=== PATIENT | male | born 1935 | race Caucasian/White ===

== ENCOUNTER → 2021-05-08 09:25 | Outpatient (BNVA) | payer MEDICARE, SELFPAY | PROVIDERS: PCP Pediatrics; Visit Provider Surgery Vascular Surgery | DX: I71.4 Abdominal aortic aneurysm, without rupture (principal) | CPT/HCPCS: 99202 ==

== ENCOUNTER → 2021-05-10 12:39 | Outpatient (BNVA) | payer OTHER, SELFPAY | PROVIDERS: PCP Pediatrics; Visit Provider Internal Medicine Cardiovascular Disease | DX: Z01.810 Encounter for preprocedural cardiovascular examination (principal); I71.4 Abdominal aortic aneurysm, without rupture | CPT/HCPCS: 93005 ==

== ENCOUNTER → 2021-05-22 09:29 | Outpatient (REF) | payer MEDICARE, SELFPAY ==
--- NOTE | 2021-05-22 09:33 | CA_ITS ---
Transthoracic Echocardiogram Patient (Last, First, Middle): Kenneth Clark, Gender: Male Date of : 1935 Age: 85 Procedure Date: 05/22/2021 Procedure Type: Transthoracic Echocardiogram Location: OP Height: 165.1 cm Weight: 62.14 kg BSA: 1.68 m2 Heart Rate: bpm BP: 118 / 70 mmHg Clinical Support Tech: Referring MD: Edwin Burnette MD Doctor Of Dental Surgery: Edwin Burnette MD Symptoms: Z01.810 - Encounter for preprocedural cardiovascular exam... Study Quality: Fair ECG Rhythm: Sinus Conclusions: - Normal left ventricular size and systolic function. - E/E prime ratio is between 8 and 15 consistent with indeterminate filling pressures. - Normal right ventricular cavity size and systolic function. - There is mild calcification of the aortic valve. There is mild thickening of the aortic valve. There is no aortic valve stenosis. - There is mild dilatation of the ascending aorta measuring 4.00 cm. Findings Left Ventricle Normal left ventricular size and systolic function. There is mildly increased left ventricular wall thickness. The visually estimated ejection fraction is between 60-65%. There is no evidence of regional wall motion abnormalities. Abnormal diastolic function is noted. Spectral Doppler is indicative of an impaired relaxation filling pattern. E/E prime ratio is between 8 and 15 consistent with indeterminate filling pressures. Right Ventricle Normal right ventricular cavity size and systolic function. Atria Both atria are normal in size. Aortic Valve There is mild calcification of the aortic valve. There is mild thickening of the aortic valve. There is no aortic valve stenosis. There is trace (trivial) aortic valve regurgitation. Mitral Valve The mitral valve appears normal. There is trace mitral valve regurgitation. There is no mitral valve stenosis. Pulmonic Valve The pulmonic valve is likely normal. There is no pulmonic valve regurgitation. Tricuspid Valve Normal tricuspid valve structure and function. There is trace tricuspid valve regurgitation. Tricuspid regurgitation envelope is inadequate for calculation of right ventricular systolic pressure. Normal right atrial pressure. Great Vessels There is mild dilatation of the ascending aorta measuring 4.00 cm. The visualized portions of the pulmonary artery and branches are normal. Venous The inferior vena cava is normal in size and collapses greater than 50% with inspiration. Pericardium/Pleural Normal pericardial structure. There is no evidence of pericardial effusion. Prior Study Comparison No prior study available for comparison. Measurements 2D Linear Measurements IVSd: 1.23 0.6-0.9/0.6-1.0 cm LVIDd: 3.29 3.9-5.3/4.2-5.9 cm LVIDd Index: 1.96 2.4-3.2/2.2-3.1 cm/m2 LVIDs: 2.13 2.0-3.6 cm LVPWd: 1.23 0.7-1.1 cm Ao Root: 3.40 2.1-3.5 cm LA Diam: 2.60 2.7-3.8/3.0-4.0 cm LAIDs Index: 1.55 1.5-2.3 cm/m2 LV Mass: 160.68 67-162/88-224 g LV Mass Index: 95.64 43-95/49-115 g/m2 LVOT Diam: 2.00 3.0+(-)1.3 cm Mitral Valve MV Pk E: 0.43 MV PK A: 0.93 MV Decel Time: 190.00 E/A: 0.50 E'Lateral: 4.90 E'Medial: 4.35 E/E' Med: 10.00 E/E' Lat: 8.80 PHT: 56.00 MVA PHT: 3.93 Decel Posey: 2.28 Aortic Valve AoV Pk Ángel: 1.67 AoV Mn Ángel: 1.25 AoV VTI: 0.34 AoV Pk Grad: 11.00 Aov Mn Grad: 7.00 SUMAYA Cont.VTI: 1.77 LVOT LVOT Pk Ángel: 0.83 LVOT Mn Ángel: 0.58 LVOT VTI: 0.19 LVOT Pk Grad: 3.00 LVOT Mn Grad: 2.00 LVOT Diam: 2.00 LVOT Area: 3.14 Diastolic Function MV Pk E: 0.43 MV Pk A: 0.93 E/A: 0.50 E'Medial: 4.35 E/E' Med: 10.00 E' Laterial: 4.90 E/E' Lat: 8.80 Tricuspid Valve TR Pk Ángel: 2.33 TR Pk Grad: 22.00 Great Vessels Aorta Ao Root-2D: 3.40 2.0-3.7 cm Ao Asc: 4.00 2.1-3.4 cm Pulmonary Valve PV Pk Ángel: 1.79 Peak PV Grad: 13.00 Updated in Other Vendor System with Status of Final Edwin Burnette MD electronically signed on 05/23/2021 6:54:50 PM with status of Final
== END ==
LOC: HO.CARD 09:29
PROVIDERS: PCP Pediatrics; Visit Provider Internal Medicine Cardiovascular Disease
DX: Z01.810 Encounter for preprocedural cardiovascular examination (principal)
CPT/HCPCS: 93306

== ENCOUNTER 2021-05-28 06:15 | Inpatient (IN) | payer MEDICARE, SELFPAY ==
[2021-05-16 12:16] VITALS: BMI 23.2
[2021-05-16 12:23] VITALS: BP 105/55; PULSE 70; RESP 20; O2SAT 97
--- NOTE | 2021-05-16 12:38 | HO.ANESPROP2 ---
Documented by User: Re Ramirez NP 05/17/21 12:40 HPI - Anesthesia Eval Consult details Narrative: 85yo M for Aortic Endovascular Repair PMFSH Active Problems Active Problems: All Active Problems (Updated 05/16/21 @ 12:16 by Kierra Kern RN) AAA (abdominal aortic aneurysm) without rupture (Acute) Preop cardiovascular exam (Acute) Past Medical History Medical History Asthma COVID-19 vaccine series completed Exercises daily GERD (gastroesophageal reflux disease) Hypercholesteremia Peripheral artery disease Restless leg syndrome Small bowel obstruction Family History Family History Mother Ovarian cancer Breast cancer Father Stroke Sister Lung cancer Brother Lung cancer Sister Arthritis Family history of problems with anesthesia: No Surgical History Surgical History H/O colonoscopy H/O hernia repair History of cholecystectomy History of esophagogastroduodenoscopy (EGD) Hx of exploratory laparotomy History of Problems with Anesthesia: No Social History Social History Are you a primary director of healthcare systems to a significant other at home: No Do you presently have visiting nurse or other home services: No Alcohol intake: never Patient Tobacco Use Status: Never used Tobacco Use of substances other than those prescribed or required for medical reasons: No Have you been hit, kicked, punched, or otherwise hurt by someone within the past year? If so, by whom?: No Are you DNR?: No Advance Directives: Yes Advance Directives Information Provided: Yes Advance Directives on File: Yes Advance Directives Date on File: 05/16/21 Recently lost weight without trying: No Eating poorly because of decreased appetite: No Nutrition Risks: No Nutritional Risk Poor oral hygiene: No (upper full denture) Narrative Narrative: No recent illness No CP/SOB with extensive hiking, kayaking, mountain climbing, biking Meds Allergies Allergy/AdvReac Type Severity Reaction Status Date / Time No Known Allergies Allergy Verified 05/28/21 06:35 Home Medications Medication Instructions Recorded Confirmed Last Taken Type clonazepam 1 mg tablet 1 mg PO BEDTIME PRN 05/08/21 05/15/21 Unknown History fluticasone propionate 0.05 % 1 appl TOPICAL DAILY 05/08/21 05/15/21 Unknown History topical cream omeprazole 20 mg capsule,delayed 20 mg PO DAILY 05/08/21 05/15/21 Unknown History release rosuvastatin 40 mg tablet 40 mg PO DAILY 05/08/21 05/15/21 Unknown History albuterol sulfate 90 mcg/actuation 2 puff INHALATION Q4-6H PRN 05/15/21 05/15/21 Unknown History aerosol inhaler (ProAir HFA) aspirin 81 mg tablet 81 mg PO DAILY 05/16/21 05/16/21 05/27/21 History cholecalciferol (vitamin D3) 50 50 mcg PO DAILY 05/16/21 05/16/21 Unknown History mcg (2,000 unit) capsule (Vitamin D3) multivitamin 1 tab PO DAILY 05/16/21 05/16/21 Unknown History omega-3 fatty acids-fish oil 684 1 cap PO DAILY 05/16/21 05/16/21 Unknown History mg-1,200 mg capsule,delayed release Exam Exam Date and Time: May 16, 2021 1238 Height,Weight and Vital Signs: Height 5 ft 5 in Weight 63.3 kg Last Vital Signs Pulse 70 05/16/21 12:23 Resp 20 05/16/21 12:23 BP 105/55 L 05/16/21 12:23 Pulse Ox 97 05/16/21 12:23 Pertinent Lab Results Pertinent Lab Results: 05/16/21 13:15 Type and Screen Routine 05/16/21 13:20 Basic Metabolic Panel Routine Complete Blood Count no Diff Routine Partial Thromboplastin Time Routine Prothrombin Time INR Routine Laboratory Last Values WBC 5.9 X10*3/uL (4.8-10.8) 05/16/21 13:20 RBC 4.88 X10*6/uL (4.60-5.80) 05/16/21 13:20 Hgb 15.1 g/dl (14.0-18.0) 05/16/21 13:20 Hct 45.7 % (42.0-52.0) 05/16/21 13:20 MCV 93.6 fL (80.0-98.0) 05/16/21 13:20 MCH 30.9 pg (27.0-33.0) 05/16/21 13:20 MCHC 33.0 g/dl (31.0-36.0) 05/16/21 13:20 RDW 12.3 % (11.0-16.0) 05/16/21 13:20 Plt Count 157 X10*3/uL (160-400) L 05/16/21 13:20 MPV 9.1 fL (9.4-12.4) L 05/16/21 13:20 Absolute Nucleated RBC 0.000 X10*3/uL (0.0-0.012) 05/16/21 13:20 Nucleated RBC % (auto) 0.0 /100WBC (0.0-0.2) 05/16/21 13:20 PT 12.3 SEC (9.9-13.0) 05/16/21 13:20 INR 1.1 (0.9-1.1) 05/16/21 13:20 APTT 40.4 SEC (24.1-38.0) H 05/16/21 13:20 Sodium 139 mmol/L (135-145) 05/16/21 13:20 Potassium 4.4 mmol/L (3.3-5.1) 05/16/21 13:20 Chloride 105 mmol/L (96-108) 05/16/21 13:20 Carbon Dioxide 29 mmol/L (22-29) 05/16/21 13:20 Anion Gap 9 (12-20) L 05/16/21 13:20 BUN 22 mg/dL (9-16) H 05/16/21 13:20 Creatinine 0.94 mg/dL (0.5-1.4) 05/16/21 13:20 Estim Creat Clear Calc 49.9 05/16/21 13:20 Estimated GFR > 60 05/16/21 13:20 Random Glucose 90 mg/dL (60-115) 05/16/21 13:20 Calcium 9.5 mg/dL (8.4-10.2) 05/16/21 13:20 Blood Type O Positive 05/16/21 13:15 Antibody Screen NEGATIVE 05/16/21 13:15 Narrative Narrative: EKG 04/2021 Sinus rhythm 79 beats per minute, leftward axis, cannot rule out inferior infarct, QT interval 449 milliseconds ECHO 05/2021 (pending) Airway Mallampati Class: II TM Dist: >3cm Neck ROM: Full Denture: Upper Heart: RRR Lungs: CTAB Assessment and Plan Assessment Anesthesia Assessment: Anesthesia Plan Discussed (Reviewed GA) and PAT Visit Final Anesthetic Review Family History of Problems with Anesthesia: No History of Problems with Anesthesia: No Documented by User: Marizol Sellers MD 05/28/21 08:15 [facility] Past Medical History Medical History Asthma COVID-19 vaccine series completed Exercises daily GERD (gastroesophageal reflux disease) Hypercholesteremia Peripheral artery disease Restless leg syndrome Small bowel obstruction Family History Family History Mother Ovarian cancer Breast cancer Father Stroke Sister Lung cancer Brother Lung cancer Sister Arthritis Surgical History Surgical History H/O colonoscopy H/O hernia repair History of cholecystectomy History of esophagogastroduodenoscopy (EGD) Hx of exploratory laparotomy Social History Social History Are you a primary director of healthcare systems to a significant other at home: No Do you presently have visiting nurse or other home services: No Alcohol intake: never Patient Tobacco Use Status: Never used Tobacco Use of substances other than those prescribed or required for medical reasons: No Have you been hit, kicked, punched, or otherwise hurt by someone within the past year? If so, by whom?: No Are you DNR?: No Advance Directives: Yes Advance Directives Information Provided: Yes Advance Directives on File: Yes Advance Directives Date on File: 05/16/21 Recently lost weight without trying: No Eating poorly because of decreased appetite: No Nutrition Risks: No Nutritional Risk Poor oral hygiene: No (upper full denture) Meds Allergies Allergy/AdvReac Type Severity Reaction Status Date / Time No Known Allergies Allergy Verified 05/28/21 06:35 Home Medications Medication Instructions Recorded Confirmed Last Taken Type clonazepam 1 mg tablet 1 mg PO BEDTIME PRN 05/08/21 05/15/21 Unknown History fluticasone propionate 0.05 % 1 appl TOPICAL DAILY 05/08/21 05/15/21 Unknown History topical cream omeprazole 20 mg capsule,delayed 20 mg PO DAILY 05/08/21 05/15/21 Unknown History release rosuvastatin 40 mg tablet 40 mg PO DAILY 05/08/21 05/15/21 Unknown History albuterol sulfate 90 mcg/actuation 2 puff INHALATION Q4-6H PRN 05/15/21 05/15/21 Unknown History aerosol inhaler (ProAir HFA) aspirin 81 mg tablet 81 mg PO DAILY 05/16/21 05/16/21 05/27/21 History cholecalciferol (vitamin D3) 50 50 mcg PO DAILY 05/16/21 05/16/21 Unknown History mcg (2,000 unit) capsule (Vitamin D3) multivitamin 1 tab PO DAILY 05/16/21 05/16/21 Unknown History omega-3 fatty acids-fish oil 684 1 cap PO DAILY 05/16/21 05/16/21 Unknown History mg-1,200 mg capsule,delayed release Exam Airway Loose/Missing/Broken Teeth: Yes and Lower Assessment and Plan Final Anesthetic Review ASA Class: II and III Final Preanesthetic Review: Meds/Allgs Chart Reviewed, Consent Obtained/Reviewed and Anes Risks/Benef Reviewed Patient Risk: Low Procedure Risk: Intermediate Anesthetic Plan Anesthetic Plan: GA Disposition: Standard PACU
[2021-05-16 13:46] LABS: Hematocrit 45.7 % (42.0-52.0); Hemoglobin 15.1 g/dl (14.0-18.0); Mean Corpuscular Hemoglobin 30.9 pg (27.0-33.0); Mean Corpuscular Volume 93.6 fL (80.0-98.0); Mean Platelet Volume 9.1 fL (9.4-12.4); Platelet Count 157 X10*3/uL (160-400); Red Blood Count 4.88 X10*6/uL (4.60-5.80); Red Cell Distribution Width 12.3 % (11.0-16.0); White Blood Count 5.9 X10*3/uL (4.8-10.8)
[2021-05-16 14:12] LABS: INTERNATIONAL NORM RATIO 1.1 (0.9-1.1); Prothrombin Time 12.3 SEC (9.9-13.0)
[2021-05-16 14:14] LABS: Partial Thromboplastin Time 40.4 SEC (24.1-38.0)
[2021-05-16 14:15] LABS: Anion Gap 9 (12-20); Blood Urea Nitrogen 22 mg/dL (9-16); Calcium 9.5 mg/dL (8.4-10.2); Carbon Dioxide 29 mmol/L (22-29); Chloride 105 mmol/L (96-108); Creatinine Clr Calc Pharmacy 49.9; Estimated Glomerular Filt Rate > 60; Glucose Random 90 mg/dL (60-115); Potassium 4.4 mmol/L (3.3-5.1); Sodium 139 mmol/L (135-145)
[2021-05-28] VITALS (25 sets, daily range): BP systolic 92–126; BP diastolic 43–67; PULSE 62–88; RESP 10–19; TEMP 36.3–36.8; O2SAT 94–100
--- NOTE | ~2021-05-28 | FL_ITS ---
EXAMINATION: XR FLUOROSCOPY WITH IMAGES CLINICAL INFORMATION: Abdominal aortic aneurysm COMPARISON: None. TECHNIQUE: Fluoroscopy performed by the liver. Fluoroscopy time: 12.6 minutes DAP: 32 mGycm2 Images: 8 FINDINGS: Fluoroscopy guidance was provided for abdominal aortic aneurysm stent graft. Images demonstrate a stent graft in the lower abdominal aorta and bilateral proximal common iliac arteries. FL/FL guidance in OR IMPRESSION: Intraoperative fluoroscopic guidance for aortobiiliac stent graft.
[2021-05-28 06:45] LABS: Hematocrit 45.4 % (42.0-52.0); Hemoglobin 15.4 g/dl (14.0-18.0); Mean Corpuscular HGB Conc 33.9 g/dl (31.0-36.0); Mean Corpuscular Hemoglobin 31.1 pg (27.0-33.0); Mean Corpuscular Volume 91.7 fL (80.0-98.0); Mean Platelet Volume 8.9 fL (9.4-12.4); Platelet Count 140 X10*3/uL (160-400); Red Blood Count 4.95 X10*6/uL (4.60-5.80); Red Cell Distribution Width 12.4 % (11.0-16.0); White Blood Count 6.5 X10*3/uL (4.8-10.8)
[2021-05-28 07:00] LABS: Anion Gap 13 (12-20); Blood Urea Nitrogen 18 mg/dL (9-16); Calcium 9.2 mg/dL (8.4-10.2); Carbon Dioxide 23 mmol/L (22-29); Chloride 109 mmol/L (96-108); Creatinine Clr Calc Pharmacy 48.4; Estimated Glomerular Filt Rate > 60; Glucose Random 97 mg/dL (60-115); Potassium 4.4 mmol/L (3.3-5.1); Sodium 141 mmol/L (135-145)
[2021-05-28 07:01] LABS: INTERNATIONAL NORM RATIO 1.1 (0.9-1.1); Prothrombin Time 12.2 SEC (9.9-13.0)
[2021-05-28 07:04] LABS: Partial Thromboplastin Time 38.8 SEC (24.1-38.0)
[2021-05-28] MEDS: Lactated Ringers 1,000 ML 50 ML IVCONT (07:04)
[2021-05-28 07:07] LABS: COVID-19 Test Negative (Negative)
--- NOTE | 2021-05-28 07:33 | MHC.SHP ---
Pre-Procedural Eval Section A Date of Service: 05/28/21 The patient is an INPATIENT: No The History & Physical has been completed within 30 days and I have reviewed it.: Yes Section B Chief Complaint: Post op Allergies: Allergies Allergy/AdvReac Type Severity Reaction Status Date / Time No Known Allergies Allergy Verified 05/28/21 06:35 Plan I have reviewed the history and physical and performed a pertinent physical examination on my patient. No changes have occurred unless specified.
--- NOTE | 2021-05-28 07:36 | PC.NURSE ---
pt to neuro wnl. speech clear, tongue midline, smile symetrical, hg+st, bettencourt. pulses as documented on flow sheet. lungs clear bilat. resp easy and reg. pt little weepy offered reassurance. resting quielty.
--- NOTE | 2021-05-28 10:33 | W.PM.OPN ---
Operative Note Operative Note Date of Service: 05/28/21 Narrative: Operative note by [facility] Preoperative diagnosis:Abdominal aortic aneurysm Postoperative diagnosis: same Procedure:1 endovascular aortic aneurysm repair 2 right femoral endarterectomy Surgeon:Andrew Morel M.D. Rail Car Loader: Dr. Alexandre Anesthesia: general Specimens: 1 Drains: non2 Estimated blood loss: 200 mL with 125 given back as Cell Saver Indications: Very pleasant 85-year-old gentleman who was discovered to have an abdominal aortic aneurysm. This was on workup with CT scan for a bowel obstruction. It was subsequently discovered that he had a 5.5 cm abdominal aortic aneurysm and he now presents for endovascular possible open repair The patient has signed the informed consent after reviewing risks, complications, benefits, and alternatives previously discussed with the patient. The patient was given the opportunity to ask any additional questions or voice any concerns. All questions were answered to the patient's satisfaction. Procedure in detail: Patient was brought to the operating room prior to which a time-out was called for patient identification and site verification cutdown was performed on the right groin using a a transverse incision. We were able to isolate out the common femoral artery. We inserted a 7 Stateless sheath into the ipsilateral vessel the patient's right femoral artery. And a percutaneous 7 Stateless sheath on the contralateral side the patient's left femoral artery using ultrasound guidance. Angiogram was performed to measure vessel length and characterize the anatomy and its topography. We exchanged out the right-sided Bentson wire for a stiff Lunderquist wire. We loaded the JULISA 28-90/16-30 a FX2 bifurcated device onto the stiff wire and advanced the contralateral wire up through the 19 Stateless outer diameter FX introducer sheath using a wire guide. Contralateral wire snared and pulled out through the contralateral side. Bifurcated device was transferred into the FX introducer sheath and advanced under fluoro until the distal limbs were above the aortic bifurcation releasing the limbs of the graft. Pulled the entire system down on to the aortic bifurcation. Deployed the main body of the graft by pulling the control handle. Deployed the contralateral limb by pulling the yellow cover then advancing a pigtail over the contra wire until the tip was in contact with the wire lock. Held the pigtail catheter in place and pulled on the contra wire to release it from the wire lock. We deployed the amps E limb by pinning the inner core and retracting the a FX introducer sheath. We advanced and a chloride the A34-34/C 80 suprarenal endograft and performed an angiogram to visualize the renal arteries. We performed a final angiogram removed catheters and sheaths and closed vascular access. The left side was closed with a StarClose closure device. Adequate hemostasis was achieved. Right side was closed using a 6 0 Prolene. Prior to closure a local endarterectomy had to be performed. Specimen was then sent off. We then closed off the vessel. We flushed prior to closure. Adequate hemostasis was achieved. We were able to reestablish flow nicely. Deep layer was reapproximated using 2 0 Polysorb superficial layer with 3-0 poly Sorb finally skin with a 4-0 Monocryl suture. Dermabond was used as a sterile dressing. At the end the case sponge instrument counts were correct. Interpretation of films: 1. Initial angiogram demonstrated abdominal aortic aneurysm which was identified and in agreement with CT scan. Marker pig was used to measure out the details. We deployed the graft. Post deployment demonstrated appropriate placement of graft with no evidence of type 1 endoleak. There was a delayed type 2 endoleak from the lumbars. REG appear to close off. Conclusion: 1. Successful deployment of Endologix AFX2 endograft This note is constructed using voice recognition software. While every effort has been made to ensure accuracy, cement despatch operator errors may have been included. Thank you for allowing me to participate in the care of your patient. Yours sincerely, Andrew Morel MD, FACS, R.P.V.I.
--- NOTE | 2021-05-28 11:02 | PC.NURSE ---
Dr. Morel at bedside assessing patient and pulses.unable to locate pedal
[2021-05-28] MEDS: 0.9 % Sodium Chloride 1,000 ML 80 ML IVCONT (14:15)
--- NOTE | 2021-05-28 14:31 | PM.CCHP ---
History of Present Illness Date of Service: 05/28/21 85-year-old gentleman with underlying history of mild asthma, hyperlipidemia, anxiety, GERD status post elective endovascular AAA repair on 05/28/2021 by vascular surgery, being monitored in the intensive care unit in the immediate postop period. [facility] Past Medical History Medical History Asthma COVID-19 vaccine series completed Exercises daily GERD (gastroesophageal reflux disease) Hypercholesteremia Peripheral artery disease Restless leg syndrome Small bowel obstruction Family History Family History Mother Ovarian cancer Breast cancer Father Stroke Sister Lung cancer Brother Lung cancer Sister Arthritis Surgical History Surgical History H/O colonoscopy H/O hernia repair History of cholecystectomy History of esophagogastroduodenoscopy (EGD) Hx of exploratory laparotomy Social History Social History Are you a primary ocular care technologist to a significant other at home: No Do you presently have visiting nurse or other home services: No Alcohol intake: never Patient Tobacco Use Status: Never used Tobacco Use of substances other than those prescribed or required for medical reasons: No Have you been hit, kicked, punched, or otherwise hurt by someone within the past year? If so, by whom?: No Are you DNR?: No Advance Directives: Yes Advance Directives Information Provided: Yes Advance Directives on File: Yes Advance Directives Date on File: 05/16/21 Recently lost weight without trying: No Eating poorly because of decreased appetite: No Nutrition Risks: No Nutritional Risk Poor oral hygiene: No (upper full denture) Meds Allergies Allergy/AdvReac Type Severity Reaction Status Date / Time No Known Allergies Allergy Verified 05/28/21 06:35 Active Medications: Current Medications Acetaminophen (Acetaminophen 325 Mg Tablet) 650 mg PO Q6H PRN PRN Reason: Pain, Mild (Pain Scale 1-3) Aspirin (Aspirin Enteric Coated 81 Mg Tablet.) 81 mg PO DAILY [place] Atorvastatin Calcium (Atorvastatin Calcium 80 Mg Tablet) 80 mg PO BEDTIME [place] Sodium Chloride (Ns) 1,000 mls @ 80 mls/hr IVCONT .[id number] [place] Last Admin: 05/28/21 14:15 Dose: 80 mls/hr Documented by: Morphine Sulfate (Morphine Sulfate 2 Mg/Ml Cartridge) 2 mg IVPUSH Q4H PRN; Protocol PRN Reason: Pain, Severe (Pain Scale 7-10) Omeprazole (Omeprazole 20 Mg Capsule.Dr) 20 mg PO DAILY@0630 [facility] Ondansetron HCl (Ondansetron Hcl 4 Mg/2 Ml Vial) 4 mg IVPUSH Q8H PRN PRN Reason: Nausea and Vomiting Oxycodone HCl (Oxycodone Hcl Immed Release 5 Mg Tablet) 5 mg PO Q4H PRN PRN Reason: Pain, Moderate (Pain Scale 4-6 Sodium Chloride (0.9 % Sodium Chloride Flush 3 Ml Syringe) 3 ml IVFLUSH QSHIFT [facility] Home Medications Medication Instructions Recorded Confirmed Last Taken Type clonazepam 1 mg tablet 1 mg PO BEDTIME PRN 05/08/21 05/15/21 Unknown History fluticasone propionate 0.05 % 1 appl TOPICAL DAILY 05/08/21 05/15/21 Unknown History topical cream omeprazole 20 mg capsule,delayed 20 mg PO DAILY 05/08/21 05/15/21 Unknown History release rosuvastatin 40 mg tablet 40 mg PO DAILY 05/08/21 05/15/21 Unknown History albuterol sulfate 90 mcg/actuation 2 puff INHALATION Q4-6H PRN 05/15/21 05/15/21 Unknown History aerosol inhaler (ProAir HFA) aspirin 81 mg tablet 81 mg PO DAILY 05/16/21 05/16/21 05/27/21 History cholecalciferol (vitamin D3) 50 50 mcg PO DAILY 05/16/21 05/16/21 Unknown History mcg (2,000 unit) capsule (Vitamin D3) multivitamin 1 tab PO DAILY 05/16/21 05/16/21 Unknown History omega-3 fatty acids-fish oil 684 1 cap PO DAILY 05/16/21 05/16/21 Unknown History mg-1,200 mg capsule,delayed release Physical Exam Vital Signs: Vital Signs: Last Vital Signs Temp 97.3 F 05/28/21 14:00 Pulse 67 05/28/21 14:00 Resp 10 L 05/28/21 14:00 BP 109/49 L 05/28/21 14:00 Pulse Ox 97 05/28/21 14:00 Body Mass Index 23.2 Const: General: no acute distress, alert and awake Eyes: Sclerae: sclerae normal EOM: EOMs intact bilaterally Neck: Neck: Yes no lymphadenopathy, Yes trachea midline and Yes supple Resp: Effort & Inspection: normal respiratory effort and no respiratory distress Auscultation: clear to auscultation bilaterally Cardio: Rate: regular rate Rhythm: regular rhythm Heart sounds: no gallops, no murmurs and no rubs GI: Palpation (GI): Soft to palpation and Other GI palpation findings present ( Nontender) Auscultation: normal bowel sounds Extrem: General: Yes no pedal edema, No clubbing, No cyanosis and Yes other (Bilateral femoral access sites without hematoma) Results Labs CBC and Chem 7: 05/28/21 06:38 05/28/21 06:38 Labs: Laboratory Results - last 24 hr 05/28/21 05/28/21 05/28/21 06:13 06:38 06:38 MCV 91.7 MCH 31.1 MCHC 33.9 RDW 12.4 Plt Count 140 L MPV 8.9 L Absolute Nucleated RBC 0.000 Nucleated RBC % (auto) 0.0 PT 12.2 INR 1.1 APTT 38.8 H Anion Gap Estim Creat Clear Calc Estimated GFR Random Glucose Calcium COVID-19 (JEMAL) Negative COVID-19 Clin Com See Note 05/28/21 06:38 MCV MCH MCHC RDW Plt Count MPV Absolute Nucleated RBC Nucleated RBC % (auto) PT INR APTT Anion Gap 13 Estim Creat Clear Calc 48.4 Estimated GFR > 60 Random Glucose 97 Calcium 9.2 COVID-19 (JEMAL) COVID-19 Clin Com Assessment and Plan (1) AAA (abdominal aortic aneurysm) without rupture: Status: Acute Impression: 85-year-old gentleman status post elective endovascular AAA repair on 05/28/2021 being monitored in the intensive care unit in the postop period. Plan: Continue with 13 postop monitoring. Keep systolic blood pressure under 160mmHg.
[2021-05-29] VITALS (14 sets, daily range): BP systolic 90–174; BP diastolic 48–108; PULSE 67–94; RESP 10–23; TEMP 36.7–37.2; O2SAT 92–98; BMI 27.6
[2021-05-29] MEDS: Acetaminophen 325 MG TABLET 650 MG PO (00:27)
[2021-05-29] MEDS: 0.9 % Sodium Chloride 1,000 ML 80 ML IVCONT (02:36)
--- NOTE | 2021-05-29 05:03 | PC.NURSE ---
Addendum entered by Esteban Velez RN 05/29/21 05:38: Tracee Paz NP aware of issue w/ carmona and aware of removal. Original Note: Shift eval 11p-7a: Patient post op elective endovascular AAA repair on 05/28/2021 by vascular surgery. Bilat groin bruising, right groin - skin glue - incision edges approximated, no drainage. Left groin 2x2 dressing w/ tagaderm clean, dry & intact. Vitals stable, Left radial A-line - appropriate waveform, correlating w/ manual BP. Left pedal pulse continues to be absent, faint right pedal pulse. Bilat post tib pulses + with ultrasound. Patient c/o restless legs - usually takes Tylenol to help - medicated w/ Tylenol at 0027 with good affect. Patient reports relief and able to sleep. Patient c/o small amt leaking & intermit inability to void with carmona - output approx 50ml/hr. Confirmed balloon intact, attempted to irrigate, worked again, but then at 0430, patient state carmona bothering him again. Carmona removed without issue. Patient voided 50ml pink/yellow urine in urinal.
[2021-05-29 05:35] LABS: MANUAL DIFF FLAG NO
[2021-05-29 05:50] LABS: Basophils Percent Auto 0.2 % (0-2); Hematocrit 36.2 % (42.0-52.0); Hemoglobin 12.1 g/dl (14.0-18.0); Imm Gran Abs Auto 0.05 X10*3/uL (0.00-0.03); Imm Gran Pct Auto 0.4 % (0.0-0.4); Lymphocytes Absolute Auto 1.1 X10*3/uL (1.2-4.9); Lymphocytes Percent Auto 9.6 % (20-40); Mean Corpuscular HGB Conc 33.4 g/dl (31.0-36.0); Mean Corpuscular Hemoglobin 30.6 pg (27.0-33.0); Mean Corpuscular Volume 91.4 fL (80.0-98.0); Mean Platelet Volume 9.7 fL (9.4-12.4); Monocytes Absolute Auto 1.1 X10*3/uL (0.1-1.2); Monocytes Percent Auto 8.9 % (2-11); Neutrophils Absolute Auto 9.6 x10*3/uL (2.0-8.3); Neutrophils Percent Auto 80.9 % (45-73); Platelet Count 126 X10*3/uL (160-400); Red Blood Count 3.96 X10*6/uL (4.60-5.80); Red Cell Distribution Width 12.3 % (11.0-16.0); White Blood Count 11.8 X10*3/uL (4.8-10.8)
[2021-05-29 05:53] LABS: Anion Gap 9 (12-20); Blood Urea Nitrogen 17 mg/dL (9-16); Calcium 8.3 mg/dL (8.4-10.2); Carbon Dioxide 22 mmol/L (22-29); Chloride 112 mmol/L (96-108); Creatinine Clr Calc Pharmacy 60.2; Estimated Glomerular Filt Rate > 60; Glucose Random 118 mg/dL (60-115); Potassium 3.9 mmol/L (3.3-5.1); Sodium 139 mmol/L (135-145)
[2021-05-29] MEDS: Omeprazole 20 MG CAPSULE.DR PO (06:36)
--- NOTE | 2021-05-29 06:45 | HO.POSTANES ---
Post Anesthesia Evaluation Post Anesthesia Evaluation Vital Signs: Vital Signs Temp Pulse Resp BP Pulse Ox 05/29/21 06:00 68 10 L 121/55 L 96 05/29/21 05:00 70 12 114/52 L 92 05/29/21 04:00 98.1 F 75 14 113/52 L 96 05/29/21 02:51 80 16 124/55 L 96 05/29/21 02:00 82 18 125/60 95 05/29/21 01:00 85 17 109/51 L 94 05/28/21 23:56 98.2 F 88 13 105/47 L 94 05/28/21 23:00 85 16 92/43 L 94 05/28/21 22:00 87 17 100/50 L 95 05/28/21 21:00 83 18 100/44 L 95 05/28/21 20:00 98.2 F 84 18 101/45 L 96 05/28/21 19:00 86 18 110/50 L 95 Anesthesia: General Endotracheal-GETA Mental Status: Awake Pain Control: Satisfactory Nausea/Vomiting: None Hydration: Adequate Anesthesia-Related Issues: No Anes. Related Issues
[2021-05-29] MEDS: 0.9 % Sodium Chloride Flush 3 ML SYRINGE IVFLUSH (07:26)
[2021-05-29] MEDS: Aspirin Enteric Coated 81 MG TABLET.DR PO (07:26)
--- NOTE | 2021-05-29 10:00 | MHC.CM.PN ---
Met with pt to discuss d/c planning; pt states he is independent with all care needs, drives, kayaks, hikes - he has no services and does not have any adaptive equipment: HCP copy requested: pt states he will call his dtr for transportation. No services anticipated. IMM completed and in chart
--- NOTE | 2021-05-29 13:03 | P.DS_ITS ---
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 He was observed in the ICU overnight with no issues. No postoperative issues. Postop day 1 A-line and [place] were removed. He was tolerating a diet. He was up and ambulating. He was subsequently discharged. Condition upon discharge was stable. Time Spent with Patient Time attestation: Total time spent providing and/or coordinating discharge services: Discharge coordination time: Greater than 30 minutes Quality: Stroke Does the patient have a stroke diagnosis?: No Physical Exam Vital Signs: Vital Signs: Last Vital Signs Temp 98.9 F 05/29/21 12:00 Pulse 67 05/29/21 12:00 Resp 13 05/29/21 12:00 BP 174/65 H 05/29/21 12:00 Pulse Ox 98 05/29/21 12:00 Body Mass Index 27.6 DS: Data Data Completed and Pending Pending studies at discharge: Pending at discharge 05/28/21 09:25 Surgical [PTH] Routine Labs on day of discharge: Laboratory Results - last 24 hr 05/29/21 05/29/21 05:15 05:15 WBC 11.8 H RBC 3.96 L Hgb 12.1 L D Hct 36.2 L D MCV 91.4 MCH 30.6 MCHC 33.4 RDW 12.3 Plt Count 126 L MPV 9.7 Immature Gran % (Auto) 0.4 Neut % (Auto) 80.9 H Lymph % (Auto) 9.6 L [place] % (Auto) 8.9 Eos % (Auto) 0.0 Baso % (Auto) 0.2 Lymph # (Auto) 1.1 L [place] # (Auto) 1.1 Eos # (Auto) 0.0 Baso # (Auto) 0.0 Abs Immat Gran (auto) 0.05 H Absolute Neuts (auto) 9.6 H Absolute Nucleated RBC 0.000 Nucleated RBC % (auto) 0.0 Sodium 139 Potassium 3.9 Chloride 112 H Carbon Dioxide 22 Anion Gap 9 L BUN 17 H Creatinine 0.78 Estim Creat Clear Calc 60.2 Estimated GFR > 60 Random Glucose 118 H Calcium 8.3 L D Discharge Plan Discharge Patient Disposition: Home, Self-Care Discharge Diagnosis: Status post endovascular aneurysm repair Referrals: Luis Alberto Davey MD [Primary Care Provider] - 1 Week Discharge Medications: New oxycodone-acetaminophen [Percocet] 5-325 mg tablet 1 tab PO Q8H PRN (Reason: pain) Qty: 10 RF: 0 Continued albuterol sulfate [ProAir HFA] 90 mcg/actuation Hfa Aerosol Inhaler 2 puff INHALATION Q4-6H PRN (Reason: Shortness Of Breath) RF: 0 multivitamin Tablet 1 tab PO DAILY RF: 0 aspirin 81 mg Tablet 81 mg PO DAILY RF: 0 omega-3 fatty acids-fish oil 684-1,200 mg Capsule,Delayed Release(Dr/Ec) 1 cap PO DAILY RF: 0 cholecalciferol (vitamin D3) [Vitamin D3] 50 mcg (2,000 unit) Capsule 50 mcg PO DAILY RF: 0 rosuvastatin 40 mg tablet 40 mg PO DAILY RF: 0 clonazepam 1 mg tablet 1 mg PO BEDTIME PRN (Reason: Insomnia) RF: 0 omeprazole 20 mg capsule,delayed release(DR/EC) 20 mg PO DAILY RF: 0 fluticasone propionate 0.05 % cream 1 appl topical DAILY RF: 0 Discharge Orders: Discharge Order (Routine); Ordered 05/29/21 Ordered By: Andrew Morel Diet: advance to usual diet Activity on Discharge: As tolerated Stand Alone Forms: Patient Portal Discharge page Care Plan Goals: Monitor aortic aneurysm Health Concerns: Aortic aneurysm Plan of Treatment: Status post endovascular repair, surveillance follow-up Assessment: Abdominal aortic aneurysm without rupture
== END 2021-05-29 13:28 | disposition home or self-care (01) | DRG 269 ==
LOC: HO.SSSA 06:19 → HO.ICU 11:59
PROVIDERS: Nurse Practitioner; Admitting Provider Surgery Vascular Surgery; PCP Pediatrics; Visit Provider Internal Medicine Pulmonary Disease
PROC: 04V03ZZ Restriction of Abdominal Aorta, Percutaneous Approach (ICD-10-PCS; principal; 2021-05-28 07:30)
DX: I71.4 Abdominal aortic aneurysm, without rupture (principal); G25.81 Restless legs syndrome; J45.909 Unspecified asthma, uncomplicated; K21.9 Gastro-esophageal reflux disease without esophagitis; Z20.822 Contact with and (suspected) exposure to COVID-19; Z79.51 Long term (current) use of inhaled steroids; Z79.82 Long term (current) use of aspirin; Z79.899 Other long term (current) drug therapy
CPT/HCPCS: 36415; 80048; 85025; 85027; 85610; 85730; 86850; 86900; 86901; 87635; 88304; C1768; J0690; J1100; J1170; J2250; J2370; J3010; Q9967

== ENCOUNTER → 2021-06-14 10:11 | Outpatient (BNVA) | payer MEDICARE, SELFPAY | PROVIDERS: PCP Pediatrics; Visit Provider Surgery Vascular Surgery | DX: Z48.812 Encounter for surgical aftercare following surgery on the circulatory system (principal); I71.4 Abdominal aortic aneurysm, without rupture | CPT/HCPCS: 99212 ==

== ENCOUNTER 2021-09-05 09:29 | Outpatient (REF) | payer MEDICARE, SELFPAY ==
--- NOTE | ~2021-09-05 | CT_ITS ---
EXAMINATION: CT ANGIOGRAM ABDOMEN AND PELVIS CLINICAL INFORMATION: Abdominal aortic aneurysm without rupture. COMPARISON: None TECHNIQUE: Initial CT of the abdomen was performed without contrast followed by volumetric imaging through the abdomen and pelvis after the administration of 80 mL of Omnipaque 350 intravenous contrast. Additional 2-D coronal and sagittal reformatted images and axial 3-D maximum intensity projection MIP images were generated on the CT workstation. This CT examination was performed using dose optimization techniques as appropriate, variously including the following: *Automated exposure control *Adjustment of mA and/or kV according to patient size (this includes techniques or standardized protocols for targeted exams where dose is matched to indication/reason for exam; i.e. extremities or head) *Use of iterative reconstruction technique DLP: 324 mGy-cm VASCULAR FINDINGS: The distal descending thoracic aorta appears normal. There is an abdominal biiliac aortic stent graft present with maximal dimension of the aortic sac in the transverse plane is 5.1 x 5.0 cm (7:326). At about 12:00 and 1:00, just at the junction of the iliac and aortic components, there is a tiny area of contrast that can be seen extending beyond the struts measuring at most 3 mm. This may not be a true endoleak but just some billowing of the graft material. No iliac aneurysms are seen. The iliac bifurcations are patent. The external iliac arteries are free of disease. Internal iliac arteries demonstrate mild disease without stenosis. Common femoral arteries demonstrate mild posterior plaque without stenosis. Femoral bifurcations are patent. The celiac and SMA are patent. REG branches fill retrograde. Single renal arteries are present bilaterally without stenosis. NONVASCULAR FINDINGS: Lung Bases: The visualized lung bases are unremarkable. Liver, Gallbladder, and Biliary Tree: The liver is normal in size, shape, and attenuation. No focal hepatic lesion or biliary ductal dilatation is present. The gallbladder is unremarkable with no evidence of radiopaque gallstones, gallbladder wall thickening, or obvious pericholecystic inflammatory changes. Pancreas: Unremarkable. Spleen: Unremarkable. Adrenal Glands: Unremarkable. Kidneys and Ureters: The kidneys are normal in size, shape, and attenuation. Bilateral extensive parapelvic renal cysts are present along with some cortical cysts. These are benign Bosniak class I and need no further follow up or imaging. No definitive hydronephrosis, hydroureter, or calculi are seen. No perinephric stranding. Bladder: Unremarkable. Gastrointestinal Tract: Diverticular changes are present throughout the colon without diverticulitis. The small and large bowel is unremarkable. The appendix is unremarkable. Abdominal Wall: No significant hernia is appreciated. Lymph Nodes: No retroperitoneal lymphadenopathy. Pelvic Viscera: There is moderate BPH. Osseous Structures: Degenerative changes present in the spine, most marked from L3 through L5. There is compression of the superior endplate of L2. CT/CT angio abdomen pelvis IMPRESSION: Aortobiiliac stent graft as described above. No definitive endoleak is seen. There is some mild billowing of the graft material as described above. Fleischner guidelines were followed.
[2021-09-05 10:10] LABS: Blood Urea Nitrogen 21 mg/dL (9-16); Estimated Glomerular Filt Rate > 60
[2021-09-05] MEDS: iohexoL 350 MG/ML 100 ML INFUS..BTL IV (12:03)
== END 2021-09-05 09:30 | disposition home or self-care (01) ==
LOC: HO.CT 09:29
PROVIDERS: PCP Pediatrics; Visit Provider Surgery Vascular Surgery
DX: I71.4 Abdominal aortic aneurysm, without rupture (principal)
CPT/HCPCS: 36415; 74174; 82565; 84520; Q9967

== ENCOUNTER → 2021-09-10 13:27 | Outpatient (BNVA) | payer MEDICARE, SELFPAY | PROVIDERS: PCP Pediatrics; Visit Provider Internal Medicine Cardiovascular Disease | DX: I77.810 Thoracic aortic ectasia (principal); Z79.899 Other long term (current) drug therapy | CPT/HCPCS: 99212 ==

== ENCOUNTER → 2021-09-13 09:46 | Outpatient (BNVA) | payer MEDICARE, SELFPAY | PROVIDERS: PCP Pediatrics; Visit Provider Surgery Vascular Surgery | DX: I71.4 Abdominal aortic aneurysm, without rupture (principal) | CPT/HCPCS: 99212 ==

== ENCOUNTER → 2021-12-20 11:44 | Outpatient (BNVA) | payer MEDICARE, SELFPAY | PROVIDERS: PCP Pediatrics; Visit Provider Internal Medicine Cardiovascular Disease | DX: Z01.810 Encounter for preprocedural cardiovascular examination (principal); R42 Dizziness and giddiness; I77.810 Thoracic aortic ectasia | CPT/HCPCS: 93005; 99212 ==

== ENCOUNTER → 2022-01-01 15:05 | Outpatient (REF) | payer MEDICARE, SELFPAY ==
--- NOTE | 2022-01-01 15:09 | HM_ITS ---
Conclusion: 1. Patient was monitored for total period of 13 days and 20 hours 2. Baseline rhythm was normal sinus rhythm with average heart of 77 beats per minute 3. No significant pauses or bradycardia noted 4. Total of 41 supraventricular tachycardia episodes with longest lasting 47 beats and the fastest at 192 beats per minute 5. Total of 32,939 PACs accounting for 2.11% of total beats accounting for frequent PACs 6. No patient reported events MTDD
== END ==
LOC: HO.CARD 15:05
PROVIDERS: Visit Provider Internal Medicine Cardiovascular Disease
DX: R42 Dizziness and giddiness (principal)
CPT/HCPCS: 93246

== ENCOUNTER 2022-02-28 13:38 | Outpatient (REF) | payer MEDICARE, SELFPAY ==
[2022-02-28 14:23] LABS: Blood Urea Nitrogen 16 mg/dL (9-16); Estimated Glomerular Filt Rate > 60
== END 2022-02-28 13:39 | disposition home or self-care (01) ==
LOC: HO.LAB 13:38
PROVIDERS: Visit Provider Surgery Vascular Surgery
DX: I71.4 Abdominal aortic aneurysm, without rupture (principal)
CPT/HCPCS: 36415; 82565; 84520

== ENCOUNTER 2022-03-07 10:02 | Outpatient (REF) | payer MEDICARE, SELFPAY ==
--- NOTE | ~2022-03-07 | CT_ITS ---
STUDY PERFORMED: CTA ABDOMEN AND PELVIS WITHOUT AND WITH CONTRAST HISTORY: Abdominal aortic aneurysm, status post endograft repair DESCRIPTION: Routine abdomen and pelvis CTA protocol with contrast was performed. 80 mL of Omnipaque 350 was administered. 3D POSTPROCESSING: Multiple 3-D angiographic images were processed from the initial data set by the [facility] under concurrent physician supervision. DOSE LOWERING TECHNIQUES: This CT examination was performed using dose optimization techniques as appropriate, variously including the following: - Automated exposure control - Adjustment of mA and/or kV according to patient size (this includes techniques or standardized protocols for targeted exams where dose is matched to indication/reason for exam; i.e. extremities or head) - Use of iterative reconstruction technique DLP: 301 mGycm. COMPARISON: CTA from 09/05/2021 FINDINGS: VASCULAR: ABDOMINAL AORTA: There is a fusiform infrarenal abdominal aortic aneurysm with abdominal aortic to bilateral common iliac artery a bifurcated stent graft. Stent graft is widely patent and stable in position. Aneurysm measures 4.7 x 4.2 cm, previously measuring 4.9 x 4.6 cm. No evidence of endoleak RIGHT LOWER EXTREMITY: The common iliac, external iliac and internal iliac arteries are patent without stenosis. Just distal to the iliac limb stent, there is a focal saccular aneurysm versus focal dissection which is stable compared to the prior exam. This has a diameter of approximately 4 mm and length of 1.1 cm LEFT LOWER EXTREMITY: The common iliac, external iliac and internal iliac arteries are patent without stenosis or aneurysm. CELIOMESENTERIC ARTERIES: Celiac artery and superior mesenteric artery are patent. RENAL ARTERIES: Patent. NONVASCULAR: Lung Bases: The visualized lung bases are unremarkable. Liver, Gallbladder and Biliary Tree: The liver is normal in size, shape, and attenuation. No focal hepatic lesion or biliary ductal dilatation is present. Status post cholecystectomy Pancreas: Unremarkable. Spleen: Unremarkable. Adrenal Glands: Unremarkable. Kidneys and Ureters: The kidneys are normal in size, shape, and attenuation. No hydronephrosis, hydroureter, or calculi seen. No perinephric stranding. There is a simple cyst in the upper pole the left kidney measuring 3.1 x 3.1 cm which is stable. Stable bilateral parapelvic cysts are seen. No hydronephrosis Bladder: Unremarkable. Gastrointestinal Tract: The small bowel are unremarkable. Diverticula seen within the sigmoid colon without evidence of acute diverticulitis The appendix is unremarkable. Abdominal Wall: No significant hernia is appreciated. Lymph Nodes: Normal. Pelvic Viscera: Weinstein is enlarged. Osseous Structures: Degenerative spine. Stable chronic compression fracture of L2 CT/CT angio abdomen pelvis IMPRESSION: Infrarenal abdominal aortic aneurysm, status post endograft repair. Aneurysm sac has slightly decreased in size currently measuring 4.7 cm. No evidence of endoleak Small saccular aneurysm versus focal dissection at the inferior margin of the right common iliac artery stent graft limb which is stable in size
[2022-03-07] MEDS: iohexoL 350 MG/ML 100 ML INFUS..BTL IV (10:46)
== END 2022-03-07 10:03 | disposition home or self-care (01) ==
LOC: HO.CT 10:02
PROVIDERS: Visit Provider Surgery Vascular Surgery
DX: I71.4 Abdominal aortic aneurysm, without rupture (principal); Z98.890 Other specified postprocedural states
CPT/HCPCS: 74174; Q9967

== ENCOUNTER → 2022-03-21 14:19 | Outpatient (BNVA) | payer MEDICARE, SELFPAY | PROVIDERS: PCP Pediatrics; Visit Provider Surgery Vascular Surgery | DX: I71.4 Abdominal aortic aneurysm, without rupture (principal) | CPT/HCPCS: 99212 ==

== ENCOUNTER 2022-03-25 11:08 | Outpatient (REF) | payer MEDICARE, SELFPAY ==
[2022-03-25 12:45] LABS: Magnesium 2.2 mg/dL (1.6-2.6); Potassium 4.5 mmol/L (3.3-5.1)
== END 2022-03-25 11:09 | disposition home or self-care (01) ==
LOC: HO.LAB 11:08
PROVIDERS: PCP Pediatrics; Visit Provider Internal Medicine Cardiovascular Disease
DX: I49.1 Atrial premature depolarization (principal); R42 Dizziness and giddiness
CPT/HCPCS: 36415; 83735; 84132; 99212

== ENCOUNTER → 2022-08-27 10:07 | Outpatient (REF) | payer MEDICARE, SELFPAY ==
--- NOTE | 2022-08-27 10:06 | CA_ITS ---
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 The visually estimated ejection fraction is between 55-60%. - There is mild aortic valve stenosis. - Mobile mass noted on the tricuspid valve. Vegetation cannot be ruled out. - There is mild dilatation of the ascending aorta measuring 3.80 cm and mild dilatation of the aortic arch measuring 4.20 cm. Findings Left Ventricle Normal left ventricular size and systolic function. The visually estimated ejection fraction is between 55-60%. There is no evidence of regional wall motion abnormalities. Abnormal diastolic function is noted. Spectral Doppler is indicative of an impaired relaxation filling pattern. E/E prime ratio is between 8 and 15 consistent with indeterminate filling pressures. There is moderate septal asymmetric hypertrophy. Right Ventricle Mildly increased right ventricular cavity size. There is normal right ventricular systolic function. Atria The left atrium is normal in size. The right atrium was not well visualized. Aortic Valve There is a normal trileaflet aortic valve. There is moderate calcification of the aortic valve. There is mild aortic valve stenosis. The peak aortic velocity is 2.11 m/s. The aortic valve area is 1.53 cm2. There is trace (trivial) aortic valve regurgitation. Mitral Valve The mitral valve appears normal. There is trace mitral valve regurgitation. There is no mitral valve stenosis. Pulmonic Valve The pulmonic valve is likely normal. Tricuspid Valve There is trace tricuspid valve regurgitation. Tricuspid regurgitation envelope is inadequate for calculation of right ventricular systolic pressure. Normal right atrial pressure. Mobile mass noted on the tricuspid valve. Vegetation cannot be ruled out. Great Vessels There is mild dilatation of the ascending aorta measuring 3.80 cm and mild dilatation of the aortic arch measuring 4.20 cm. The visualized portions of the pulmonary artery and branches are normal. Venous The inferior vena cava is normal in size and collapses greater than 50% with inspiration. Pericardium/Pleural There is no evidence of pericardial effusion. Prior Study Comparison Changes noted compared to prior study dated: 05/22/2021. Mobile mass seen on tricuspid valve in some views. Cannot rule vegetation. Measurements 2D Linear Measurements IVSd: 1.35 0.6-0.9/0.6-1.0 cm LVIDd: 3.80 3.9-5.3/4.2-5.9 cm LVIDd Index: 2.28 2.4-3.2/2.2-3.1 cm/m2 LVIDs: 2.67 2.0-3.6 cm LVPWd: 0.96 0.7-1.1 cm LA Diam: 2.80 2.7-3.8/3.0-4.0 cm LAIDs Index: 1.68 1.5-2.3 cm/m2 LV Mass: 179.92 67-162/88-224 g LV Mass Index: 107.74 43-95/49-115 g/m2 LVOT Diam: 2.20 3.0+(-)1.3 cm 2D Systolic Function EF 4C: 57.00 >55% EF 2C: 50.50 >55% EF BiP: 54.20 >55% Mitral Valve MV Pk E: 0.37 MV PK A: 0.72 MV Decel Time: 241.00 E/A: 0.50 E'Lateral: 4.90 E'Medial: 3.59 E/E' Med: 10.40 E/E' Lat: 7.60 PHT: 71.00 MVA PHT: 3.10 Decel [place]: 1.55 Aortic Valve AoV Pk Ángel: 2.11 AoV Mn Á[place]: 1.54 AoV VTI: 0.48 AoV Pk Grad: 18.00 Aov Mn Grad: 10.00 SUMAYA Cont.VTI: 1.53 AI Pk [place]: 4.21 AI [place]: 2.63 LVOT LVOT Pk Ángel: 0.78 LVOT Mn Á[place]: 0.52 LVOT VTI: 0.19 LVOT Pk Grad: 2.00 LVOT Mn Grad: 1.00 LVOT Diam: 2.20 LVOT Area: 3.80 Diastolic Function MV Pk E: 0.37 MV Pk A: 0.72 E/A: 0.50 E'Medial: 3.59 E/E' Med: 10.40 E' Laterial: 4.90 E/E' Lat: 7.60 Right Ventricle TAPSE (mm): 22.30 TVS' Ángel: 10.40 Tricuspid Valve TR Pk Ángel: 1.81 TR Pk Grad: 13.00 Great Vessels Aorta Sinus of Valsalva: 3.50 2.0-3.[address] [place]: 2.73 1.7-3.4 cm Ao Asc: 3.80 2.1-3.4 cm Ao Arch: 4.20 Updated in Other Vendor System with Status of Final Edwin Burnette MD electronically signed on 08/29/2022 10:43:38 PM with status of Final
== END ==
LOC: HO.CARD 10:07
PROVIDERS: Visit Provider Internal Medicine Cardiovascular Disease
DX: I77.810 Thoracic aortic ectasia (principal)
CPT/HCPCS: 93306

== ENCOUNTER 2022-08-30 12:40 | Outpatient (REF) | payer MEDICARE, SELFPAY | END 2022-08-30 12:41 | disposition home or self-care (01) | LOC: HO.LAB 12:40 | PROVIDERS: PCP Pediatrics; Visit Provider Internal Medicine Cardiovascular Disease | DX: I33.0 Acute and subacute infective endocarditis (principal) | CPT/HCPCS: 87040 ==

== ENCOUNTER 2022-10-10 11:50 | Outpatient (REF) | payer MEDICARE, SELFPAY ==
[2022-10-10 14:04] LABS: Iron 83 mcg/dL (45-160); Percent Iron Saturation 33 % (15-50); Total Iron Binding Capacity 255 mcg/dL (228-428); Unsaturated Iron Binding 172 ug/dL
[2022-10-10 14:17] LABS: Ferritin 196 ng/mL (20-250)
== END 2022-10-10 11:51 | disposition home or self-care (01) ==
LOC: HO.LAB 11:50
PROVIDERS: PCP Pediatrics; Visit Provider Internal Medicine Cardiovascular Disease
DX: G25.81 Restless legs syndrome (principal); I49.1 Atrial premature depolarization; R42 Dizziness and giddiness; Z79.899 Other long term (current) drug therapy
CPT/HCPCS: 36415; 82728; 83540; 99212

== ENCOUNTER 2022-11-10 15:36 | Emergency (ER) | payer MEDICARE, SELFPAY ==
--- NOTE | 2022-11-10 | ECG_ITS ---
Test Reason : DIZNESS Blood Pressure : / mmHG Vent. Rate : 069 BPM Atrial Rate : 069 BPM P-R Int : 168 ms QRS Dur : 086 ms QT Int : 444 ms P-R-T Axes : 019 -33 024 degrees QTc Int : 475 ms Normal sinus rhythm Left axis deviation Abnormal ECG No previous ECGs available Referred By: Generic ED Physician Electronically Signed By:PAUL CHARLTON MD
--- NOTE | ~2022-11-10 | CT_ITS ---
EXAMINATION: CT ANGIOGRAM OF THE HEAD CT ANGIOGRAM OF THE NECK CLINICAL INFORMATION: Dizziness. COMPARISON: CT scan of the head also obtained 11/10/2022. TECHNIQUE: Test bolus series followed by intravenous administration 70 mL of Omnipaque 350. Helical imaging was performed in the axial plane from the mediastinum to the skull vertex. The degree of stenosis is based off NASCET criteria. The data was processed at the extractions technologist workstation for generation of MIP images. Three-dimensional volume rendered reformatted images were also generated at an offline 3-D workstation. This CT examination was performed using dose optimization techniques as appropriate, variously including the following: *Automated exposure control *Adjustment of mA and/or kV according to patient size (this includes techniques or standardized protocols for targeted exams where dose is matched to indication/reason for exam; i.e. extremities or head) *Use of iterative reconstruction technique DLP: 1475 mGy-cm. FINDINGS: CT Head: There is no evidence of acute intracranial hemorrhage or territorial infarction. No abnormal mass-effect or midline shift is seen. Colon to white matter differentiation is well preserved. No extra-axial fluid collections are identified. There is no abnormal enhancement. There is commensurate prominence of the ventricles and sulci consistent with diffuse volume loss. There is also mild prominence of the extra-axial CSF around the cerebral convexities, which may be consistent with cortical volume loss. There are areas of low-attenuation in the periventricular and subcortical white matter, consistent with chronic microvascular ischemic changes. There is a chronic lacunar infarct in the left basal ganglia. There are no acute osseous or soft tissue abnormalities. There are extensive atheromatous calcifications of the bilateral cavernous internal carotid arteries. The mastoid air cells and visualized portions of the paranasal sinuses are well-aerated. CTA Neck: The study does not fully include the aortic arch, but there appear to be 3 vessels arising from the arch. There are atheromatous calcifications at the origins of the subclavian arteries bilaterally, but the vessels are patent. The common carotid arteries are widely patent. There are moderate atheromatous calcifications at the carotid bifurcations bilaterally, but there is no flow-limiting stenosis. The cervical internal carotid arteries are widely patent. There are mild atheromatous calcifications at the origins of the vertebral arteries bilaterally. The V2 segments of the vertebral arteries are widely patent. The left vertebral artery is minimally dominant. The V3 and the intradural vertebral arteries are patent bilaterally. Nonvascular: There are emphysematous changes in the upper lung martinez bilaterally. The thyroid gland appears normal. There is no cervical lymphadenopathy. There are moderate to severe multilevel spondylitic changes in the upper thoracic and in the cervical spine. Bone mineralization is diffusely decreased. There is multilevel facet arthropathy. CTA Head: There are atheromatous calcifications in the cavernous internal carotid arteries bilaterally, but the vessels are patent. There are also atheromatous calcifications of the supraclinoid internal carotid arteries bilaterally, but the carotid termini appear normal bilaterally. The middle and anterior cerebral arteries bilaterally demonstrate normal caliber with no evidence of focal stenosis, aneurysm or vascular malformation. There is normal arborization of the middle cerebral artery branches. The anterior communicating artery is normal. Intracranially, the left vertebral artery is slightly dominant. The basilar artery is patent. The basilar tip is high riding, but has normal caliber. The posterior cerebral arteries are patent bilaterally. The venous sinuses opacify normally. CT/CT angio head neck IMPRESSION: CT head and neck: 1. There are no acute bleeds or territorial infarcts. There are no masses or areas of abnormal enhancement. 2. There is diffuse and cortical volume loss. 3. There are chronic microvascular ischemic changes., And there is a left basal ganglia chronic lacunar infarct. CTA head and neck: 1. There are atheromatous calcifications at the carotid bifurcations bilaterally, but there is no flow-limiting stenosis. 2. Intracranially there are no focal stenoses, aneurysms or vascular malformations. 3. The basilar artery is high riding, but has normal caliber and the posterior cerebral arteries are patent bilaterally.
--- NOTE | ~2022-11-10 | CT_ITS ---
EXAMINATION: CT HEAD WITHOUT CONTRAST CLINICAL INFORMATION: Dizziness. COMPARISON: None available. TECHNIQUE: Contiguous axial imaging was performed from the skull base to vertex without intravenous administration of contrast. This CT examination was performed using dose optimization techniques as appropriate, variously including the following: *Automated exposure control *Adjustment of mA and/or kV according to patient size (this includes techniques or standardized protocols for targeted exams where dose is matched to indication/reason for exam; i.e. extremities or head) *Use of iterative reconstruction technique DLP: 833.5 mGy-cm for the head CT and 23.1 mGy-cm for topograms. FINDINGS: No intracranial hemorrhage, extra-axial fluid collection, focal mass effect or midline shift. The braxton-white matter differentiation is maintained. No evidence of an acute major vascular territory infarction. There is atherosclerotic calcification of cavernous carotid arteries. Old lacunar infarcts of the left gangliocapsular region/corpus striatum. Mild patchy hypoattenuation within supratentorial white matter is compatible with sequela of chronic microangiopathy. Moderate parenchymal volume loss with commensurate prominence of ventricles and sulci. No acute findings within the posterior fossa. The cerebellar tonsils are in normal position. The visualized paranasal sinuses and mastoid air cells are well aerated. Temporomandibular joints are unremarkable. CT/CT head/brain wo IV con IMPRESSION: * No intracranial mass, hemorrhage or other acute intracranial pathology. * Chronic small vessel ischemic changes of the supratentorial white matter and old lacunar infarcts of the left gangliocapsular region.
[2022-11-10 15:48] VITALS: BP 119/77; PULSE 69; RESP 16; TEMP 36.6; O2SAT 96; BMI 23.3
[2022-11-10 16:27] LABS: MANUAL DIFF FLAG NO
[2022-11-10 16:33] LABS: Basophils Percent Auto 0.6 % (0-2); Eosinophils Absolute Auto 0.1 X10*3/uL (0.0-0.4); Eosinophils Percent Auto 0.8 % (0-4); Hematocrit 45.8 % (42.0-52.0); Hemoglobin 15.6 g/dl (14.0-18.0); Imm Gran Abs Auto 0.01 X10*3/uL (0.00-0.03); Imm Gran Pct Auto 0.2 % (0.0-0.4); Lymphocytes Absolute Auto 0.8 X10*3/uL (1.2-4.9); Lymphocytes Percent Auto 11.7 % (20-40); Mean Corpuscular HGB Conc 34.1 g/dl (31.0-36.0); Mean Corpuscular Hemoglobin 31.2 pg (27.0-33.0); Mean Corpuscular Volume 91.6 fL (80.0-98.0); Mean Platelet Volume 9.3 fL (9.4-12.4); Monocytes Absolute Auto 0.4 X10*3/uL (0.1-1.2); Monocytes Percent Auto 5.9 % (2-11); Neutrophils Absolute Auto 5.3 x10*3/uL (2.0-8.3); Neutrophils Percent Auto 80.8 % (45-73); Platelet Count 143 X10*3/uL (160-400); Red Cell Distribution Width 12.3 % (11.0-16.0); White Blood Count 6.6 X10*3/uL (4.8-10.8)
[2022-11-10 16:43] LABS: Alanine Aminotransferase 17 U/L (0-40); Albumin Level 4.3 g/dL (3.5-5.0); Alkaline Phosphatase 71 U/L (39-117); Anion Gap 13 (12-20); Aspartate Amino Transferase 22 U/L (5-37); Bilirubin Total 0.9 mg/dL (0.0-1.0); Blood Urea Nitrogen 20 mg/dL (9-16); Calcium 9.5 mg/dL (8.4-10.2); Carbon Dioxide 25 mmol/L (22-29); Chloride 108 mmol/L (96-108); Creatinine Clr Calc Pharmacy 49.2; Estimated Glomerular Filt Rate > 60; Glucose Random 133 mg/dL (60-115); Sodium 142 mmol/L (135-145); Total Protein 6.8 g/dL (6.5-8.0)
[2022-11-10 17:15] VITALS: BP 122/68; PULSE 64; RESP 14; TEMP 36.9; O2SAT 97
[2022-11-10] MEDS: 0.9 % Sodium Chloride 500 ML 999 ML IV (17:43)
[2022-11-10] MEDS: iohexoL 350 MG/ML 100 ML INFUS..BTL IV (18:51)
--- NOTE | 2022-11-10 19:18 | ED_ITS ---
HPI - Dizziness General Chief Complaint: Dizziness Stated Complaint: nausea/vomiting/dizziness Time Seen by Provider: 11/10/22 17:13 Source: patient and family (Daughter) Mode of arrival: ambulatory History of Present Illness HPI Narrative: 87-year-old male with a previous history of vertigo presents with being awakened twice during the night feeling as though he had been thrown from a [place] . Patient states that he felt like this 8 years ago when he had his previous episode of vertigo. He otherwise denies any shortness of breath, chest pain/palpitations but stated on the 1st episode he was feeling a little sweaty. Patient denies any nausea, vomiting, abdominal pain or urinary symptoms. Patient also denies any further neurologic deficits such as speech/hearing and denies any tingling or weakness in any of his extremities. Patient states that he was in his usual state of health prior to this occurrence and denies any adjustments in his medications. Related Data Home Medications Medication Instructions Recorded Confirmed clonazepam 1 mg tablet 1 mg PO BEDTIME PRN Insomnia 05/08/21 10/10/22 omeprazole 20 mg capsule,delayed 20 mg PO DAILY 05/08/21 10/10/22 release rosuvastatin 40 mg tablet 40 mg PO DAILY 05/08/21 10/10/22 albuterol sulfate 90 mcg/actuation 2 puff inhalation Q4-6H PRN 05/15/21 10/10/22 aerosol inhaler (ProAir HFA) Shortness Of Breath aspirin 81 mg tablet 81 mg PO DAILY 05/16/21 10/10/22 cholecalciferol (vitamin D3) 50 50 mcg PO DAILY 05/16/21 10/10/22 mcg (2,000 unit) capsule (Vitamin D3) multivitamin 1 tab PO DAILY 05/16/21 10/10/22 omega-3 fatty acids-fish oil 684 1 cap PO DAILY 05/16/21 10/10/22 mg-1,200 mg capsule,delayed release fluticasone propionate 0.05 % 1 appl topical DAILY PRN 10/10/22 10/10/22 topical cream Previous Rx's Medication Instructions Recorded meclizine 12.5 mg tablet 12.5 mg PO TID PRN dizziness #7 11/10/22 tabs Allergies Allergy/AdvReac Type Severity Reaction Status Date / Time No Known Allergies Allergy Verified 11/10/22 15:48 Review of Systems Review of Systems: Pertinent positives and negatives as stated in HPI [facility] Past Medical History Source: nursing notes reviewed Medical History Asthma COVID-19 vaccine series completed Exercises daily GERD (gastroesophageal reflux disease) Hypercholesteremia Peripheral artery disease Restless leg syndrome Small bowel obstruction Surgical History H/O colonoscopy H/O hernia repair History of cholecystectomy History of endovascular stent graft for abdominal aortic aneurysm (AAA) (05/28/21) History of esophagogastroduodenoscopy (EGD) Hx of exploratory laparotomy Family History Family History Mother Ovarian cancer Breast cancer Father Stroke Sister Lung cancer Brother Lung cancer Sister Arthritis Social History Social History Are you a primary reproductive healthcare assistant to a significant other at home: No Do you presently have visiting nurse or other home services: No Alcohol intake: never Patient Tobacco Use Status: Never used Tobacco Smoked in Last 30 Days: No Use of substances other than those prescribed or required for medical reasons: No Advance Directives: Yes Advance Directives on File: Yes Advance Directives Date on File: 05/30/21 service: No Current occupational status: retired Physical Exam Vital Signs: Vital Signs: Last Vital Signs Temp 98.0 F 11/10/22 21:14 Pulse 74 11/10/22 21:14 Resp 16 11/10/22 21:14 BP 129/60 11/10/22 21:14 Pulse Ox 96 11/10/22 21:14 O2 Del Method Room Air 11/10/22 21:14 BMI result Body Mass Index 23.3 VITAL SIGNS: Reviewed. GENERAL: Well developed, well nourished, in no acute distress. HEAD: Normocephalic/atraumatic EYES: PERRLA, EOMI EARS: Ext canals without abnormality, TMs non-bulging and non-erythematous NOSE: Nares patent bilateral OROPHARYNX: no oral lesions noted, posterior pharynx clear and non-erythematous without noted tonsillar enlargement/erythema/exudates NECK: Supple, no adenopathy LUNGS: Normal breath sounds. No adventitious sounds or accessory muscle use. SpO2<97> CARDIOVASCULAR: Regular rate and rhythm without noted murmurs, no JVD or lower extremity edema. ABDOMEN: Soft, non-tender, non-distended with bowel sounds. MUSCULOSKELETAL: No tenderness, deformities, or effusions noted on gross inspection. EXTREMITIES: No cyanosis, clubbing or edema. SKIN: Inspection of the skin reveals no rashes NEUROLOGIC: Alert and oriented x 4. Strength and sensation to light touch were grossly intact x 4, no facial asymmetry, no dizziness on lifting of head, past pointing intact, heel to bocanegra intact, cranial nerves 2-12 are grossly intact Medications Administered Discontinued Medications Generic Name Dose Route Start Last Admin Trade Name Freq PRN Reason Stop Dose Admin Sodium Chloride 500 mls @ 999 mls/hr 11/10/22 17:15 11/10/22 17:43 Ns IV 11/10/22 17:45 999 mls/hr .Q31M [place] Administration Iohexol 100 ml 11/10/22 18:51 11/10/22 18:51 Iohexol 350 Mg/Ml 100 Ml Infus..Btl IV 11/10/22 18:52 70 ml ONCE ONE Administration Meclizine HCl 12.5 mg 11/10/22 20:53 11/10/22 21:12 Meclizine Hcl 12.5 Mg Tablet PO 11/10/22 20:54 12.5 mg ONCE ONE Administration Medical Decision Making Medical Decision Making MDM Narrative: 87-year-old male with presentation of dizziness/vertigo with low clinical suspicion for infectious etiology, will rehydrate and obtain basic labs, lower clinical suspicion for posterior circulation abnormalities but will proceed with CT and CT angio of the head neck. I reviewed all investigations to include imaging studies and re-evaluated the patient after administrating meclizine. There are no acute findings to better explain patient's symptoms and the meclizine completely resolved all of the patient's symptoms. He is otherwise hemodynamically stable for discharge to home he was strongly encouraged to follow-up with primary care provider by calling the office in the morning. Differential Diagnosis Please see the discussion above Lab Data Please see the discussion above 11/10/22 16:26 11/10/22 16:26 Labs: Lab Results 11/10/22 11/10/22 11/10/22 Range/Units 16:26 16:26 16:26 WBC 6.6 (4.8-10.8) X10*3/uL RBC 5.00 D (4.60-5.80) X10*6/uL Hgb 15.6 D (14.0-18.0) g/dl Hct 45.8 D (42.0-52.0) % MCV 91.6 (80.0-98.0) fL MCH 31.2 (27.0-33.0) pg MCHC 34.1 (31.0-36.0) g/dl RDW 12.3 (11.0-16.0) % Plt Count 143 L (160-400) X10*3/uL MPV 9.3 L (9.4-12.4) fL Immature Gran % (Auto) 0.2 (0.0-0.4) % Neut % (Auto) 80.8 H (45-73) % Lymph % (Auto) 11.7 L (20-40) % Crisp % (Auto) 5.9 (2-11) % Eos % (Auto) 0.8 (0-4) % Baso % (Auto) 0.6 (0-2) % Lymph # (Auto) 0.8 L (1.2-4.9) X10*3/uL Crisp # (Auto) 0.4 (0.1-1.2) X10*3/uL Eos # (Auto) 0.1 (0.0-0.4) X10*3/uL Baso # (Auto) 0.0 (0.0-0.2) X10*3/uL Abs Immat Gran (auto) 0.01 (0.00-0.03) X10*3/uL Absolute Neuts (auto) 5.3 (2.0-8.3) x10*3/uL Absolute Nucleated RBC 0.000 (0.0-0.012) X10*3/uL Nucleated RBC % (auto) 0.0 (0.0-0.2) /100WBC Sodium 142 (135-145) mmol/L Potassium 4.0 (3.3-5.1) mmol/L Chloride 108 (96-108) mmol/L Carbon Dioxide 25 (22-29) mmol/L Anion Gap 13 (12-20) BUN 20 H (9-16) mg/dL Creatinine 0.92 (0.5-1.4) mg/dL Estim Creat Clear Calc 49.2 Estimated GFR > 60 Random Glucose 133 H (60-115) mg/dL Calcium 9.5 D (8.4-10.2) mg/dL Total Bilirubin 0.9 (0.0-1.0) mg/dL AST 22 (5-37) U/L ALT 17 (0-40) U/L Alkaline Phosphatase 71 (39-117) U/L Total Protein 6.8 (6.5-8.0) g/dL Albumin 4.3 (3.5-5.0) g/dL Hold Green Top See Note Urine Color Urine Appearance Urine pH (5.0-9.0) Ur Specific Easley (1.005-1.025) Urine Protein (Neg-Trace) mg/dL Urine Glucose (UA) (Negative) mg/dL Urine Ketones (Negative) mg/dL Urine Blood (Negative) Urine Nitrite (Negative) Ur Leukocyte Esterase (Negative) 11/10/22 Range/Units 19:33 WBC (4.8-10.8) X10*3/uL RBC (4.60-5.80) X10*6/uL Hgb (14.0-18.0) g/dl Hct (42.0-52.0) % MCV (80.0-98.0) fL MCH (27.0-33.0) pg MCHC (31.0-36.0) g/dl RDW (11.0-16.0) % Plt Count (160-400) X10*3/uL MPV (9.4-12.4) fL Immature Gran % (Auto) (0.0-0.4) % Neut % (Auto) (45-73) % Lymph % (Auto) (20-40) % Crisp % (Auto) (2-11) % Eos % (Auto) (0-4) % Baso % (Auto) (0-2) % Lymph # (Auto) (1.2-4.9) X10*3/uL Crisp # (Auto) (0.1-1.2) X10*3/uL Eos # (Auto) (0.0-0.4) X10*3/uL Baso # (Auto) (0.0-0.2) X10*3/uL Abs Immat Gran (auto) (0.00-0.03) X10*3/uL Absolute Neuts (auto) (2.0-8.3) x10*3/uL Absolute Nucleated RBC (0.0-0.012) X10*3/uL Nucleated RBC % (auto) (0.0-0.2) /100WBC Sodium (135-145) mmol/L Potassium (3.3-5.1) mmol/L Chloride (96-108) mmol/L Carbon Dioxide (22-29) mmol/L Anion Gap (12-20) BUN (9-16) mg/dL Creatinine (0.5-1.4) mg/dL Estim Creat Clear Calc Estimated GFR Random Glucose (60-115) mg/dL Calcium (8.4-10.2) mg/dL Total Bilirubin (0.0-1.0) mg/dL AST (5-37) U/L ALT (0-40) U/L Alkaline Phosphatase (39-117) U/L Total Protein (6.5-8.0) g/dL Albumin (3.5-5.0) g/dL Hold Green Top Urine Color Yellow Urine Appearance Clear Urine pH 7.5 (5.0-9.0) Ur Specific Easley 1.025 (1.005-1.025) Urine Protein Negative (Neg-Trace) mg/dL Urine Glucose (UA) Negative (Negative) mg/dL Urine Ketones Negative (Negative) mg/dL Urine Blood Negative (Negative) Urine Nitrite Negative (Negative) Ur Leukocyte Esterase Negative (Negative) Independent Interpretation I performed an independent interpretation of an: EKG Interpretation: Normal sinus rhythm, HR-69, GA/QRS/QTC is within normal limits. Radiology Impression Radiologist Impression: My interpretation is in agreement with radiology's impression of the imaging studies. External Record Review External record reviewed: Outpatient record and Prior outpatient labs Discharge Plan Discharge Clinical Impression: Vertigo Patient Disposition: Home, Self-Care Instructions: Vertigo (ED) Additional Instructions: 1. Resume all home medications as prescribed. 2. Take the medication for your vertigo as needed. Do not hesitate to return to the emergency room should this be accompanied by any speech changes, facial asymmetry, difficulty with strength in any extremities. 3. Recommend that you follow-up with your primary care provider by calling the office in the morning. Prescriptions: New meclizine 12.5 mg tablet 12.5 mg PO TID PRN (Reason: dizziness) Qty: 7 0RF No Action albuterol sulfate [ProAir HFA] 90 mcg/actuation Hfa Aerosol Inhaler 2 puff INHALATION Q4-6H PRN (Reason: Shortness Of Breath) multivitamin Tablet 1 tab PO DAILY aspirin 81 mg Tablet 81 mg PO DAILY omega-3 fatty acids-fish oil 684-1,200 mg Capsule,Delayed Release(Dr/Ec) 1 cap PO DAILY cholecalciferol (vitamin D3) [Vitamin D3] 50 mcg (2,000 unit) Capsule 50 mcg PO DAILY rosuvastatin 40 mg tablet 40 mg PO DAILY clonazepam 1 mg tablet 1 mg PO BEDTIME PRN (Reason: Insomnia) omeprazole 20 mg capsule,delayed release(DR/EC) 20 mg PO DAILY fluticasone propionate 0.05 % cream 1 appl topical DAILY PRN Referrals: Luis Alberto Davey MD [Primary Care Provider] -
[2022-11-10 19:40] LABS: Appearance Urine Clear; Color Urine Yellow; Glucose Urine UA Negative (Negative); Leukocyte Esterase Urine Negative (Negative); Nitrite Urine Negative (Negative); PH 7.5 (5.0-9.0); Specific Gravity - Urine 1.025 (1.005-1.025); Urine Blood Negative (Negative); Urine Ketones Negative (Negative); Urine Protein Negative (Neg-Trace)
[2022-11-10] MEDS: Meclizine HCl 12.5 MG TABLET PO (21:12)
[2022-11-10 21:14] VITALS: BP 129/60; PULSE 74; RESP 16; TEMP 36.7; O2SAT 96
== END 2022-11-10 22:40 | disposition home or self-care (01) ==
PROVIDERS: Emergency Provider Student in an Organized Health Care Education/Training Program; PCP Pediatrics
DX: R42 Dizziness and giddiness (principal); R51.9 Headache, unspecified; R94.31 Abnormal electrocardiogram [ECG] [EKG]; Z79.899 Other long term (current) drug therapy
CPT/HCPCS: 36415; 70450; 70496; 70498; 80053; 81003; 85025; 93005; 96360; 99284; 99285; Q9967

== ENCOUNTER 2023-03-21 10:07 | Outpatient (REF) | payer MEDICARE, SELFPAY ==
--- NOTE | ~2023-03-21 | CT_ITS ---
EXAMINATION: CT ANGIOGRAPHY ABDOMEN AND PELVIS WITHOUT AND WITH CONTRAST CLINICAL INFORMATION: Abdominal aortic aneurysm COMPARISON: CTA abdomen/pelvis 03/07/2022 TECHNIQUE: Initial noncontrast localizing railroad baggage porter images were obtained. A timing bolus at the level of the celiac artery was calculated. Subsequently, arterial phase multidetector volumetric imaging was performed through the abdomen and pelvis following the administration of 80 mL Omnipaque 350 intravenous contrast. No contrast reaction reported. Sagittal and coronal reformatted images were obtained on the technologist workstation. After extensive post-processing on a dedicated 3-D workstation, 3-D reformatted images were uploaded to PACS and reviewed as well. This CT examination was performed using dose optimization techniques as appropriate, variously including the following: *Automated exposure control *Adjustment of mA and/or kV according to patient size (this includes techniques or standardized protocols for targeted exams where dose is matched to indication/reason for exam; i.e. extremities or head) *Use of iterative reconstruction technique DLP: 316 mGy-cm FINDINGS: VASCULAR: Aortoiliac stent graft with minimal amount of intraluminal thrombus anteriorly along the superior segment. No evidence of endoleak on this single phase study. 1. Distal Thoracic Aorta: 22 mm 2. Supraceliac Abdominal Aorta: 23 mm 3. Infrarenal Abdominal Aorta: 47 x 41 mm 4. Iliac Arteries: The common, external and internal iliac arteries are patent. Proximal femoral vessels are patent. 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 5. Mesenteric Arteries: Celiac artery is patent. Superior mesenteric artery patent. Inferior mesenteric artery patent. 6. Renal arteries: Single renal arteries bilaterally. Renal arteries are patent and without stenosis or other vascular anomaly. NONVASCULAR: Lung Bases: The visualized lung bases are clear. Liver: Homogeneous in attenuation. Normal in size. Gallbladder: Noninflamed. Biliary System: No intrahepatic or extrahepatic biliary dilation. Pancreas: Homogeneous in attenuation. Spleen: Normal in size. Genitourinary: Bilateral kidneys demonstrate symmetric enhancement. Left upper pole simple renal cysts 3.3 cm; no follow up needed. No perinephric fluid collection. No renal calculi. No hydroureteronephrosis. Adrenal Glands: Unremarkable. Reproductive: Prostamegaly Gastrointestinal: The visualized alimentary tract is normal in course. No evidence of obstruction. 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 Appendix: The appendix is not visualized; however, no pericecal inflammatory changes are seen in the right lower quadrant. Peritoneum: No pneumoperitoneum. No intra-abdominal fluid collection. Lymph Nodes: No pathologically enlarged abdominal or pelvic lymph nodes. Soft Tissues/Musculoskeletal: Degenerative changes at L4-L5 with mild grade 1 retrolisthesis, resulting in moderate bilateral neural foraminal stenosis. CT/CT angio abdomen pelvis IMPRESSION: Infrarenal abdominal aortic aneurysm stable in size measuring 4.7 cm in its greatest diameter without evidence of endoleak on this single phase study. Endograft widely patent with minimal eccentric thrombus anteriorly at its superior segment. Stable right iliac saccular aneurysm. Fleischner guidelines were followed.
[2023-03-21] MEDS: iohexoL 350 MG/ML 100 ML INFUS..BTL IV (10:22)
[2023-03-21 13:09] LABS: Creatinine POC 0.6 mg/dL (0.5-1.4); GFR POC > 60
== END 2023-03-21 10:08 | disposition home or self-care (01) ==
LOC: HO.CT 10:07
PROVIDERS: PCP Pediatrics; Visit Provider Surgery Vascular Surgery
DX: I71.40 Abdominal aortic aneurysm, without rupture, unspecified (principal)
CPT/HCPCS: 74174; 82565; Q9967

== ENCOUNTER 2023-04-15 14:27 | Outpatient (AMB) | payer MEDICARE, SELFPAY ==
--- NOTE | 2023-04-15 14:36 | A.OFFVIS_ITS ---
Intake Vital Signs 04/15/23 14:37 Height 5 ft 5 in Weight 140 lb BMI 23.3 Intake Visit Reasons: 1 yr follow up CTA Abd/pelvis 03/21/23 Intake Note: 1 year follow up CTA Abd/pelvis 03/21/2023 for Hx of AAA repair & Right femoral endarterectomy 05/28/2021 pt says he is doing well no abd pain or cramping.pt states he gets some minor aches on both calfs after walking. Accompanied by: Daughter Allergies No Known Allergies Allergy (Verified 04/15/23 14:55) HPI 1 yr follow up CTA Abd/pelvis 03/21/23 HPI Details Very pleasant 87-year-old gentleman presents for routine follow-up status post endovascular repair and right femoral endarterectomy performed in May of 2021. He continues to be very active. He is able to easily bike 20 miles. He walks 2-3 miles with no difficulty. He does note some occasional calf pain but other than that doing fairly well. He now presents for routine surveillance follow-up. [facility] Medical History Exercises daily COVID-19 vaccine series completed Restless leg syndrome Asthma Peripheral artery disease Small bowel obstruction GERD (gastroesophageal reflux disease) Hypercholesteremia Surgical History History of endovascular stent graft for abdominal aortic aneurysm (AAA) (05/28/21) Hx of exploratory laparotomy History of esophagogastroduodenoscopy (EGD) H/O colonoscopy H/O hernia repair History of cholecystectomy Family History Mother Ovarian cancer Breast cancer Father Stroke Sister Lung cancer Brother Lung cancer Sister Arthritis Social History Are you a primary managed care nurse to a significant other at home: No Do you presently have visiting nurse or other home services: No Alcohol intake: never Patient Tobacco Use Status: Never used Tobacco Advance Directives Date on File: 05/30/21 service: No Current occupational status: retired Review of Systems Const All systems reviewed & are unremarkable except as noted in HPI and below Reports no additional complaints ENT Reports Normal hearing present Card Denies chest pain, Denies chest pain at rest, Denies chest pain with activity and Denies pedal edema Resp Denies cough GI Denies abdominal pain Musc Denies abnormal gait, Denies muscle cramps and Denies radiating pain into limb Skin/Breast Denies skin ulcer and Denies wounds Neuro Reports Normal hearing present and Denies abnormal gait Psych Reports no additional complaints Physical Exam Vital Signs: BMI result Body Mass Index 23.3 Const General: cooperative, healthy appearing and comfortable Orientation/consciousness: oriented to person, oriented to place and oriented to time HEENT Head: Yes normal to inspection Neck Neck: Yes normal visual inspection Carotids: no bruits Chest Chest palpation & inspection: normal inspection of the chest Resp Effort & Inspection: normal respiratory effort and able to speak in complete sentences Auscultation: clear to auscultation bilaterally, no crackles, no rales, no rhonchi and no wheezes Cardio Other: Palpable DP bilateral Rate: regular rate Rhythm: regular rhythm Heart sounds: S1 normal heart sound present and S2 normal heart sound present Bruits: no carotid bruits Peripheral pulses: Peripheral pulses 2+ throughout GI Inspection: Yes normal to inspection Skin Wounds: no wounds Hair: normal Neuro General: oriented to person, oriented to place and oriented to time Cranial nerves: Yes CN's II-XII intact bilaterally and Yes Normal hearing pre sent Cognition (Neuro): normal cognition Motor exam (neuro): 5/5 motor strength present throughout Extrem Other: venous exam: No significant superficial varicosities or spider telangiectasias, minimal edema General: No clubbing, No cyanosis and No edema Psych Appearance: grossly normal Mental Status: mental status grossly normal Speech and movement: Normal speech and movement present Results Reviewed Results Reviewed: CT angiogram dated 03/21/2023 demonstrates stable aorta measuring 4.7 with no evidence of endoleak. Endograft in appropriate position. Written report and images were reviewed. Assessment & Plan Assessment & Plan (1) AAA (abdominal aortic aneurysm) without rupture: Comment: 05/28/2021 - endovascular aortic aneurysm repair with Endologix AFX2 device Code(s): I71.4 - Abdominal aortic aneurysm, without rupture Plan: In short patient has stable aortic endograft. We have discussed the pathophysiology of aortic aneurysms and the risk of ruptures. We have discussed rupture risk based on size. In addition we have discussed conservative measures and risk factor modification. the patient is scheduled for surveillance follow-up in approximately 1 year. Thank you for allowing us to participate in the care of this patient Orders: Orders CT angio abdomen pelvis 364 Days I71.4 - Abdominal aortic aneurysm, without rupture Blood Urea Nitrogen 364 Days I71.4 - Abdominal aortic aneurysm, without rupture Creatinine 364 Days I71.4 - Abdominal aortic aneurysm, without rupture Coding Level of Care Code Est Pt Level 4 (36660) Diagnoses AAA (abdominal aortic aneurysm) without rupture I71.4
[2023-04-15 14:37] VITALS: BMI 23.3
== END 2023-04-15 15:16 | disposition home or self-care (01) ==
PROVIDERS: PCP Pediatrics; Visit Provider Surgery Vascular Surgery
DX: I71.40 Abdominal aortic aneurysm, without rupture, unspecified (principal); Z95.828 Presence of other vascular implants and grafts
CPT/HCPCS: 99213

== ENCOUNTER → 2023-04-15 14:27 | Outpatient (BNVA) | payer MEDICARE, SELFPAY | PROVIDERS: PCP Pediatrics; Visit Provider Surgery Vascular Surgery | DX: I71.40 Abdominal aortic aneurysm, without rupture, unspecified (principal) | CPT/HCPCS: 99212 ==

== ENCOUNTER 2023-10-13 10:31 | Outpatient (AMB) | payer MEDICARE, SELFPAY ==
[2023-10-13 10:35] VITALS: BP 118/62; PULSE 76; BMI 23.1
--- NOTE | 2023-10-13 10:35 | MHC.OFFVIS ---
Intake Vital Signs 10/13/23 10:35 Height 5 ft 5 in Weight 138 lb 14.259 oz BMI 23.1 BP 118/62 Blood Pressure Location Lt brachial Position Sitting Pulse 76 Intake Visit Reasons: 1 yr f/u Intake Note: pt its here for 1 yr f/up/ pt states that he its feeling great. Traffic Enumerator Required: No Accompanied by: Daughter Allergies No Known Allergies Allergy (Verified 04/15/23 14:55) Medication List - Last Reconciled 10/13/23 by Edwin Burnette MD albuterol sulfate 90 mcg/actuation (ProAir HFA) 2 puffs inhalation Q4-6H PRN aspirin 81 mg PO DAILY cholecalciferol (vitamin D3) (Vitamin D3) 50 mcg PO DAILY clonazepam 1 mg PO BEDTIME PRN fluticasone propionate 0.05% 1 appl topical DAILY PRN meclizine 12.5 mg PO TID PRN multivitamin 1 tab PO DAILY omega-3 fatty acids-fish oil 684-1,200 mg 1 cap PO DAILY omeprazole 20 mg PO DAILY rosuvastatin 40 mg PO DAILY HPI HPI Comments History of Present Illness Details Pleasant 88 year gentleman here for follow-up. He was seen for preoperative cardiovascular risk assessment for endovascular repair of abdominal aortic aneurysm. He underwent repair of his aneurysm in May 2021 uneventfully. 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 He has been on statin therapy. He is a nonsmoker. He recently was admitted to [facility] with few symptoms. He said he was sitting down and about to drink coffee in the morning when he developed some paresthesias and numbness over his scalp followed by some incoordination and he was unable to hold his phone. He called 911 and was taken to the emergency department. He had MRI of his brain which did not show any stroke. These symptoms lasted for seconds to minutes and were self-limiting to the point that he almost called and canceled the EMS. He was advised to get of 30 day event monitor after that. He said since then he has been hydrating himself well. And has not had any further symptoms. Based on brain MRI did not have a stroke. He was thought to have a TIA. He denied any palpitations at the time this happened. No chest pain or shortness of breath. He was seen in the office and referred for 14 day Holter monitor. Holter monitor showed frequent premature atrial complexes and runs of supraventricular tachycardia. He said while wearing the Holter he did not have any symptoms. On follow-up he has been doing well. He has no exertional symptoms. He is physically active no chest discomfort shortness of breath. His main complaint is restless legs which really bother him and he has to keep moving his legs all the time. He does not eat a lot of green leafy vegetables and does not eat any meat so iron deficiency is a question. He had echocardiography recently which raise some concern for mobile mass on the tricuspid valve. This was unclear and he had blood cultures drawn which were normal. He has no symptoms or signs of endocarditis. 10/13/23: He returns for follow-up. He has been doing well. Occasionally gets vertigo which is a chronic problem. Main complaint again is restless legs. Appears his iron level was okay previously. No other complaints. [facility], [facility] Medical History Exercises daily COVID-19 vaccine series completed Restless leg syndrome Asthma Peripheral artery disease Small bowel obstruction GERD (gastroesophageal reflux disease) Hypercholesteremia Surgical History History of endovascular stent graft for abdominal aortic aneurysm (AAA) (05/28/21) Hx of exploratory laparotomy History of esophagogastroduodenoscopy (EGD) H/O colonoscopy H/O hernia repair History of cholecystectomy Family History Mother Ovarian cancer Breast cancer Father Stroke Sister Lung cancer Brother Lung cancer Sister Arthritis Social History Are you a primary associate director career services to a significant other at home: No Do you presently have visiting nurse or other home services: No Alcohol intake: never Patient Tobacco Use Status: Never used Tobacco Advance Directives Date on File: 05/30/21 service: No Current occupational status: retired Review of Systems Const Denies chills, Denies fatigue, Denies fever(s), Denies frequent falls, Denies weakness, Denies weight gain and Denies weight loss ENT Denies dizziness Card Denies chest pain, Denies leg edema, Denies lightheadedness, Denies palpitations, Denies dyspnea and Denies dyspnea on exertion Resp Denies cough, Denies dyspnea and Denies dyspnea on exertion GI Denies hematochezia Musc Denies abnormal gait, Denies muscle weakness, Denies numbness, Denies radiating pain into limb and Denies tingling Neuro Denies abnormal gait, Denies dizziness, Denies frequent falls, Denies numbness, Denies tingling and Denies weakness Endo Denies fatigue and Denies palpitations Physical Exam Vital Signs: Last Vital Signs Pulse 76 10/13/23 10:35 BP 118/62 10/13/23 10:35 BMI result Body Mass Index 23.1 GENERAL APPEARANCE: in no acute distress, pleasant. NECK: no carotid bruit, no jugular venous distention. SKIN: no suspicious lesions, warm and dry. HEART: no murmurs, regular rate and rhythm. LUNGS: clear to auscultation bilaterally. ABDOMEN: soft, nontender. EXTREMITIES: no edema. PERIPHERAL PULSES: equal. NEUROLOGIC: No gross deficits, AAO X 3 Office Procedures EKG Details: Sinus rhythm 76 beats per minute, left axis deviation, QTC 450 milliseconds. [id number], Complete Assessment & Plan Assessment & Plan (1) Restless leg syndrome: Code(s): G25.81 - Restless legs syndrome (2) PAC (premature atrial contraction): Code(s): I49.1 - Atrial premature depolarization (3) Dizziness: Code(s): R42 - Dizziness and giddiness Plan Pleasant 88-year-old gentleman here for follow-up. He has been doing well and is physically active. No chest pain or shortness of breath. His main complaint is restless legs. His iron level has been stable based on blood workup. He had blood culture drawn because there was concern for a mobile mass on tricuspid valve in some views. This was unclear by transthoracic echocardiogram as the structure was seen in limited views. He had blood cultures done which were negative. He has not had any fevers or chills or any symptoms/signs of endocarditis. Previously has premature atrial complexes and short runs of SVT on the Holter monitor. His blood pressure has not been high enough to add beta-leslie. Also on follow-up he has not had any further symptoms. I have advised him to follow-up with us as needed and he is agreeable. Thank you for allowing me to participate in the care of your patient. Please feel free to contact me if you have any questions. Coding Level of Care Code Est Pt Level 4 (66736) Diagnoses Restless leg syndrome G25.81 PAC (premature atrial contraction) I49.1 Dizziness R42 CPT Codes EKG - CPT: [id number], Complete ([id number])
== END 2023-10-13 11:05 | disposition home or self-care (01) ==
PROVIDERS: Visit Provider Internal Medicine Cardiovascular Disease
DX: G25.81 Restless legs syndrome (principal); I49.1 Atrial premature depolarization; R42 Dizziness and giddiness
CPT/HCPCS: 93010; 99214

== ENCOUNTER → 2023-10-13 10:31 | Outpatient (BNVA) | payer MEDICARE, SELFPAY | PROVIDERS: Visit Provider Internal Medicine Cardiovascular Disease | DX: G25.81 Restless legs syndrome (principal); R42 Dizziness and giddiness; I49.1 Atrial premature depolarization; I47.10 Supraventricular tachycardia, unspecified | CPT/HCPCS: 93005; 99212 ==

== ENCOUNTER 2024-03-17 10:15 | Outpatient (REF) | payer MEDICARE, SELFPAY ==
--- NOTE | ~2024-03-17 | CT_ITS ---
STUDY PERFORMED: CTA ABDOMEN AND PELVIS WITHOUT AND WITH CONTRAST HISTORY: Abdominal aortic aneurysm, status post aortic stent graft DESCRIPTION: Routine abdomen and pelvis CTA protocol with contrast was performed. 80 mL of Omnipaque 350 was administered. 3D POSTPROCESSING: Multiple 3-D angiographic images were processed from the initial data set by the arrt technologist at the modality workstation under concurrent physician supervision. DOSE LOWERING TECHNIQUES: This CT examination was performed using dose optimization techniques as appropriate, variously including the following: - Automated exposure control - Adjustment of mA and/or kV according to patient size (this includes techniques or standardized protocols for targeted exams where dose is matched to indication/reason for exam; i.e. extremities or head) - Use of iterative reconstruction technique DLP: 394 mGycm. COMPARISON: CTA from 03/21/2023 FINDINGS: VASCULAR: ABDOMINAL AORTA: Fusiform infrarenal abdominal aortic aneurysm measuring 4.4 x 3.9 cm, previously measuring 4.4 x 3.8 cm. Aortic stent graft is in stable position and widely patent. No evidence of endoleak. RIGHT LOWER EXTREMITY: The iliac limb of the stent graft is patent. Common iliac artery, external iliac artery, internal iliac arteries and visualized femoral arteries are normal in caliber and patent.. LEFT LOWER EXTREMITY: The iliac limb of the stent graft is patent. Common iliac artery, external iliac artery, internal iliac arteries and visualized femoral arteries are normal in caliber and patent.. CELIOMESENTERIC ARTERIES: Patent. RENAL ARTERIES: Patent. NONVASCULAR: Lung Bases: The visualized lung bases are unremarkable. Liver, Gallbladder and Biliary Tree: The liver is normal in size, shape, and attenuation. No focal hepatic lesion or biliary ductal dilatation is present. Status post cholecystectomy Pancreas: Unremarkable. Spleen: Unremarkable. Adrenal Glands: Unremarkable. Kidneys and Ureters: The kidneys are normal in size, shape, and attenuation. No hydronephrosis, hydroureter, or calculi seen. No perinephric stranding. Stable cortical cyst in the upper pole of the left kidney measuring 3.7 cm. No follow-up indicated. There are multiple bilateral parapelvic cysts which are stable. Bladder: Unremarkable. Gastrointestinal Tract: The small bowel are unremarkable. The appendix is unremarkable. Diverticula seen within the sigmoid colon without evidence of acute diverticulitis Abdominal Wall: No significant hernia is appreciated. Lymph Nodes: Normal. Pelvic Viscera: Prostate gland is enlarged. Osseous Structures: Degenerative disc disease in the lumbar spine CT/CT angio abdomen pelvis IMPRESSION: 1. Stable infrarenal abdominal aortic aneurysm with aortic stent graft in place. No evidence of endoleak. 2. Stable nonvascular findings as described above. Electronically signed by: Juan C Velasquez MD 03/19/2024 09:07 AM EDT
[2024-03-17] MEDS: iohexoL 350 MG/ML 100 ML INFUS..BTL IV (10:51)
[2024-03-22 12:37] LABS: GFR POC > 60
== END 2024-03-17 10:16 | disposition home or self-care (01) ==
LOC: HO.CT 10:15
PROVIDERS: PCP Pediatrics; Visit Provider Surgery Vascular Surgery
DX: I71.40 Abdominal aortic aneurysm, without rupture, unspecified (principal)
CPT/HCPCS: 74174; 82565; Q9967

== ENCOUNTER 2024-04-22 10:58 | Outpatient (AMB) | payer MEDICARE, SELFPAY ==
[2024-04-22 11:01] VITALS: BMI 23.0
--- NOTE | 2024-04-22 11:01 | MHC.OFFVIS ---
Vital Signs 04/22/24 11:01 Height 5 ft 5 in Weight 138 lb BMI 23.0 Intake Visit Reasons: 1y follow up s/p CTA abd/pelvis 03/17/24 Intake Note: 1 yr follow up CTA Abd/pelvis 03/17/24 w/ Hx of AAA repair and Right Femoral Endarterectomy 05/28/2021. Pt has no complaints Allergies No Known Allergies Allergy (Verified 04/22/24 11:04) HPI HPI 1y follow up s/p CTA abd/pelvis 03/17/24: Details: Very pleasant 88-year-old gentleman presents for routine follow-up regarding endovascular aneurysm repair and right femoral endarterectomy. This was done back in May of 2021. Remains quite active. He most recently went to [facility] in [place] and walked 2-3 miles in the sand easily. He bikes more than 20 miles on occasion. He reports he is doing fairly well no interval issues. Now presents for routine surveillance follow-up with CT scan. [facility] Medical History Exercises daily COVID-19 vaccine series completed Restless leg syndrome Asthma Peripheral artery disease Small bowel obstruction GERD (gastroesophageal reflux disease) Hypercholesteremia Surgical History History of endovascular stent graft for abdominal aortic aneurysm (AAA) (05/28/21) Hx of exploratory laparotomy History of esophagogastroduodenoscopy (EGD) H/O colonoscopy H/O hernia repair History of cholecystectomy Family History Mother Ovarian cancer Breast cancer Father Stroke Sister Lung cancer Brother Lung cancer Sister Arthritis Social History Are you a primary career education teacher to a significant other at home: No Do you presently have visiting nurse or other home services: No Alcohol intake: never Patient Tobacco Use Status: Never used Tobacco Advance Directives Date on File: 05/30/21 service: No Current occupational status: retired Review of Systems Const All systems reviewed & are unremarkable except as noted in HPI and below Reports no additional complaints ENT Reports Normal hearing present Card Denies chest pain, Denies chest pain at rest, Denies chest pain with activity and Denies pedal edema Resp Denies cough GI Denies abdominal pain Musc Denies abnormal gait, Denies muscle cramps and Denies radiating pain into limb Skin/Breast Denies skin ulcer and Denies wounds Neuro Reports Normal hearing present and Denies abnormal gait Psych Reports no additional complaints Physical Exam Vital Signs: BMI result Body Mass Index 23.0 Const General: cooperative, healthy appearing and comfortable Orientation/consciousness: oriented to person, oriented to place and oriented to time HEENT Head: Yes normal to inspection Neck Neck: Yes normal visual inspection Carotids: no bruits Chest Chest palpation & inspection: normal inspection of the chest Resp Effort & Inspection: normal respiratory effort and able to speak in complete sentences Auscultation: clear to auscultation bilaterally, no crackles, no rales, no rhonchi and no wheezes Cardio Rate: regular rate Rhythm: regular rhythm Heart sounds: S1 normal heart sound present and S2 normal heart sound present Bruits: no carotid bruits Peripheral pulses: Peripheral pulses 2+ throughout GI Inspection: Yes normal to inspection Skin Wounds: no wounds Hair: normal Neuro General: oriented to person, oriented to place and oriented to time Cranial nerves: Yes CN's II-XII intact bilaterally and Yes Normal hearing present Cognition (Neuro): normal cognition Motor exam (neuro): 5/5 motor strength present throughout Extrem Other: venous exam: No significant superficial varicosities or spider telangiectasias, minimal edema General: No clubbing, No cyanosis and No edema Psych Appearance: grossly normal Mental Status: mental status grossly normal Speech and movement: Normal speech and movement present Results Reviewed Results Reviewed: CT angiogram dated 03/17/2024 demonstrates stable aortic endograft with no evidence of endoleak. Written report and images were reviewed. Assessment & Plan Assessment & Plan (1) AAA (abdominal aortic aneurysm) without rupture: Comment: 05/28/2021 - endovascular aortic aneurysm repair with Endologix AFX2 device Code(s): I71.4 - Abdominal aortic aneurysm, without rupture Category: Medical Qualifiers: Abdominal aorta location: infrarenal aorta Qualified Code(s): I71.43 - Infrarenal abdominal aortic aneurysm, without rupture Plan: In short patient is doing extremely well in terms of his aortic endograft. He is now stable for his 3 year follow-up. We will schedule annual surveillance follow-up with CT angiogram. Should there be any interval issues happy to see him back sooner. Thank you for allowing us to assist in his care. If there are any questions or concerns please do not hesitate to contact us. Please note a longitudinal relationship has been created with the patient and we have been following and surveillance this chronic condition. Orders: Orders Blood Urea Nitrogen 1 Year I71.43 - Infrarenal abdominal aortic aneurysm, without rupture Creatinine 1 Year I71.43 - Infrarenal abdominal aortic aneurysm, without rupture CT angio abdomen pelvis 1 Year I71.43 - Infrarenal abdominal aortic aneurysm, without rupture Coding Level of Care Code Est Pt Level 4 (12043) Complex EM visit Add On G2211 Diagnoses Infrarenal abdominal aortic aneurysm (AAA) without rupture I71.43 Abdominal aorta location: infrarenal aorta
== END 2024-04-22 11:23 | disposition home or self-care (01) ==
PROVIDERS: PCP Pediatrics; Visit Provider Surgery Vascular Surgery
DX: I71.43 Infrarenal abdominal aortic aneurysm, without rupture (principal)
CPT/HCPCS: 99214; G2211

== ENCOUNTER → 2024-04-22 10:58 | Outpatient (BNVA) | payer MEDICARE, SELFPAY | PROVIDERS: PCP Pediatrics; Visit Provider Surgery Vascular Surgery | DX: I71.43 Infrarenal abdominal aortic aneurysm, without rupture (principal) | CPT/HCPCS: 99212 ==

== ENCOUNTER 2025-04-18 13:03 | Outpatient (REF) | payer MEDICARE, SELFPAY ==
[2025-04-18 14:25] LABS: Blood Urea Nitrogen 21 mg/dL (9-16); Estimated Glomerular Filt Rate > 60
--- OUTSIDE RECORDS SUMMARY | 2025-04-18 15:27 | XMS_ITS | Encounter Summary ---
Author Organization [facility] Address [address] [facility] [address] [place] [address] Phone Care Team Providers Care Brick Setter Name Role Phone Luis Alberto Davey MD Unavailable +[phone] Romie Arevalo MD Unavailable +-58 Ann Snyder MD Unavailable [phone] Justo Gurrola INDUSTRIAL COMMERCIAL GROUNDSKEEPER Unavailable [phone] Sandra Gross MD Unavailable +37 Miguel Solomon [employer]IDENT [employer] COMPANY Unavailable +1-41 Day Chandra MD Unavailable +-[phone] Bigg Caro MD Unavailable +[phone] Wilfred Jones [employer]IDENT [employer] Unavailable +[phone] Jamaal Hernandez MD Unavailable +1-4 Chloe Zaragoza [employer]IDENT [employer] Unavailable [phone] Luis Alberto Davey MD Primary Care Provider + Edwin Burnette MD Unavailable [phone] Encounter Details Date Type Department Care Team (Latest Contact Info) Description 05/19/2017 Transcribe Orders [facility] [address] [place] [address] Matthew Billings MD [address] [facility], [address] [place] [address] [email or web address] 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) Social History Tobacco Use Types Packs/Day Years Used Date Smoking Tobacco: Never Assessed Sex and Gender Information Value Date Recorded Sex Assigned at Male 11/22/2021 7:59 PM EDT Legal Sex Male 5:13 PM EST Gender Identity Male 11/22/2021 7:59 PM EDT Sexual Orientation Straight 11/22/2021 7: 59 PM EDT documented as of this encounter Plan of Treatment Upcoming Encounters Date Type Department Care Team (Late st Contact Info) Description 07/06/2025 1:45 PM EST Office Visit [facility] Medicine [address] [place] [address] Luis Alberto Davey MD 22 [facility], [address] [place] [address] [email or web address] documented as of this encounter Procedures Procedure Name Priority Date/Time Associated Diagnosis Comments PSA (SCREENING) Routine 05/19/2017 8:40 AM EST Benign localized hyperplasia of prostate with urinary retention documented in this encounter Results * PSA (screening) (05/19/2017 8:40 AM EST) PSA 2.94 0 - 4.00 ng/mL [facility] Blood 05/19/2017 8:40 AM EST 05/19/2017 2:37 PM EST us Matthew Billings MD LAB BLOOD ORDERABLES Final Resul t [facility] [address] [place] [address] documented in this encounter Visit Diagnoses Diagnosis Benign localized hyperplasia of prostate with urinary retention- Primary Benign localized hyperplasia of prostate with urinary obstruction and other lower urinary tract symptoms (LUTS) documented in this encounter Additional Health Concerns Infection Onset Date Last Indicated Resolved Time CoV-Exposed Comment:Recent close contact documented in the COVID-19 PCR/PRO order 05/30/2021 06/06/2021 06/14/2021 1:[address] documented as of this encounter Care Teams Brick Setter Relationship Specialty Start Date End Date Luis Alberto Davey MD [address] [place] [address], [address] [address] PCP - General 05/19/17 Luis Alberto Davey MD [address] [place] [address], [address] [address] Historical LMR Provider 05/03/17 2 Romie Arevalo MD [address] [place] [address], [address] [address] Historical LMR Provider 05/03/17 07/21/21 Ann Snyder MD [address] [place] [address] [email or web address] Historical LMR Provider 05/03/17 07/21/21 Justo Gurrola NP [address] [place] [address] 2_[place] [address] [email or web address] Historical LMR Provider 05/03/17 07/21/21 Sandra Gross MD [address] [address] Historical LMR Provider 05/03/17 07/21/21 Miguel Solomon, [employer] 22 [facility], [address] [place] [address] Historical LMR Provider 05/03/17 07/21/21 Day Chandra MD [address] [place] [address] Historical LMR Provider 05/03/17 Bigg Caro MD [address] [place] [address], [address] [place] [address] Historical LMR Provider 05/03/17 07/21/21 Wilfred Jones [employer] [address] [place] [address] Historical LMR Provider 05/03/17 07/21/21 Jamaal Hernandez MD 22 [facility] 1 [place] [address] [email or web address] Historical LMR Provider 05/03/17 07/21/21 Chloe Zaragoza CNP [address] [place] [address], [address] [place] [address] Historical LMR Provider 05/03/17 Edwin Burnette MD 3300 [facility] [place] [address] Hospitalist 11/14/21 documented as of this encounter Additional Source Comments The information contained in this document represents components of the legal health record. It is not the complete legal health record.[facility]
--- OUTSIDE RECORDS SUMMARY | 2025-04-18 15:27 | XMS_ITS | Encounter Summary ---
Author Organization [facility] Address [address] [facility] [address] [place] [address] Phone Care Team Providers Care Planning Management It Specialist Name Role Phone Luis Alebrto Davey MD Unavailable +-[phone] Romie Arevalo MD Unavailable +-58 Ann Snyder MD Unavailable [phone] Justo Gurrola KEY ACCOUNT COORDINATOR Unavailable [phone] Sandra Gross MD Unavailable +37 Miguel Solomon PUBLIC TRANSIT TROLLEY DRIVER Unavailable +1-41 Day Chandra MD Unavailable +-[phone] Bigg Caro MD Unavailable +[phone] Wilfred Jones PUBLIC TRANSIT TROLLEY DRIVER Unavailable +[phone] Jamaal Hernandez MD Unavailable +1-4 Chloe Zaragoza PUBLIC TRANSIT TROLLEY DRIVER Unavailable [phone] Luis Alberto Davey MD Primary Care Provider + Edwin Burnette MD Unavailable [phone] Encounter Details Date Type Department Care Team (Late st Contact Info) Description 05/26/2017 Procedure Pass [facility] Endoscopy Admitting Dept Virtual Department 30 [place] [address] Social History Tobacco Use Types Packs/Day Years Used Date Smoking Tobacco: Unknown Smokeless Tobacco: Current Alcohol Use Standard Drinks/Week Comments No 0 (1 standard drink = 0.6 oz pur e alcohol) Sex and Gender Information Value Date Recorded Sex Assigned at Male 11/22/2021 7:59 PM EDT Legal Sex Male 5:13 PM EST Gender Identity Male 11/22/2021 7:59 PM EDT Sexual Orientation Straight 11/22/2021 7: 59 PM EDT documented as of this encounter Plan of Treatment Upcoming Encounters Date Type Department Care Team (Late Contact Info) Description 07/06/2025 1:45 PM EST Office Visit [facility] [address] [place] [address] Luis Alberto Davey MD [address] [place] [address], [address] [place] [address] [email or web address] documented as of this encounter Visit Diagnoses Not on filedocumented in this encounter Additional Health Concerns Infection Onset Date Last Indicated Resolved Time CoV-Exposed Comment:Recent close contact documented in the COVID-19 PCR/PRO order 05/30/2021 06/06/2021 06/14/2021 1:[address] documented as of this encounter Care Teams Planning Management It Specialist Relationship Specialty Start Date End Date Luis Alberto Davey MD [address] [place] [address], [address] [place] [address] [email or web address] PCP - General 05/19/17 Luis Alberto Davey MD [address] [place] [address], [address] [place] [address] Historical LMR Provider 05/03/17 2 Romie Arevalo MD [address] [place] [address], [address] [place] [address] Historical LMR Provider 05/03/17 07/21/21 Ann Snyder MD [address] [place] [address] [email or web address] Historical LMR Provider 05/03/17 07/21/21 Justo Gurrola NP [address] [place] [address] 2_[place] [address] [email or web address] Historical LMR Provider 05/03/17 07/21/21 Sandra Gross MD [address] [place] [address], [address] [place] [address] Historical LMR Provider 05/03/17 07/21/21 Miguel Solomon, PUBLIC TRANSIT TROLLEY DRIVER [address] [place] [address], [address] [place] [address] Historical LMR Provider 05/03/17 07/21/21 Day Chandra MD [address] [place] [address], [address] [place] [address] Historical LMR Provider 05/03/17 Bigg Caro MD [address] [place] [address], [address] [place] [address] Historical LMR Provider 05/03/17 07/21/21 Wilfred Jones PUBLIC TRANSIT TROLLEY DRIVER 15 [facility], 2nd [place] [address] [email or web address] Historical LMR Provider 05/03/17 07/21/21 Jamaal Hernandez MD 22 [facility] Floor 1 [place] [address] [email or web address] Historical LMR Provider 05/03/17 07/21/21 Chloe Zaragoza CNP 22 [facility], [address] [place] [address] [email or web address] Historical LMR Provider 05/03/17 Edwin Burn[place] MD 3300 [facility] [place] [address] Hospitalist 11/14/21 documented as of this encounter Additional Source Comments The information contained in this document represents components of the legal health record. It is not the complete legal health record.[facility]
--- OUTSIDE RECORDS SUMMARY | 2025-04-18 15:28 | XMS_ITS | Encounter Summary ---
Author Organization [facility] Address [address] [facility] [address] [place] [address] Phone Care Team Providers Care Cafe Site Attendant Name Role Phone Luis Alberto Davey MD Unavailable +-[phone] Romie Arevalo MD Unavailable +-58 Ann Snyder MD Unavailable [phone] Justo Gurrola BOTTOM TURNING LATHE TENDER Unavailable +[phone] Sandra Gross MD Unavailable +37 Miguel Solomon REFRIGERATOR GLAZIER Unavailable +1-41 Day Chandra MD Unavailable +[phone] Bigg Caro MD Unavailable +[phone] Wilfred Jones REFRIGERATOR GLAZIER Unavailable +[phone] Jamaal Hernandez MD Unavailable +1-4 Chloe Zaragoza REFRIGERATOR GLAZIER Unavailable +[phone] Luis Alberto Davey MD Primary Care Provider + Edwin Burn[place] MD Unavailable [phone] Encounter Details Date Type Department Care Team (Late st Contact Info) Description 12/01/2020 Ancillary Orders [facility] [address] 3rd [place] [address] Greg Cross DO 22 [facility] [address] [place] [address] PVD (peripheral vascular disease) Social History Tobacco Use Types Packs/Day Years Used Date Smoking Tobacco: Never Smokeless Tobacco: Never Alcohol Use Standard Drinks/Week Comments No 0 [...] Description 07/06/2025 1:45 PM EST Office Visit [address] [place] [address] Luis Alberto Davey MD 22 [facility], [address] [place] [address] documented as of this encounter Results * US Lower Extremity Arteries (STACIE) Physio Complete Unilat (12/01/2020 2:07 PM EDT) Anatomical Region Laterality Modality Ultrasound Narrative 12/05/2020 8:55 AM EDT See scanned documents. Procedure Note Dima Good MD - 12/05/2020 See scanned documents. 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 PVD (peripheral vascular disease) Unspecified peripheral vascular disease PVD (peripheral vascular disease) Unspecified peripheral vascular disease documented in this encounter Additional Health Concerns Infection Onset Date Last Indicated Resolved Time CoV-Exposed Comment:Recent close contact documented in the COVID-19 PCR/PRO order 05/30/2021 06/06/2021 06/14/2021 1:[address] documented as of this encounter Care Teams Cafe Site Attendant Relationship Specialty Start Date End Date Luis Alberto Davey MD [address] [place] [address], [address] [place] [address] PCP - General 05/19/17 Luis Alberto Davey MD [address] [place] [address], [address] [address] Historical LMR Provider 05/03/17 2 Romie Arevalo MD [address] [place] [address], 201 [place] [address] Historical LMR Provider 05/03/17 07/21/21 Ann Snyder MD [address] [place] [address] [email or web address] Historical LMR Provider 05/03/17 07/21/21 Justo Gurrola NP [address] [place] [address] 2_[place] [address] [email or web address] Historical LMR Provider 05/03/17 07/21/21 Sandra Gross MD 15 [facility], 2nd [place] [address] Historical LMR Provider 05/03/17 07/21/21 Miguel Solomon, REFRIGERATOR GLAZIER 22 [facility], [address] [place] [address] Historical LMR Provider 05/03/17 07/21/21 Day Chandra MD 15 [facility], 2nd [place] [address] Historical LMR Provider 05/03/17 Bigg Caro MD [address] [place] [address], [address] [place] [address] Historical LMR Provider 05/03/17 07/21/21 Wilfred Jones REFRIGERATOR GLAZIER [address] [place] [address], 2[address] [place] [address] Historical LMR Provider 05/03/17 07/21/21 Jamaal Hernandez MD 22 [facility] Floor 1 [place] [address] [email or web address] Historical LMR Provider 05/03/17 07/21/21 Chloe Zaragoza CNP [address] [place] [address], [address] [place] [address] Historical LMR Provider 05/03/17 Edwin Burnette MD [address] [place] [address] [place] [address] Hospitalist 11/14/21 documented as of this encounter Additional Source Comments The information contained in this document represents components of the legal health record. It is not the complete legal health record.[facility]
--- OUTSIDE RECORDS SUMMARY | 2025-04-18 15:29 | XMS_ITS | Encounter Summary ---
Author Organization [facility] Address [address] [facility] [address] [place] [address] Phone Care Team Providers Care Management Scientist Name Role Phone EnioDeyanira deckeralana STERN Unavailable [phone] Luis Alberto Davey MD Primary Care Provider [phone] Edwin Burnette MD Unavailable [phone] Encounter Details Date Type Department Care Team (Late st Contact Info) Description 11/19/2021 Procedure Pass [facility], [address] [place] [address] Social History Tobacco Use Types Packs/Day Years [...] Description 07/06/2025 1:45 PM EST Office Visit [facility] [address] [place] [address] [place] [address] Luis Alberto Davey MD 22 [facility], [address] [place] [address] documented as of this encounter Visit Diagnoses Not on filedocumented in this encounter Care Teams Management Scientist Relationship Specialty Start Date End Date Luis Alberto Davey MD [address] [place] [address], [address] [place] [address] PCP - General 05/19/17 Chloe Zaragoza CNP [address] [place] [address], [address] [place] [address] Historical LMR Provider 05/03/17 Edwin Burnette MD [address] [facility] [place] [address] Hospitalist 11/14/21 documented as of this encounter Additional Source Comments The information contained in this document represents components of the legal health record. It is not the complete legal health record.[facility]
--- OUTSIDE RECORDS SUMMARY | 2025-04-18 15:29 | XMS_ITS | Encounter Summary ---
Author Organization [facility] Address [address] [facility] [address] [place] [address] Phone Care Team Providers Care Tank Furnace Operator Name Role Phone Luis Alberto Davey MD Unavailable +[phone] oRmie Arevalo MD Unavailable +-58 Ann Snyder MD Unavailable [phone] Justo Gurrola EAR PULL MACHINE OPERATOR Unavailable [phone] Sandra Gross MD Unavailable +37 Miguel Soolmon VISUALIZER Unavailable +1-41 Day Chandra MD Unavailable +-[phone] Bigg Caro MD Unavailable +[phone] Wilfred Jones VISUALIZER Unavailable +[phone] Jamaal Hernandez MD Unavailable +1-4 Chloe Zaragoza VISUALIZER Unavailable [phone] Luis Alberto Davey MD Primary Care Provider + Edwin Burnette MD Unavailable [phone] Encounter Details Date Type Department Care Team (Latest Contact Info) Description 08/07/2018 Transcribe Orders [facility] Specimen Processing [address] [place] [address] Luis Alberto Davey MD [address] [place] [address], [address] [place] [address] [email or web address] Mechanical and motor problems with internal organs (Primary Dx) Social History Tobacco Use Types [...] Description 07/06/2025 1:45 PM EST Office Visit [address] [address] Luis Alberto Davey MD [address] [place] [address], [address] [place] [address] documented as of this encounter Results * Rapid influenza A and B (08/07/2018 10:38 AM EST) Influenza A Ag Negative Negative [facility] Influenza B Ag Negative Negative [facility] Other (Nasal) 08/07/2018 10: 38 AM EST 08/07/2018 4:03 PM EST us Luis Alberto Davey MD MICROBIOLOGY - GENERAL ORDERAB LES Final Result [address] [address] documented in this encounter Visit Diagnoses Diagnosis Mechanical and motor problems with internal organs- Primary documented in this encounter Additional Health Concerns Infection Onset Date Last Indicated Resolved Time CoV-Exposed Comment:Recent close contact documented in the COVID-19 PCR/PRO order 05/30/2021 06/06/2021 06/14/2021 1:[address] documented as of this encounter Care Teams Tank Furnace Operator Relationship Specialty Start Date End Date Luis Alberto Davey MD [address] [place] [address], [address] [place] [address] [email or web address] PCP - General 05/19/17 Luis Alberto Davey MD [address] [place] [address], [address] [place] [address] Historical LMR Provider 05/03/17 2 Romie Arevalo MD [address] [place] [address], [address] [place] [address] Historical LMR Provider 05/03/17 07/21/21 Ann Snyder MD [address] [place] [address] [email or web address] Historical LMR Provider 05/03/17 07/21/21 Justo Gurrola NP [address] [place] [address] 2_[place] [address] [email or web address] Historical LMR Provider 05/03/17 07/21/21 Sandra Gross MD [address] [place] [address], 2nd [place] [address] Historical LMR Provider 05/03/17 07/21/21 Miguel Solomon, VISUALIZER 22 [facility], [address] [place] [address] Historical LMR Provider 05/03/17 07/21/21 Day Chandra MD [address] [place] [address], 2[address] [place] [address] Historical LMR Provider 05/03/17 Bigg Caro MD [address] [place] [address], [address] [place] [address] Historical LMR Provider 05/03/17 07/21/21 Wilfred Jones, VISUALIZER [address] [place] [address], [address] [place] [address] [email or web address] Historical LMR Provider 05/03/17 07/21/21 Jamaal Hernandez MD 22 [facility] Floor 1 [place] [address] [email or web address] Historical LMR Provider 05/03/17 07/21/21 Chloe Zaragoza CNP [address] [place] [address], [address] [place] [address] [email or web address] Historical LMR Provider 05/03/17 Edwin Burnette MD [facility] [place] [address] Hospitalist 11/14/21 documented as of this encounter Additional Source Comments The information contained in this document represents components of the legal health record. It is not the complete legal health record.[facility]
--- OUTSIDE RECORDS SUMMARY | 2025-04-18 15:29 | XMS_ITS | Encounter Summary ---
Author Organization [facility] Address [address] [facility] [address] [place] [address] Phone Care Team Providers Care Microbiology Manager Name Role Phone Felirukhsana Chloe STERN Unavailable [phone] Luis Alberto Davey MD Primary Care Provider [phone] Edwin Burnette MD Unavailable [phone] Encounter Details Date Type Department Care Team (Late st Contact Info) Description 03/13/2024 Procedure Pass [facility], [address] [address] Social History Tobacco Use Types Packs/Day Years Used Date Smoking Tobacco: Never Smokeless Tobacco: Never Alcohol Use Standard Drinks/Week Comments No 0 (1 standard drink = 0.6 oz pur e alcohol) Home Health Assessment: Transportation Answer Date Recorded Lack of Transportation (Medical) No 03/17/2024 Lack of Transportation (Non-Medical) No 03/17/2024 Patient Unable or Declines to Respond No 03/17/2024 Education Answer Date Recorded Are you interested in more education? Not on fernando e 11/11/2022 Are you concerned about learning? Not on file 11/11/2022 No 11/11/2022 No 11/11/2022 Digital Access Answer Date Recorded No 12/08/2022 No 12/08/2022 Reliable internet access at home? Not on file 12/08/2022 Device with a working camera? Not on file Sex and Gender Information Value Date Recorded Sex Assigned at Male 11/22/2021 7:59 PM EDT Legal Sex Male 5:13 PM EST Gender Identity Male 11/22/2021 7:59 PM EDT Sexual Orientation Straight 11/22/2021 7: 59 PM EDT documented as of this encounter Functional Status * Calculated C-SSRS Risk Score (Lifetime/Recent) Answer Date of Assessment Author No Risk Indicated 03/13/2024 12:23 PM EDT Valerie King RN * [place] Suicide Severity Rating Scale (Screener/Recent Self-Report) Question Answer Date of Assessment Author 1. Wish to be (Past 1 Month) No 03/13/2024 12:23 PM EDT Valerie King RN 2. Non-Specific Active Suicidal Thoughts (Past 1 Month) No 03/13/2024 12:23 PM EDT Valerie King RN 6. Suicidal Behavior (Lifetime) No 03/13/2024 12:23 PM EDT Valerie King RN documented as of this encounter Plan of Treatment Upcoming Encounters Date Type Department Care Team (Late st Contact Info) Description 07/06/2025 1:45 PM EST Office Visit [facility] [address] [place] [address] [place] [address] Luis Alberto Davey MD [address] [place] [address], [address] [place] [address] documented as of this encounter Visit Diagnoses Not on filedocumented in this encounter Additional Health Concerns Assessment Noted Time PHQ-2 Depression Total Score: 0 07/04/20 22 1:20 PM EST documented as of this encounter Care Teams Microbiology Manager Relationship Specialty Start Date End Date Luis Alberto Davey MD [address] [place] [address], [address] [place] [address] PCP - General 05/19/17 Chloe Zaragoza CNP 22 [facility], [address] [place] [address] [email or web address] Historical LMR Provider 05/03/17 Edwin Burnette MD [facility] [address] Hospitalist 11/14/21 documented as of this encounter Additional Source Comments The information contained in this document represents components of the legal health record. It is not the complete legal health record.[facility]
--- OUTSIDE RECORDS SUMMARY | 2025-04-18 15:29 | XMS_ITS | Encounter Summary ---
Author Organization [facility] Address [address] [place] [address] Phone Care Team Providers Care Cargo Bracer Name Role Phone Chloe Zaragoza LEENA Unavailable [phone] Luis Alberto Davey MD Primary Care Provider [phone] Edwin Burnette MD Unavailable [phone] Reason for Visit * Reason Onset Date Comments Referral 11/14/2023 Encounter Details Date Type Department Care Team (Late st Contact Info) Description 11/14/2023 Telephone [facility] [place] [facility] [address] [place] [address] [place] [address] Luis Alberto Davey MD [address] [facility], [address] [place], [place] [address] [email or web address] Referral Social History Tobacco Use Types Packs/Day Years Used Date Smoking Tobacco: Never Smokeless Tobacco: Never Alcohol Use Standard Drinks/Week Comments No 0 (1 standard drink = 0.6 oz pur e alcohol) Education Answer Date Recorded Are you interested [...] PM EDT documented as of this encounter Progress Notes * Michelle Galindo - 11/27/2023 5:15 PM EDT Patient declined coming in for an appointment to get a referral. * Ronald López - 11/26/2023 4:58 PM EDT Pt called to follow up on this issue. Pt stated that he feels like he saw Dr. Hewitt recently andwould prefer not to come back in. Pt requested to be updated on what is happening with the referral. Please contact pt and advise. Central Support Profiling Machine Setup Operator (Please do not reply to this user; this inbox is not monitored.) Thank you. * Toño Glover RN - 11/17/2023 9:14 AM EDT Spoke with patient. He states he has hx vertigo that only happens at night and that he has spoken with PCP about it. He states he will go months without an episode and then it'll happen at night at random. He had an episode last week which is what led him to call for referral. He states he was seenby an ENT years ago and would like to be referred back. Advised I would need to check with PCP. Offered visit with PCP for sooner evaluation as ENT is booking out several months. Declined OV. * Kaleigh Hill - 11/17/2023 9:09 AM EDT Patient left a voicemail on the referrals voicemail to follow up on this request. Please contact and advise. * Bere Frias - 11/14/2023 1:46 PM EDT Patient called requesting a referral to an Laundry Helper and states will be happy to go to whatever provider Dr Davey would recommend. Please advise. Thank you! documented in this encounter Plan of Treatment Upcoming Encounters Date Type Department Care Team (Late st Contact Info) Description 07/06/2025 1:45 PM EST Office Visit [facility] [address] [place] [address] Luis Alberto Davey MD [address] [place] [address], [address] [place] [address] [email or web address] documented as of this encounter Visit Diagnoses Diagnosis Vertigo- Primary Dizziness and giddiness documented in this encounter Additional Health Concerns Assessment Noted Time PHQ-2 Depression Total Score: 0 07/04/20 22 1:20 PM EST documented as of this encounter Care Teams Cargo Bracer Relationship Specialty Start Date End Date Luis Alberto Davey MD [address] [place] [address], [address] [place] [address] [email or web address] PCP - General 05/19/17 Chloe Zaragoza CNP [address] [place] [address], [address] [place] [address] [email or web address] Historical LMR Provider 05/03/17 Edwin Burnette MD [address] [facility] [place] [address] Hospitalist 11/14/21 documented as of this encounter Additional Source Comments The information contained in this document represents components of the legal health record. It is not the complete legal health record.[facility]
--- OUTSIDE RECORDS SUMMARY | 2025-04-18 15:29 | XMS_ITS | Encounter Summary ---
Author Organization [facility] Address [address] [place] [address] Phone Care Team Providers Care Bottom Man Name Role Phone Luis Alberto Davey MD Unavailable [phone] Romie Arevalo MD Unavailable +[phone] Ann Snyder MD Unavailable [phone] ATTENDANT Unavailable [phone] Sandra Gross MD Unavailable +[phone] Miguel Solomon UTILITY TECH Unavailable +[phone] Day Chandra MD Unavailable +[phone] Bigg Caro MD Unavailable +[phone] Wilfred Jones UTILITY TECH Unavailable [phone] Jamaal Hernandez MD Unavailable +[phone] Chloe Zaragoza UTILITY TECH Unavailable [phone] Luis Alberto Davey MD Primary Care Provider + Edwin Burnette MD Unavailable [phone] Encounter Details Date Type Department Care Team (Late st Contact Info) Description 07/16/2018 Procedure Pass [place] Admitting Dept - Virtual Department [address] [place] [address] Social History Tobacco Use Types Packs/Day Years [...] Description 07/06/2025 1:45 PM EST Office Visit [address] [address] Luis Alberto Davey MD [address] [place] [address], [address] [place] [address] [email or web address] documented as of this encounter Visit Diagnoses Not on filedocumented in this encounter Additional Health Concerns Infection Onset Date Last Indicated Resolved Time CoV-Exposed Comment:Recent close contact documented in the COVID-19 PCR/PRO order 05/30/2021 06/06/2021 06/14/2021 1:[address] documented as of this encounter Care Teams Bottom Man Relationship Specialty Start Date End Date Luis Alberto Daevy MD [address] [place] [address], [address] [place] [address] PCP - General 05/19/17 Luis Alberto Davey MD [address] [place] [address], [address] [place] [address] Historical LMR Provider 05/03/17 2 Romie Arevalo MD [address] [place] [address], [address] [place] [address] Historical LMR Provider 05/03/17 07/21/21 Ann Snyder MD [address] [place] [address] [email or web address] Historical LMR Provider 05/03/17 07/21/21 Justo Gurrola NP [address] [place] [address] 2_[place] [address] [email or web address] Historical LMR Provider 05/03/17 07/21/21 Sandra Gross MD [address] [place] [address], [address] [place] [address] Historical LMR Provider 05/03/17 07/21/21 Miguel Solomon, UTILITY TECH [address] [place] [address], [address] [place] [address] Historical LMR Provider 05/03/17 07/21/21 Day Chandra MD [address] [place] [address], [address] [place] [address] Historical LMR Provider 05/03/17 Bigg Caro MD [address] [place] [address], [address] [place] [address] Historical LMR Provider 05/03/17 07/21/21 Wilfred Jones UTILITY TECH [address] [facility], 2nd [place] [address] [email or web address] Historical LMR Provider 05/03/17 07/21/21 Jamaal Hernandez MD [address] [facility] Floor 1 [place] [address] [email or web address] Historical LMR Provider 05/03/17 07/21/21 Chloe Zaragoza CNP [address] [facility], [address] [place] [address] [email or web address] Historical LMR Provider 05/03/17 Edwin Burnette MD [address] [facility] [place] [address] Hospitalist 11/14/21 documented as of this encounter Additional Source Comments The information contained in this document represents components of the legal health record. It is not the complete legal health record.[facility]
--- OUTSIDE RECORDS SUMMARY | 2025-04-18 15:29 | XMS_ITS | Encounter Summary ---
Author Organization [facility] Address [address] [place] [address] Phone Care Team Providers Care Sports Analyst Name Role Phone Chloe Zaragoza LEENA Unavailable [phone] Luis Alberto Davey MD Primary Care Provider [phone] Edwin Burnette MD Unavailable [phone] Reason for Visit * Reason Onset Date Comments Request For Order(s) 04/11/2025 MRI Encounter Details Date Type Department Care Team (Late st Contact Info) Description 04/11/2025 Telephone [facility] [address] [place], [place] [id number] Luis Alberto Davey MD [address] [facility], [address] [place], [place] [id number] [email or web address] Request For Order(s) (MRI ) Social History Tobacco Use Types Packs/Day Years Used Date Smoking Tobacco: Never Smokeless Tobacco: Never Alcohol Use Standard Drinks/Week Comments No 0 (1 standard drink = 0.6 oz pur e alcohol) Home Health Assessment: Transportation Answer Date Recorded Lack of Transportation (Medical) No 03/24/2024 Lack of Transportation (Non-Medical) No 03/24/2024 Patient Unable or Declines to Respond No 03/24/2024 Education Answer Date Recorded Are you interested in more education? Not on fernando e 11/11/2022 Are you concerned about learning? Not on file 11/11/2022 No 11/11/2022 No 11/11/2022 Food Answer Date Recorded Within the past 6 months we worried whether our food would run out before we got money to buy more. Never True 10/22/2024 Within the past 6 months the food we bought just didn't last and we didn't have enough money to get more. Never True Residential Stability Answer Date Recor ded What is your housing situation today? I have mike sing 10/22/2024 How many times have you move d in the past 12 months? Zero (I did not move) 10/22/2024 Paying for Meds Answer Date Recorded Do you have trouble paying for medicines? No 10/22/2024 Paying Utility Bills Answer Date Record ed Do you have trouble paying your heating or elect ricity bill? No 10/22/2024 Transportation Answer Date Recorded Has the lack of transportati on kept you from medical appointments or from getting medications? No 10/22/2024 Digital Access Answer Date Recorded No 10/22/2024 Yes 10/22/2024 Do you have reliable internet access at home? Ye s 10/22/2024 Do you have a device (e.g., phone, tablet, computer) with a working camera? Yes 10/22/2024 Intimate Partner Violence Answer Date R ecorded Are you denied basic needs s uch as food, clothing, or medical care? No 10/25/2024 In the past 12 months have y ou been in a relationship with a person who hurts, threatens, or tries to control you? No 10/25/2024 Are you denied basic needs s uch as food, clothing, or medical care? No 10/25/2024 In the past 12 months have y ou been in a relationship with a person who hurts, threatens, or tries to control you? No 10/25/2024 Sex and Gender Information Value Date Recorded Sex Assigned at Male 11/22/2021 7:59 PM EDT Legal Sex Male 5:13 PM EST Gender Identity Male 11/22/2021 7:59 PM EDT Sexual Orientation Straight 11/22/2021 7: 59 PM EDT documented as of this encounter Progress Notes * José Manuel Jane - 04/11/2025 12:30 PM EDT Pt called in stating he needs an order for an MRI of an artery in his chest faxed to [facility] for an appt he has on 04/19. Please contact and advise. Central Support Center Lead Consultant (Please do not reply to this user; this inbox is not monitored.) Thank you. documented in this encounter Plan of Treatment Upcoming Encounters Date Type Department Care Team (Late st Contact Info) Description 07/06/2025 1:45 PM EST Office Visit [facility] [address] [place] [address] Luis Alberto Davey MD [address] [facility], [address] [place] [address] documented as of this encounter Visit Diagnoses Not on filedocumented in this encounter Additional Health Concerns Assessment Noted Time PHQ-2 Depression Total Score: 0 04/16/20 24 9:55 AM EDT documented as of this encounter Care Teams Sports Analyst Relationship Specialty Start Date End Date Luis Alberto Davey MD [address] [facility], [address] [place] [address] PCP - General 05/19/17 Chloe Zaragoza CNP [address] [place] [address], [address] [place] [address] Historical LMR Provider 05/03/17 Edwin Burnette MD [address] [facility] [place] [address] Hospitalist 11/14/21 documented as of this encounter Additional Source Comments The information contained in this document represents components of the legal health record. It is not the complete legal health record.[facility]
--- OUTSIDE RECORDS SUMMARY | 2025-04-18 15:29 | XMS_ITS | Encounter Summary ---
Author Organization [facility] Address [address] [place] [address] Phone Care Team Providers Care Construction Administrator Name Role Phone Chloe Zaragoza LEENA Unavailable [phone] Luis Alberto Davey MD Primary Care Provider [phone] Edwin Burnette MD Unavailable [phone] Reason for Visit * Reason Onset Date Comments Referral 11/11/2022 Rectal Bleeding 11/11/2022 Encounter Details Date Type Department Care Team (Late st Contact Info) Description 11/11/2022 Telephone [facility] [address] [place] [address] Luis Alberto Davey MD [address] [facility], [address] [place], [place] [id number] [email or web address] Referral; Rectal Bleeding Social History Tobacco Use Types Packs/Day Years Used Date Smoking Tobacco: Never Smokeless Tobacco: Never Alcohol Use Standard Drinks/Week Comments No 0 (1 standard drink = 0.6 oz pur e alcohol) Education Answer Date Recorded Are you interested in more education? Not on fernando e 11/11/2022 Are you concerned about learning? Not on file 11/11/2022 No 11/11/2022 No 11/11/2022 Sex and Gender Information Value Date Recorded Sex Assigned at Male 11/22/2021 7:59 PM EDT Legal Sex Male 5:13 PM EST Gender Identity Male 11/22/2021 7:59 PM EDT Sexual Orientation Straight 11/22/2021 7: 59 PM EDT documented as of this encounter Progress Notes * Jenny Navarro - 11/12/2022 11:35 AM EDT Patient called and left a message stating he has been calling and has gotten no response about a urgent referral that he needs. Please contact and advise. * Toño Glover RN - 11/11/2022 12:01 PM EDT Per ED note: Category 2: Independent Interpretation Of Tests: Labs: Laboratory studies were interpreted. Normal H&H.. ?? The patient presents with rectal bleeding that appears related to an internal hemorrhoid, it appears to have stopped now, he is hemodynamically stable and has a normal H&H. At this point, I thinkthat he can be discharged home, will recommend stool softeners and gentle hygiene, can follow-up with GI or surgery if he has persistent problems with hemorrhoids, should return with heavy bleeding or new symptoms. ?? Attempted to call patient twice by phone, phone continued to ring for 3 minutes both times. * Jenny Navarro - 11/11/2022 11:41 AM EDT Patient left a message saying he needs a referral to a ears,nose and throat doctor. Please contact and advise, he has left several messages but not sure what he is referring to. * Zoraida Hopkins LPN - 11/11/2022 11:31 AM EDT Referral pended for review * Jenny Navarro - 11/11/2022 11:08 AM EDT Patient left a message stating he was in the ER and he needs a referral DELILAH. Please advise. documented in this encounter Plan of Treatment Upcoming Encounters Date Type Department Care Team (Late st Contact Info) Description 07/06/2025 1:45 PM EST Office Visit [address] [place] [address] Luis Alberto Davey MD [address] [place] [address], [address] [place] [address] documented as of this encounter Visit Diagnoses Not on filedocumented in this encounter Additional Health Concerns Assessment Noted Time PHQ-2 Depression Total Score: 0 07/04/20 22 1:20 PM EST documented as of this encounter Care Teams Construction Administrator Relationship Specialty Start Date End Date Luis Alberto Davey MD [address] [place] [address], [address] [place] [address] PCP - General 05/19/17 Chloe Zaragoza CNP [address] [place] [address], [address] [place] [address] Historical LMR Provider 05/03/17 Edwin Burnette MD [address] [facility] [place] [address] Hospitalist 11/14/21 documented as of this encounter Additional Source Comments The information contained in this document represents components of the legal health record. It is not the complete legal health record.[facility]
--- OUTSIDE RECORDS SUMMARY | 2025-04-18 15:29 | XMS_ITS | Encounter Summary ---
Author Organization [facility] Address [address] [facility] [address] [place] [address] Phone Care Team Providers Care Office Spec Name Role Phone EnioChloe decker DRAWING TENDER Unavailable [phone] Luis Alberto Davey MD Primary Care Provider [phone] Edwin Burnette MD Unavailable [phone] Encounter Details Date Type Department Care Team (Late st Contact Info) Description 11/15/2021 Procedure Pass [facility], [address] [place] [address] Social History Tobacco Use Types Packs/Day Years [...] PM EDT documented as of this encounter Last Filed Vital Signs Vital Sign Reading Time Taken Comments Blood Pressure - - Pulse - - Temperature - - Respiratory Rate - - Oxygen Saturation - - Inhaled Oxygen Concentration - - Weight 64.4 kg (142 lb) 11/16/2021 4:55 PM EDT Height 165.1 cm (5' 5 ) 11/16/2021 4:55 PM EDT Body Mass Index 23.63 11/16/2021 4:55 PM EDT documented in this encounter Plan of Treatment Upcoming Encounters Date Type Department Care Team (Late st Contact Info) Description 07/06/2025 1:45 PM EST Office Visit [facility] [address] [place] [address] Luis Alberto Davey MD [address] [place] [address], [address] [place] [address] [email or web address] documented as of this encounter Visit Diagnoses Not on filedocumented in this encounter Care Teams Office Spec Relationship Specialty Start Date End Date Luis Alberto Davey MD [address] [place] [address], [address] [place] [address] PCP - General 05/19/17 Chloe Zaragoza CNP [address] [place] [address], [address] [place] [address] Historical LMR Provider 05/03/17 Edwin Burnette MD [address] [facility] [place] [address] Hospitalist 11/14/21 documented as of this encounter Additional Source Comments The information contained in this document represents components of the legal health record. It is not the complete legal health record.[facility]
--- OUTSIDE RECORDS SUMMARY | 2025-04-18 15:29 | XMS_ITS | Encounter Summary ---
Author Organization [facility] Address [address] [place] [address] Phone Care Team Providers Care Wildlife Science Professor Name Role Phone Luis Alberto Davey MD Unavailable [phone] Romie Arevalo MD Unavailable +-[phone] Ann Snyder MD Unavailable Justo Gurrola GLASS ROBOT OPERATOR Unavailable [phone] Sandra Gross MD Unavailable +[phone] Miguel Solomon CLINICAL APPEALS SPECIALIST Unavailable +[phone] Day Chandra MD Unavailable [phone] Bigg Caro MD Unavailable [phone] Wilfred Jones CLINICAL APPEALS SPECIALIST Unavailable [phone] Jamaal Hernandez MD Unavailable +1-4 Chloe Zaragoza CLINICAL APPEALS SPECIALIST Unavailable [phone] Luis Alberto Davey MD Primary Care Provider + Edwin Burnette MD Unavailable [phone] Encounter Details Date Type Department Care Team (Late Contact Info) Description 03/22/2021 Procedure Pass [facility], [address] [facility] [address] [place] [address] Social History Tobacco Use Types Packs/Day Years [...] Date of Assessment Author No Risk Indicated 03/22/2021 4:44 AM EDT Vibha Reich, RALPH * [place] Suicide Severity Rating Scale (Screener/Recent Self-Report) Question Answer Date of Assessment Author 1. Wish to be (Past 1 Month) No 03/22/2021 4:44 AM EDT Karma Mancini, RN 2. Non-Specific Active Suici willie Thoughts (Past 1 Month) No 03/22/2021 4:44 AM EDT Iris Mancini, RALPH 6. Suicidal Behavior (Lifetime) No 4:44 AM EDT Vibha Mancini, RALPH documented as of this encounter Plan of Treatment Upcoming Encounters Date Type Department Care Team (Late Contact Info) Description 07/06/2025 1:45 PM EST Office Visit [address] [address] Luis Alberto Davey MD [address] [facility], [address] [place] [address] documented as of this encounter Visit Diagnoses Not on filedocumented in this encounter Additional Health Concerns Infection Onset Date Last Indicated Resolved Time CoV-Exposed Comment:Recent close contact documented in the COVID-19 PCR/PRO order 05/30/2021 06/06/2021 06/14/2021 1:[address] documented as of this encounter Care Teams Wildlife Science Professor Relationship Specialty Start Date End Date Luis Alberto Davey MD [address] [place] [address], [address] [place] [address] PCP - General 05/19/17 Luis Alberto Davey MD [address] [facility], [address] [place] [address] Historical LMR Provider 05/03/17 2 Romie Arevalo MD [address] [facility], [address] [place] [address] Historical LMR Provider 05/03/17 07/21/21 Ann Snyder MD [address] [place] [address] [email or web address] Historical LMR Provider 05/03/17 07/21/21 Justo Gurrola, MARYANNE [address] [place] [address] 2_[place] [address] [email or web address] Historical LMR Provider 05/03/17 07/21/21 Sandra Gross MD [address] [facility], 2nd [place] [address] Historical LMR Provider 05/03/17 07/21/21 Miguel Solomon, CLINICAL APPEALS SPECIALIST [address] [place] [address], [address] [place] [address] Historical LMR Provider 05/03/17 07/21/21 Day Chandra MD [address] [facility], 2nd [place] [address] Historical LMR Provider 05/03/17 Bigg Caro MD [address] [facility] [place] [address] Historical LMR Provider 05/03/17 07/21/21 Wilfred Jones CLINICAL APPEALS SPECIALIST [address] [place] [address], [address] [place] [address] Historical LMR Provider 05/03/17 07/21/21 Jamaal Hernandez MD [address] [facility] Floor [address] [place] [address] [email or web address] Historical LMR Provider 05/03/17 07/21/21 Chloe Zaragoza CNP [address] [facility], [address] [place] [address] Historical LMR Provider 05/03/17 Edwin Burnette MD [address] [facility] [place] [address] Hospitalist 11/14/21 documented as of this encounter Additional Source Comments The information contained in this document represents components of the legal health record. It is not the complete legal health record.[facility]
--- OUTSIDE RECORDS SUMMARY | 2025-04-18 15:29 | XMS_ITS | Encounter Summary ---
Author Organization [facility] Address [address] [facility] [address] [place] [address] Phone Care Team Providers Care Certified Paralegal Name Role Phone Luis Alberto Davey MD Unavailable +[phone] Romie Arevalo MD Unavailable +-[phone] Ann Snyder MD Unavailable [phone] Unavailable [phone] Sandra Gross MD Unavailable +[phone] Miguel Solomon LEVEL VIAL SETTER Unavailable +[phone] Day Chandra MD Unavailable +[phone] Bigg Caro MD Unavailable +[phone] Wilfred Jones LEVEL VIAL SETTER Unavailable [phone] Jamaal Hernandez MD Unavailable +1-4 Chloe Zaragoza LEVEL VIAL SETTER Unavailable [phone] Luis Alberto Davey MD Primary Care Provider + Edwin Burnette MD Unavailable [phone] Encounter Details Date Type Department Care Team (Late st Contact Info) Description 06/30/2017 Procedure Pass [facility] Endoscopy Admitting Dept Virtual Department 30 [place] [address] Social History Tobacco Use Types Packs/Day Years [...] Description 07/06/2025 1:45 PM EST Office Visit [facility] 22 [place] [address] Luis Alberto Davey MD [address] [place] [address], [address] [place] [address] [email or web address] documented as of this encounter Visit Diagnoses Not on filedocumented in this encounter Additional Health Concerns Infection Onset Date Last Indicated Resolved Time CoV-Exposed Comment:Recent close contact documented in the COVID-19 PCR/PRO order 05/30/2021 06/06/2021 06/14/2021 1:[address] documented as of this encounter Care Teams Certified Paralegal Relationship Specialty Start Date End Date Luis Alberto Davey MD [address] [place] [address], [address] [place] [address] PCP - General 05/19/17 Luis Alberto Davey MD [address] [place] [address], [address] [place] [address] Historical LMR Provider 05/03/17 2 Romie Arevalo MD [address] [place] [address], [address] [place] [address] Historical LMR Provider 05/03/17 07/21/21 Ann Snyder MD [address] [place] [address] [email or web address] Historical LMR Provider 05/03/17 07/21/21 Justo Gurrola NP [address] [place] [address] 2[facility] [address] [email or web address] Historical LMR Provider 05/03/17 07/21/21 Sandra Gross MD [address] [place] [address], [address] [place] [address] Historical LMR Provider 05/03/17 07/21/21 Miguel Solomon, LEVEL VIAL SETTER [address] [place] [address], [address] [place] [address] Historical LMR Provider 05/03/17 07/21/21 Day Chandra MD [address] [place] [address], [address] [place] [address] Historical LMR Provider 05/03/17 Bigg Caro MD [address] [place] [address], [address] [place] [address] Historical LMR Provider 05/03/17 07/21/21 Wilfred Jones LEVEL VIAL SETTER [address] [facility], 2nd [place] [address] [email or web address] Historical LMR Provider 05/03/17 07/21/21 Jamaal Hernandez MD 22 [facility] Floor 1 [place] [address] [email or web address] Historical LMR Provider 05/03/17 07/21/21 Chole Zaragoza CNP 22 [facility], [address] [place] [address] [email or web address] Historical LMR Provider 05/03/17 Edwin Burnette MD [address] [facility] [place] [address] Hospitalist 11/14/21 documented as of this encounter Additional Source Comments The information contained in this document represents components of the legal health record. It is not the complete legal health record.[facility]
--- OUTSIDE RECORDS SUMMARY | 2025-04-18 15:29 | XMS_ITS | Encounter Summary ---
Author Organization [facility] Address [address] [facility] [address] [place] [address] Phone Care Team Providers Care Waredresser Name Role Phone Luis Alberto Davey MD Unavailable +[phone] Romie Arevalo MD Unavailable +-58 Ann Snyder MD Unavailable [phone] Justo Gurrola DISPATCHER RADIO Unavailable [phone] Sandra Gross MD Unavailable +[phone] Miguel Solomon RECEIVABLES SPECIALIST Unavailable +1-41 Day Chandra MD Unavailable [phone] Bigg Caro MD Unavailable +[phone] Wilfred Jones RECEIVABLES SPECIALIST Unavailable [phone] Jamaal Hernandez MD Unavailable +1-4 Chloe Zaragoza RECEIVABLES SPECIALIST Unavailable [phone] Luis Alberto Davey MD Primary Care Provider + Edwin Burnette MD Unavailable [phone] Encounter Details Date Type Department Care Team (Late st Contact Info) Description 06/30/2017 Procedure Pass [facility] Endoscopy Admitting Dept Virtual Department 30 [place] [address] Social History Tobacco Use Types Packs/Day Years [...] Description 07/06/2025 1:45 PM EST Office Visit [facility] 22 [place] [address] Luis Alberto Davey MD [address] [place] [address], [address] [place] [address] [email or web address] documented as of this encounter Visit Diagnoses Not on filedocumented in this encounter Additional Health Concerns Infection Onset Date Last Indicated Resolved Time CoV-Exposed Comment:Recent close contact documented in the COVID-19 PCR/PRO order 05/30/2021 06/06/2021 06/14/2021 1:[address] documented as of this encounter Care Teams Waredresser Relationship Specialty Start Date End Date Luis Alberto Davey MD [address] [place] [address], [address] [place] [address] PCP - General 05/19/17 Luis Alberto Davey MD [address] [place] [address], [address] [place] [address] Historical LMR Provider 05/03/17 2 Romie Arevalo MD [address] [place] [address], [address] [place] [address] Historical LMR Provider 05/03/17 07/21/21 nAn Snyder MD [address] [place] [address] [email or web address] Historical LMR Provider 05/03/17 07/21/21 Justo Gurrola NP [address] [place] [address] 2_[place] [address] [email or web address] Historical LMR Provider 05/03/17 07/21/21 Sandra Gross MD [address] [place] [address], [address] [place] [address] Historical LMR Provider 05/03/17 07/21/21 Miguel Solomon, RECEIVABLES SPECIALIST [address] [place] [address], [address] [place] [address] Historical LMR Provider 05/03/17 07/21/21 Day Chandra MD [address] [place] [address], [address] [place] [address] Historical LMR Provider 05/03/17 Bigg Caro MD [address] [place] [address], [address] [place] [address] Historical LMR Provider 05/03/17 07/21/21 Wilfred Jones RECEIVABLES SPECIALIST 15 [facility], 2nd [place] [address] [email or web address] Historical LMR Provider 05/03/17 07/21/21 Jamaal Hernandez MD 22 [facility] Floor 1 [place] [address] [email or web address] Historical LMR Provider 05/03/17 07/21/21 Chloe Zaragoza CNP 22 [facility], [address] [place] [address] [email or web address] Historical LMR Provider 05/03/17 dEwin Burnette MD [address] [facility] [place] [address] Hospitalist 11/14/21 documented as of this encounter Additional Source Comments The information contained in this document represents components of the legal health record. It is not the complete legal health record.[facility]
--- OUTSIDE RECORDS SUMMARY | 2025-04-18 15:29 | XMS_ITS | Encounter Summary ---
Author Organization [facility] Address [address] [facility] [address] [place] [address] Phone Care Team Providers Care Stress Test Technician Name Role Phone EnioDeyanira deckeralana STERN Unavailable [phone] Luis Alberto Davey MD Primary Care Provider Edwin Burnette MD Unavailable [phone] Encounter Details Date Type Department Care Team (Late st Contact Info) Description 10/25/2024 Procedure Pass [facility] Endoscopy Admitting Dept Virtual Department 30 [place] [address] Social History Tobacco Use Types Packs/Day Years [...] Description 07/06/2025 1:45 PM EST Office Visit [facility] [address] [place] [address] [place] [address] Luis Alberto Davey MD [address] [place] [address], [address] [place] [address] documented as of this encounter Visit Diagnoses Not on filedocumented in this encounter Additional Health Concerns Assessment Noted Time PHQ-2 Depression Total Score: 0 04/16/20 24 9:55 AM EDT documented as of this encounter Care Teams Stress Test Technician Relationship Specialty Start Date End Date Luis Alberto Davey MD [address] [place] [address], [address] [place] [address] PCP - General 05/19/17 Chloe Zaragoza CNP [address] [place] [address], [address] [place] [address] Historical LMR Provider 05/03/17 Edwin Burnette MD [address] [facility] [place] [address] Hospitalist 11/14/21 documented as of this encounter Additional Source Comments The information contained in this document represents components of the legal health record. It is not the complete legal health record.[facility]
--- OUTSIDE RECORDS SUMMARY | 2025-04-18 15:29 | XMS_ITS | Encounter Summary ---
Author Organization [facility] Address [address] [facility] [address] [place] [address] Phone Care Team Providers Care Felt Coverer Name Role Phone Chloe Zaragoza LEENA Unavailable [phone] Luis Alberto Davey MD Primary Care Provider Edwin Burnette MD Unavailable [phone] Reason for Visit * Reason Onset Date Comments Medication Refill 04/11/2025 Clonazepam 1 m g tab Encounter Details Date Type Department Care Team (Late st Contact Info) Description 04/11/2025 Refill [facility] Medicine [address] [place] [phone] Luis Alberto Davey MD [address] [facility], [address] [place], [place] [phone] [email or web address] Medication Refill (Clonazepam 1 mg tab) Social History Tobacco Use Types Packs/Day Years [...] as of this encounter Progress Notes * Sandra Hopkins MA - 04/11/2025 1:55 PM EDT Images from the original note were not included. Rx Care Gap Status - Instructions for Clinical Staff (prescriber discretion applies): > Mismatch review guide > Check PDMP for all controlled medication requests. Visit Info Last visit: 03/10/2025 Luis Alberto Davey MD - [facility] > Requested f/u: Not specified Upcoming visit: 04/18/2025 Luis Alberto Davey MD - [facility] ACTIONS TAKEN BY Sandra Hopkins MA - Criteria met. - Checked PDMP/[place]. Non-Opioid Controlled Substance With PDMP Rx Protocol - clonazepam Renewal is at prescriber discretion. Visit in the past 12 months: Yes * Jane Georges - 04/11/2025 12:33 PM EDT Pt called in to request a refill of clonazepam 1 mg tab be sent to [facility] in [place]. Please contact and advise. Central Support [employer] Developer (Please do not reply to this user; this inbox is not monitored.) Thank you. 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 documented in this encounter Additional Health Concerns Assessment Noted Time PHQ-2 Depression Total Score: 0 04/16/20 24 9:55 AM EDT documented as of this encounter Care Teams Felt Coverer Relationship Specialty Start Date End Date Luis Alberto Davey MD [address] [facility], [address] [place] [address] PCP - General 05/19/17 Chloe Zaragoza CNP [address] [facility], [address] [place] [address] [email or web address] Historical LMR Provider 05/03/17 Edwin Burnette MD [facility] [place] [address] Hospitalist 11/14/21 documented as of this encounter Additional Source Comments The information contained in this document represents components of the legal health record. It is not the complete legal health record.[facility]
--- OUTSIDE RECORDS SUMMARY | 2025-04-18 15:29 | XMS_ITS | Encounter Summary ---
Author Organization [facility] Address [address] [facility] [address] [place] [address] Phone Care Team Providers Care Network Infrastructure Architect Name Role Phone Chloe Zaragoza HEAD MIXER Unavailable [phone] Luis Alberto Davey MD Primary Care Provider [phone] Edwin Burnette MD Unavailable [phone] Reason for Visit * Reason Onset Date Comments Triage 10/21/2024 Red+rectal bleed ing Encounter Details Date Type Department Care Team (Late st Contact Info) Description 10/21/2024 Nurse Triage [address] [place], [place] [phone] Luis Alberto Davey MD 22 [facility], [address] [place], [place] [phone] [email or web address] Triage (Red+rectal bleeding) Social History Tobacco Use Types Packs/Day Years [...] Date of Assessment Author No Risk Indicated 10/22/2024 11:57 AM EDT Natanael Harris RN * [place] Suicide Severity Rating Scale (Screener/Recent Self-Report) Question Answer Date of Assessment Author 1. Wish to be (Past 1 Month) No 10/22/2024 11:57 AM DAMARIST Natanael Harris RN 2. Non-Specific Active Suicidal Thoughts (Past 1 Month) No 10/22/2024 11:57 AM DAMARIST Natanael Harris RN 6. Suicidal Behavior (Lifetime) No 10/22/2024 11:57 AM EDT Natanael Harris RN documented as of this encounter Progress Notes * Maria Fernanda Alexis RN - 10/27/2024 11:41 AM EDT This is not a TCM appointment- patient was seen at [facility] ED 10/22 and underwent an outpatient sigmoidoscopy on 10/25. If he is having symptoms that necessitate a sooner visit, please document these & return to triage. Otherwise, it is clinically appropriate to follow up in the next available slot with PCP. He can also contact GI. * Mani Mcdonald - 10/27/2024 11:33 AM EDT Transitional Care Management New Patient: YES/NO: no Hospitalization Name: [facility] Discharge Date: 10/25/2024 Reason for Visit+ Diagnosis: surgery Is the discharge summary in patient chart:YES/NO: yes If not did you inform the patient/patient advocate to fax it to the office: Please inform the patient/patient advocate to fax and bring a copy to the appt. Appointment Date: tbd Is the appt: Awareness: Appt need to be schedule with in 2 to 14 calendar days from discharge date Additional Note (if applicable): Pt declined next available on 11/05, said he needs to be see sooner. [facility] Call Center CSS Agent (Please do not reply to this user, as this inbox is not monitored. Thank you.) Thank you. * Luis Alberto Davey MD - 10/22/2024 4:25 PM EDT Noted * Treva Ray RN - 10/22/2024 3:51 PM EDT Spoke daughter. He spoke with Dr. Neal and did go to the ED. They did his blood counts and he is scheduled surgery for Friday for re-banding. Sent to PCP to review. * Treva Ray RN - 10/22/2024 11:37 AM EDT There are no openings today. Pended CBC order. Will call once lab order signed. * Luis Alberto Davey MD - 10/22/2024 11:16 AM EDT If openings today will see him. Grandson is an emt, perhaps could check his bp/pulse to be sure nothypotensive with blood loss. Cbc could help also. * Treva Ray RN - 10/22/2024 10:26 AM EDT Spoke with patient. There is no end to what is going on here. I need to see the doctor to see whatis going on here. I released on the floor last night and this morning during a routine bowel movement the toilet was filled with blood. I need to talk to a doctor. The first 2 previous bandings of his hemorrhoids he never had these complications. I never lost blood with the others. He did speak with Dr. Neal yesterday and at his best, he told me to get off of the fish oil and the aspirin. It is endangering my life. He has not called Dr. Neal today. Advised to call Dr. Neal as he is the provider who is actively treating his hemorrhoids or go to the ED if he is symptomatic (lightheaded, weak). Well I will follow your suggestion. It does not give me any encouragement. The door is closed where we are right now. Notified this will be sent to Dr. Davey. * Deidre Rowan - 10/22/2024 10:22 AM EDT Patient called in regarding this stating he is still losing a lot of blood. Please contact and advise. Central Support Commercial Singer (Please do not reply to this user; this inbox is not monitored.) Thank you. * Treva Ray RN - 10/21/2024 1:43 PM EDT Notified patient this caller spoke with [facility] and they stated the patient was advised to go to the ED. Patient became upset. That is how stupid the system is. The last time this happened I was told thesame thing to go to the ED. I went to the Ed and they told me to see the doctor who did the procedure. It cost me a $1,000. Patient is not going to go to the ED. We will let it play out . He will wait for call back from Dr. Neal. * Treva Ray RN - 10/21/2024 1:42 PM EDT Spoke with Latoya at [facility]. Dr. Neal is doing scopes all day. A message has been sent to him. Dr. Neal advised him to go to the ED if he is hemorrhaging. Latoya will send another notice to Dr. Neal. * Treva Ray RN - 10/21/2024 11:43 AM EDT Awaiting transfer from call center. Called and spoke with daughter (Patricia/on reg and consent). Notified of call from her father. She is not with him and not aware he called. Patient's call was transferred from call center. On 10/18/24 he states he had a banding of a hemorrhoid by Dr. Neal. Yesterday he noticed a marble size thing pass from his rectum and thought it was the band coming off. Right after when he stood up he started to hemorrhage . There was a large pool of blood on the floor. Every time he goes to the bathroom he notes blood. He has gone through so many pairs of underwear. This morning when he got up the same thing happened. There was large pool of blood on the floor and he continues to stain his underwear. No pain. No weakness. No dizziness. States he called Dr. Neal twice this morning and has not heard back from him. Advised this caller will call [facility] and will call him back. * Eva Glaser - 10/21/2024 11:36 AM EDT [facility] PEN Top Smart Phrases: Red Yellow Green Guidelines Select Red, Yellow, Green Triage Intake *Route to appropriate staff member/pool according to practice guidelines* Red Call Intake Call Back Number: (if not patient, name/relationship and if patient is with caller) [phone] Red Symptom(s): Rectal bleeding When did these symptoms start? 10/18/24 Have you ever experienced these symptoms before? YES Additional information: Pt had procedure on 10/18/24 bandaide for Hemorids, the bleeding slowed down and now pt states he is hemorrhaging. Transfer LIVE call to RN for prompt triage Reason for Call = TRIAGE Comment = RED + symptom Route TE directly to the RN receiving the warm transfer, NOT the nursing pool documented in this encounter Plan of Treatment Upcoming Encounters Date Type Department Care Team (Late st Contact Info) Description 07/06/2025 1:45 PM EST Office Visit [address] [place] [address] Luis Alberto Davey MD [address] [place] [address], [address] [place] [address] Scheduled Orders Name Type Priority Associated Diagnoses Orde r Schedule CBC Lab Routine Rectal bleeding Expected: 10/22/2024, Expires: documented as of this encounter Visit Diagnoses Diagnosis Rectal bleeding- Primary Hemorrhage of rectum and anus documented in this encounter Additional Health Concerns Assessment Noted Time PHQ-2 Depression Total Score: 0 04/16/20 24 9:55 AM EDT documented as of this encounter Care Teams Network Infrastructure Architect Relationship Specialty Start Date End Date Luis Alberto Davey MD 22 [facility], [address] [place] [address] [email or web address] PCP - General 05/19/17 Chloe Zaragoza CNP [address] [place] [address], [address] [place] [address] Historical LMR Provider 05/03/17 [place] [address] [place] [address] Internal [place] [address] Hospitalist 11/14/21 documented as of this encounter Additional Source Comments The information contained in this document represents components of the legal health record. It is not the complete legal health record.[facility]
--- OUTSIDE RECORDS SUMMARY | 2025-04-18 15:30 | XMS_ITS | Clinical Summary ---
Author Organization [facility] Address [address] [facility] [address] [place] [address] Phone Care Team Providers Care Drive Thru Order Taker Name Role Phone Mila Chloe STERN Unavailable [phone] Prema Demarco MD Primary Care Provider [phone] Edwin Burnette MD Unavailable [phone] Allergies Active Allergy Reactions Criticality Noted Date Comments Pollen Extracts Sneezing 09/18/2023 Medications aspirin 81 mg chewable tablet Take 81 mg by mouth daily. Active omega-3 fatty acids-fish oil 340-1,000 mg Cap Take 340 mg by mouth daily. Active cholecalciferol (VITAMIN D3) 2,000 unit capsule Take 2,000 Units by mouth daily. 08/05/19 14 Active fluticasone propionate (CUTIVATE) 0.05 % cream Apply topically as needed. 60 g 1 06/09/20 23 Active albuterol 90 mcg/actuation inhaler INHALE 2 PUFFS INTO THE LUNGS EVERY 6 HOURS NEEDED FOR WHEEZE 18 g 07/24/19 24 Active rosuvastatin (CRESTOR) 40 MG tabletIndicatio ns:Medication refill TAKE 1 TABLET BY MOUTH EVERY DAY 90 tablet 3 09/21/19 25 Active hydrocortisone acetate (ANUSOL-HC) [address] 1 suppository (25 mg total) rectally 2 (two) times a day. 12 suppository 10/23/19 25 Active omeprazole (PRILOSEC) 20 MG capsuleIndicati ons:Esophageal stricture TAKE 1 CAPSULE (20 MG TOTAL) BY MOUTH EVERY OTHER DAY. 45 capsule 3 12/21/19 25 Active sildenafiL (VIAGRA) 25 mg tabletIndicatio ns:Erectile dysfunction, unspecified erectile dysfunction type Take 1 tablet (25 mg total) by mouth daily as needed (erectile dysfunction). 30 tablet 03/10/20 25 Active clonazePAM (KLONOPIN) 1 MG tabletIndicatio ns:Primary insomnia Take 1 tablet (1 mg total) by mouth nightly at bedtime as needed for anxiety. 90 tablet 04/13/20 25 Active clonazePAM (KLONOPIN) 1 MG tabletIndicatio ns:Primary insomnia Take 1 tablet (1 mg total) by mouth nightly at bedtime as needed for anxiety. 90 tablet 01/13/20 25 025 Discontin ued(Reord er) Active Problems Problem Noted Date Diagnosed Date Skin lesion of chest wall 10/16/2023 Assessment & Plan (10/16/2023 12:33 PM EDT): Likely seborrheic keratosis has several other lesions to address with dermatology. Referral placed. 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 Morel Assessment & Plan (04/18/2024 6:51 PM EDT): Stable, doing well, followed by annually. Vasculogenic erectile dysfunction 04/29/2023 Assessment & Plan (04/16/2024 10:03 AM EDT): Has not tried it yet, advised to try low dose. Call if ineffective. Assessment & Plan (04/29/2023 6:53 PM EDT): SEs of PDE5 inhibitors discussed. Recommend trial of low dose sildenafil. Call if ineffective. Exertional dyspnea 05/03/2022 Assessment & Plan (05/05/2022 8:34 PM EDT): Pt is advised to follow up with Dr. Burnette for exertional dyspnea, rule out coronary disease Lightheadedness 11/20/2021 Assessment & Plan (11/20/2021 3:12 PM EDT): Episodes sounds most likely related to vertigo than an underlying arrhythmia. 2 weeks loop monitor to r/o an underlying arrhythmia. Chronic low back pain with bilateral sciatica Assessment & Plan (12/05/2020 5:28 PM EDT): Chronic low back pain flareups. This is can be more challenging long-term. He may have bouts of significant flareups requiring anti-inflammatories or stronger pain medications. He did not seem to find the physical therapy though it may be worth another try. I recommended to measure size that he do on a regular basis so far as stretching as a preventative strategy. Esophageal stricture 06/04/2017 Assessment & Plan (05/05/2022 8:35 PM EDT): Omeprazole for stricture prevention. Chronic seasonal allergic rhinitis 06/04/2017 Assessment & Plan (11/01/2024 3:07 PM EDT): - Advised to try Flonase nasal spray for symptom relief. - Prescription for Flonase nasal spray provided. GERD (gastroesophageal reflux disease) 7 Assessment & Plan (04/16/2024 10:08 AM EDT): Stable, continue current regimen. Assessment & Plan (09/21/2023 8:00 PM EDT): Reassuring exam, likely GERD. Avoid food triggers, continue omeprazole. Reassess if worsenign, no better in 4 weeks. Patient expresses understanding and agrees with plan. All questions were answered satisfactorily. Assessment & Plan (03/23/2021 5:56 PM EDT): Home regimen includes omeprazole Switch to p.o. Protonix in place of his home omeprazole now the diet has been advanced. Assessment & Plan (07/15/2018 3:32 PM EST): Continue PPI H/O adenomatous polyp of colon 06/04/2017 Assessment & Plan (04/29/2018 10:27 AM EDT): Normal colonoscopy [place] [address] Galindo. Hypercholesterolemia 06/04/2017 Assessment & Plan (04/16/2024 9:54 AM EDT): Stable, continue current regimen. Assessment & Plan (10/16/2023 12:33 PM EDT): Stable on rosuvastatin, check lipids. Assessment & Plan (04/29/2023 6:51 PM EDT): Stable, continue current regimen. Assessment & Plan (07/05/2022 7:52 AM EST): Stable on rosuvastatin, continue current regimen. Assessment & Plan (01/06/2020 9:18 AM EDT): LDL is reasonable, 127 mg/dL, continue statin. Assessment & Plan (07/15/2018 3:35 PM EST): Continue statin Mild intermittent asthma with acute exacerbation 06/04/2017 Osteoporosis 06/04/2017 Restless leg syndrome 06/04/2017 Assessment & Plan (11/01/2024 3:07 PM EDT): - Symptoms may be due to decreased physical activity, expected to be temporary. - Advised to try magnesium supplements. - Prescription for magnesium provided. Assessment & Plan (04/29/2023 6:52 PM EDT): Report of achy legs today, likely RLS, recommend calcium/mag supplement before bed. He may consider low dose ropinirole if ineffective. Assessment & Plan (03/23/2021 5:58 PM EDT): Patient takes clonazepam at home at night for restless leg syndrome. Restart home clonazepam 1 mg as needed nightly for restless legs Insomnia 06/04/2017 Assessment & Plan (04/16/2024 9:55 AM EDT): Tolerating clonazepam for sleep, PDMP reviewed. Assessment & Plan (10/16/2023 12:34 PM EDT): Chronic insomnia, managed with clonazepam. He is tolerating medication. PDMP reviewed. Continue current management. There is some component of anxiety as well affecting his sleep. Eczema 06/04/2017 Diverticulosis of duodenum without diverticuliti s 06/04/2017 Depression 06/04/2017 Status post percutaneous abdominal aortic aneury sm repair 06/04/2017 Assessment & Plan (04/18/2024 6:52 PM EDT): Stable, followed by Dr. Morel annually. 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 Given size, recommend consult with cardiovascular pending results. 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 Atkinson for consultation to address management options. 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 Morel. He states that [facility] will be following up with his repeat scans. Have given him the fax number to our office to make sure that [facility] sends over the reports to his scans so that we have them for our records. 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 Morel. Most recent note from cardiology requested. Retroactive consult sent for his recent cardiology visit. BPH with elevated PSA 05/22/2011 Overview (06/04/2017): Benign prostatic hyperplasia Assessment & Plan (04/18/2024 6:51 PM EDT): Stable voiding pattern. Assessment & Plan (07/05/2022 7:53 AM EST): May benefit from sildenafil, for erectile dysfunction associated BPH. Resolved Problems Problem Noted Date Diagnosed Date Resolved Date Cellulitis 03/13/2024 04/16/2024 Assessment & Plan (03/13/2024 4:57 PM EDT): -Patient reports foot pain started on 03/08 after wearing a pair of boots he has not worn in a while. Pain and redness persisted and 03/11 he was seen by his PCP and started on antibiotics, erythema has spread since then -There was a question of possible foreign object like a splinter, xray did not show this -Follow up MRI foot -Trend inflammatory markers -Start antibiotics with vanco and rocephin for now, MRSA screen -Follow up surgery consult Cellulitis of foot 03/11/2024 Assessment & Plan (03/11/2024 5:48 PM EDT): Sudden onset of foot pain and swelling after wearing hiking boots. Redness, tenderness, and a small blister present. A small foreign body (possible splinter) was removed. The rapid onset and presence of a foreign body suggest a possible infection. -Start Cephalexin four times a day for five days. -Advise to take antibiotics with a little bit of food. -Check labs for uric acid and inflammatory markers to rule out gout. -Advise to use Tylenol or ibuprofen for pain control -Follow-up in one week to assess improvement. Small bowel obstruction 03/22/202110/2023 Assessment & Plan (03/30/2021 11:26 AM EDT): Due to adhesions, 2nd episode, resolved with conservative measures. Assessment & Plan (03/23/2021 5:56 PM EDT): Etiology: Anticipate that this SBO is likely due to the patient's adhesions from prior surgeries, patient has had SBO before, previously resolved with conservative management. Patient has had surgery with Dr. Chandra and Dr. Ureña in the past. NG tube successfully placed in afternoon, continued to suction overnight, symptoms improved Plan: Surgery consultation appreciated Electrolytes stable, discontinue IV fluids, start clear liquids Monitor for tolerance of clear liquids, encourage ambulation and bowel movement Pain control not needed currently, patient asymptomatic, if worsening, then can start pain meds. If able to advance diet tomorrow, anticipate patient may be discharged ready in the next 1 to 2 days Electrolyte abnormality 07/16/201810/2018 Assessment & Plan (07/16/2018 4:29 PM EST): Mildly low hypo-kalemia 3.2, hypo-mag at 1.5, and phosphatemia 2.6. Will replace via IV/p.o. Recheck tomorrow. Bacteremia 07/16/2018 05/03/2019 Assessment & Plan (07/17/2018 9:50 PM EST): Patient was found to have 1 out of 4 bottle gram-negative kay resulting to be E. coli. Suspected due to his acute cholecystitis. Repeated blood cultures are no growth to date. Continue Zosyn as above. Acute cholecystitis 07/15/2018 05/03/20 19 Assessment & Plan (07/17/2018 9:53 PM EST): Patient was recently discharged for small bowel obstruction but woken up with acute right upper quadrant. Ultrasound of the right upper quadrant demonstrated sludge in moderate wall thickening. Suspected due to biliary colic, though no anemia or transaminitis. Initially plan for HIDA scan, but after evaluation by Dr. Ureña laparoscopic cholecystectomy on July 16. Patient tolerated surgery well, no complications. Minimal blood loss ~50cc. Per Dr. Ureña, if tolerating liquid, may advance as tolerated. -adv as tolerated -Continue pain control and antiemetics -Continue Zosyn, plan to transition to levaquin for total 2 weeks if repeat blood cx are neg. -discussed case with Dr. Ureña. Fever 07/13/2018 05/03/2019 Assessment & Plan (07/13/2018 5:19 PM EST): - chest xray today - if temp > 38.3 C would get urine and blood ctx, cont to monitor for now SBO (small bowel obstruction) 07/11/2018 05/03/2019 Assessment & Plan (11/02/2018 8:36 AM EDT): Improving clinically --Continue bowel rest, IV fluids --Surgical consult pending. Family requesting Dr Ureña --If continued improvement, likely can clamp NG tube and monitor response Assessment & Plan (07/13/2018 5:17 PM EST): - NG out, trial clear diet - Dr. Ureña following - cont ppi for gi prophylaxis - resume home oral meds BRBPR (bright red blood per rectum) 07/11/2018 05/03/2019 Assessment & Plan (07/13/2018 5:18 PM EST): - does not seem to have active bleeding Elevated pancreatic enzyme 06/04/2017 1 Encounters Date Type Department Care Team Description 04/11/[address] [place] [address] Prema Demarco MD Medication Refill (Clonazepam 1 mg tab) 04/11/[address] [place] [address] Prema Demarco MD Request For Order(s) (MRI ) 03/10/2025 1:30 PM EDT Office Visit [address] [place] [address] Prema Demarco MD Malaise and fatigue (Primary Dx); Abscess of buttock, right; Erectile dysfunction, unspecified erectile dysfunction type 03/07/2025 Telephone [facility] [address] [place] [address] Prema Demarco MD Triage (Green+Discuss energy levels) from Last 3 Months Immunizations Immunization Administration Dates Next Due COVID-19 (Pre-05/05) Moderna Vaccine, mRNA, PF 09/13/2020,08/16/2020 COVID-19 (Pre-05/05) Pfizer Vaccine, Bivalent 12+ 04/03/2022 Influenza High-Dose Quadriva lent Preservative Free IM 04/26/2022,04/15/2022,04/18/2021 Influenza High-Dose Trivalen t Preservative Free IM 05/03/2019,04/29/2018,03/26/2017,04/10,04/14/2015,04/01/2014,04/13/2013 ,05/07/2012,04/11/2011 Influenza Quadrivalent Adjuv anted Preservative Free IM 04/21/2023 Influenza Trivalent Adjuvant ed Preservative free IM 04/07/2024 Pneumococcal conjugate PCV13 07/19/2014 Pneumococcal polysaccharide PPSV23 10/16/2016, Td (adult) 5 Lf Tetanus Toxo id, PF, Adsorbed 05/01/2007 Tdap 12/22/2012 Zoster live 05/27/2009 Zoster recombinant 10/23/2020,05/30/2020 Family History Medical History Relation Comments Stroke Father 2 CV disease Mother 2 Cancer Mother 2 Relation Status Comments Father 1 Father 2 Mother 1 Mother 2 Social History Tobacco Use Types Packs/Day Years Used Date Smoking Tobacco: Never Smokeless Tobacco: Never Tobacco Cessation:Counseling Given: Not Answered Alcohol Use Standard Drinks/Week Comments No 0 [...] your housing situation today? I have mike soto 10/22/2024 How many times have you move [...] Orientation Straight 11/22/2021 7: 59 PM EDT Last Filed Vital Signs Vital Sign Reading Time Taken Comments Blood Pressure 102/58 03/10/2025 1:18 PM EDT Pulse 79 03/10/2025 1:18 PM EDT Temperature 37 C (98.6 F) 03/10/2025 1:18 PM EDT Respiratory Rate 19 10/25/2024 7:47 AM EDT Oxygen Saturation 97% 03/10/2025 1:18 PM EDT Inhaled Oxygen Concentration - - Weight 63.5 kg (140 lb) 03/10/2025 1:18 PM EDT Height 162.6 cm (5' 4.02 ) 03/10/2025 1:18 PM ED T Body Mass Index 24.02 03/10/2025 1:18 PM EDT Plan of Treatment Upcoming Encounters Date Type Department Care Team (Late st Contact Info) Description 07/06/2025 1:45 PM EST Office Visit [facility] [address] [place] [address] Prema Demarco MD [address] [facility] [place] [address] [email or web address] Health Maintenance Due Date Last Done Comments RSV VACCINE (1 - 1-dose 75+ series) 09/22/2010 Adult Td,Tdap Booster 12/22/2022 12/22/2012, 007 INFLUENZA VACCINE (#1) 2025 , 04/21/2023, 04/26/2022, Additional history exists COVID-19 VACCINE ( season) 2025 04/07/2024, 04/29/2023, 04/03/2022, Additional history exists DEPRESSION SCREENING 04/16/2025 04/16/2024 PNEUMOCOCCAL VACCINES (50+ years) Completed 10/16/2016, 07/19/2014, 04/13/2008 ZOSTER VACCINES Completed 10/23/2020, 05/14, 05/27/2009 HEPATITIS A VACCINES Aged Out No long er eligible based on patient's age to complete this topic HIB VACCINES Aged Out No longer eligi ble based on patient's age to complete this topic MENINGOCOCCAL VACCINES (ACWY) Aged Out No longer eligible based on patient's age to complete this topic MENINGOCOCCAL VACCINES (B) Aged Out N o longer eligible based on patient's age to complete this topic Medical Devices Implanted Type Area Unarmed Security Officer Device Identifier Shelf Expiration Date Model / Serial / Lot Cardiac Stent Insurance [employer] REPLACEMENT MEDICARE PART A & B [employer] MEDICARE PART A & B [employer] REPLACEMENT [employer] REPLAC[employer] MEDICARE PART A & B [employer] RE[employer] MEDICARE PART A & B MEDICARE PART A & B MEDICARE PART A & B Advance Directives For more information, please contact: [phone] (9AM - 5PM [facility], Friday-Friday) Documents on File Type Date Recorded 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 Healthcare Proxy 03/29/2024 6:13 PM Healthcare Proxy 03/16/2024 7:39 AM Health are Proxy Healthcare Proxy 07/15/2018 1:25 PM PROXY * Full Code (Latest Code Status on File) Date Activated Date Inactivated Comments 03/13/2024 4:42 PM Question Answer Comments Code Status Confirmed With: Patient * Full Code Date Activated Date Inactivated Comments 03/22/2021 11:03 AM 03/13/2024 4:42 PM Question Answer Comments Code Status Confirmed With: Patient Code Status Communicated To: Inpatient Attending * Full Code (Confirmed) Date Activated Date Inactivated Comments 11/01/2018 10:13 PM 11/03/2018 5:09 PM Question Answer Comments Code Status Confirmed With: FamilyPatient Code Status Communicated To: Inpatient Attending * Full Code (Confirmed) Date Activated Date Inactivated Comments 07/15/2018 4:43 PM 07/18/2018 4:10 PM Question Answer Comments Code Status Confirmed With: Patient * Full Code (Presumed) Date Activated Date Inactivated Comments 07/11/2018 3:31 AM 07/14/2018 7:13 PM Healthcare Agents on File Name Relationship Healthcare Agent Relationship Communication Enrique Clark Son Alternate Health care Agent (Proxy form on file) Patriciasa Clark Daughter .Primary Health Care Agent (Proxy form on file) Care Teams Drive Thru Order Taker Relationship Specialty Start Date End Date Prema Demarco MD [address] [place] [address], [address] [place] [address] PCP - General 05/19/17 Chloe Zaragoza CNP [address] [place] [address], [address] [place] [address] Historical LMR Provider 05/03/17 Edwin Burnette MD [address] [facility] [place] [address] Hospitalist 11/14/21 Additional Source Comments The information contained in this document represents components of the legal health record. It is not the complete legal health record.[facility]
== END 2025-04-18 13:04 | disposition home or self-care (01) ==
LOC: HO.LAB 13:03
PROVIDERS: PCP Pediatrics; Visit Provider Surgery Vascular Surgery
DX: I71.43 Infrarenal abdominal aortic aneurysm, without rupture (principal)
CPT/HCPCS: 36415; 82565; 84520

== ENCOUNTER 2025-04-19 08:56 | Outpatient (REF) | payer MEDICARE, SELFPAY ==
--- NOTE | ~2025-04-19 | CT_ITS ---
EXAMINATION: CT ANGIOGRAM ABDOMEN AND PELVIS CLINICAL INFORMATION: Infrarenal abdominal aortic aneurysm, without rupture COMPARISON: Previous CT scans most recent March 2024 TECHNIQUE: Multiple axial images were obtained through the abdomen and pelvis following the administration of 100 mL of Omnipaque 350 intravenous contrast. Images were reviewed on a dedicated 3-D workstation. This CT examination was performed using dose optimization techniques as appropriate, variously including the following: *Automated exposure control *Adjustment of mA and/or kV according to patient size (this includes techniques or standardized protocols for targeted exams where dose is matched to indication/reason for exam; i.e. extremities or head) *Use of iterative reconstruction technique FINDINGS: Vascular: Fusiform intrarenal abdominal aortic aneurysm. This measures 4.1 x 4.1 cm and is not appreciably changed. Previous measurements 4.4 x 3.9 cm and 4.4 x 3.8 cm. 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 No endoleak. The common internal and external iliac arteries are patent. Common femoral arteries and femoral bifurcations are patent. The celiac axis and SMA are patent. There are patent bilateral renal arteries. LUNG BASES: The visualized lung bases are unremarkable. LIVER, GALLBLADDER, AND BILIARY TREE: The liver is normal in size, shape, and attenuation. No focal hepatic lesion or biliary ductal dilatation is present. The gallbladder is absent. PANCREAS: Unremarkable. SPLEEN: Unremarkable. ADRENAL GLANDS: Unremarkable. KIDNEYS AND URETERS: Bilateral renal cortical and peripelvic cysts. No hydronephrosis, hydroureter, or calculi seen. No perinephric stranding. BLADDER: Enlarged prostate gland protrudes into the base of the bladder. GASTROINTESTINAL TRACT: Constipation and diverticulosis of the colon. The small and large bowel are otherwise unremarkable. ABDOMINAL WALL: No significant hernia is appreciated. LYMPH NODES: Normal. PELVIC VISCERA: Unremarkable. OSSEOUS STRUCTURES: Generative changes of the spine and hips. Slight loss of height of the superior endplate of the L2 vertebral body unchanged. CT/CT angio abdomen pelvis IMPRESSION: No appreciable change in fusiform lower abdominal aortic aneurysm measuring 4.1 x 4.1 cm. 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 No endoleak. Fleischner guidelines were followed. Electronically signed by: Marizol Rene MD 04/19/2025 09:42 AM EDT
[2025-04-19] MEDS: iohexoL 350 MG/ML 100 ML INFUS..BTL IV (09:22)
--- OUTSIDE RECORDS SUMMARY | 2025-04-19 09:44 | XMS_ITS | Encounter Summary ---
Author Organization [facility] Address [address] [facility] [address] [place] [address] Phone Care Team Providers Care Support Engineer Name Role Phone Luis Alberto Davey MD Unavailable [phone] Romie Arevalo MD Unavailable [phone] Ann Snyder MD Unavailable [phone] DESIGN DRAFTSPERSON Unavailable [phone] Sandra Gross MD Unavailable [phone] CLERK Unavailable [phone] Day Chandra MD Unavailable [phone] Bigg Caro MD Unavailable [phone] CLERK Unavailable [phone] Jamaal Hernandez MD Unavailable [phone] [address] Zar[address] CHIEF DEPUTY COURT CLERK Unavailable [phone] Luis Alberto Davey MD Primary Care Provider + Edwin Burnette MD Unavailable [phone] Encounter Details Date Type Department Care Team (Latest Contact Info) Description 08/07/2018 Transcribe Orders [facility] Specimen Processing [address] [place] [id number] Luis Alberto Davey MD [address] [place] [address], [address] [place] [address] [email or web address] Mechanical and motor problems with [...] Description 07/06/2025 1:45 PM EST Office Visit [address] [address] Luis Alberto Davey MD [address] [place] [address], [address] [place] [address] documented as of this encounter Results * Rapid influenza A and B (08/07/2018 10:38 AM EST) Influenza A Ag Negative Negative [facility] Influenza B Ag Negative Negative [facility] Other (Nasal) 08/07/2018 10: 38 AM EST 08/07/2018 4:03 PM EST us Luis Alberto Davey MD MICROBIOLOGY - GENERAL ORDERAB LES Final Result [address] [address] documented in this encounter Visit Diagnoses Diagnosis Mechanical and motor problems with internal organs- Primary documented in this encounter Additional Health Concerns Infection Onset Date Last Indicated Resolved Time CoV-Exposed Comment:Recent close contact documented in the COVID-19 PCR/PRO order 05/30/2021 06/06/2021 06/14/2021 1:[address] documented as of this encounter Care Teams Support Engineer Relationship Specialty Start Date End Date Luis Alberto Davey MD [address] [place] [address], [address] [place] [address] [email or web address] PCP - General 05/19/17 Luis Alberto Davey MD [address] [place] [address], [address] [place] [address] Historical LMR Provider 05/03/17 2 Romie Arevalo MD [address] [place] [address], [address] [place] [address] Historical LMR Provider 05/03/17 07/21/21 Ann Snyder MD [address] [place] [address] [email or web address] Historical LMR Provider 05/03/17 07/21/21 Justo Gurrola NP [address] [place] [address] [address] [address] [email or web address] Historical LMR Provider 05/03/17 07/21/21 Sandra Gross MD [address] [place] [address], [address] [place] [address] Historical LMR Provider 05/03/17 07/21/21 Miguel Solomon, CHIEF DEPUTY COURT CLERK [address] [facility] [place] [address] Historical LMR Provider 05/03/17 07/21/21 Day Chandra MD [address] [place] [address], [address] [place] [address] Historical LMR Provider 05/03/17 Bigg Caro MD [address] [place] [address], [address] [place] [address] Historical LMR Provider 05/03/17 07/21/21 Wilfred Jones, CHIEF DEPUTY COURT CLERK [address] [place] [address], [address] [place] [address] [email or web address] Historical LMR Provider 05/03/17 07/21/21 Jamaal Hernandez MD [address] [facility] Floor 1 [place] [address] [email or web address] Historical LMR Provider 05/03/17 07/21/21 Chloe Zaragoza CNP [address] [place] [address], [address] [place] [address] [email or web address] Historical LMR Provider 05/03/17 Edwin Burnette MD [facility] [place] [address] Hospitalist 11/14/21 documented as of this encounter Additional Source Comments The information contained in this document represents components of the legal health record. It is not the complete legal health record.[facility]
--- OUTSIDE RECORDS SUMMARY | 2025-04-19 09:44 | XMS_ITS | Encounter Summary ---
Author Organization [facility] Address [address] [facility] [address] [place] [address] Phone Care Team Providers Care University Manager Name Role Phone Luis Alberto Davey MD Unavailable +-[phone] Romie Arevalo MD Unavailable +-58 Ann Snyder MD Unavailable [phone] Justo Gurrola UNIFORM PATROL POLICE OFFICER Unavailable [phone] Sandra Gross MD Unavailable +37 Miguel Solomon HUMANE AGENT Unavailable +1-41 Day Chandra MD Unavailable +-[phone] Bigg Caro MD Unavailable +[phone] Wilfred Jones HUMANE AGENT Unavailable +-[phone] Jamaal Hernandez MD Unavailable +1-4 Chloe Zaragoza HUMANE AGENT Unavailable [phone] Luis Alberto Davey MD Primary Care Provider + Edwin Burnette MD Unavailable [phone] Encounter Details Date Type Department Care Team (Late st Contact Info) Description 12/01/2020 Ancillary Orders [facility] [address] 3rd [place] [address] Greg Cross DO [address] [facility] [address] [place] [address] [email or web address] PVD (peripheral vascular disease) Social History Tobacco [...] Description 07/06/2025 1:45 PM EST Office Visit [address] [place] [address] Luis Alberto Davey MD [address] [facility], [address] [place] [address] [email or web address] documented as of this encounter Results * [...] documented as of this encounter Care Teams University Manager Relationship Specialty Start Date End Date Luis Alberto Davey MD [address] [place] [address], [address] [place] [address] PCP - General 05/19/17 Luis Alberto Davey MD [address] [place] [address], [address] [address] Historical LMR Provider 05/03/17 2 Romie Arevalo MD [address] [place] [address], [address] [place] [address] Historical LMR Provider 05/03/17 07/21/21 Ann Snyder MD [address] [place] [address] [email or web address] Historical LMR Provider 05/03/17 07/21/21 Justo Gurrola NP [address] [place] [address] 2_[place] [address] [email or web address] Historical LMR Provider 05/03/17 07/21/21 Sandra Gross MD [address] [facility], 2nd [place] [address] Historical LMR Provider 05/03/17 07/21/21 Miguel Solomon, HUMANE AGENT [address] [facility], [address] [place] [address] Historical LMR Provider 05/03/17 07/21/21 Day Chandra MD [address] [facility], 2nd [place] [address] Historical LMR Provider 05/03/17 Bigg Caro MD [address] [place] [address], [address] [place] [address] Historical LMR Provider 05/03/17 07/21/21 Wilfred Jones HUMANE AGENT [address] [place] [address], 2nd [place] [address] Historical LMR Provider 05/03/17 07/21/21 Jamaal Hernandez MD [address] [facility] Floor 1 [place] [address] [email or web address] Historical LMR Provider 05/03/17 07/21/21 Chloe Zaragoza CNP [address] [place] [address], [address] [place] [address] Historical LMR Provider 05/03/17 Edwin Burnette MD [address] [place] [address] [place] [address] Hospitalist 11/14/21 documented as of this encounter Additional Source Comments The information contained in this document represents components of the legal health record. It is not the complete legal health record.[facility]
--- OUTSIDE RECORDS SUMMARY | 2025-04-19 09:44 | XMS_ITS | Encounter Summary ---
Author Organization [facility] Address [address] [facility] [address] [place] [address] Phone Care Team Providers Care Cruise Consultant Name Role Phone EnioDeyanira deckeralana STERN Unavailable [phone] Luis Alberto Davey MD Primary Care Provider [phone] Edwin Burnette MD Unavailable [phone] Encounter Details Date Type Department Care Team (Late st Contact Info) Description 10/25/2024 Procedure Pass [facility] Endoscopy Admitting Dept Virtual Department 30 [place] [address] Social History Tobacco Use Types Packs/Day Years [...] Description 07/06/2025 1:45 PM EST Office Visit [facility] Family Medicine [address] [place] [address] [place] [address] Luis Alberto Davey MD [address] [place] [address], [address] [place] [address] documented as of this encounter Visit Diagnoses Not on filedocumented in this encounter Additional Health Concerns Assessment Noted Time PHQ-2 Depression Total Score: 0 04/16/20 24 9:55 AM EDT documented as of this encounter Care Teams Cruise Consultant Relationship Specialty Start Date End Date Luis Alberto Davey MD [address] [place] [address], [address] [place] [address] PCP - General 05/19/17 Chloe Zaragoza CNP [address] [place] [address], [address] [place] [address] Historical LMR Provider 05/03/17 Edwin Burnette MD [address] [facility] [place] [address] Hospitalist 11/14/21 documented as of this encounter Additional Source Comments The information contained in this document represents components of the legal health record. It is not the complete legal health record.[facility]
--- OUTSIDE RECORDS SUMMARY | 2025-04-19 09:44 | XMS_ITS | Encounter Summary ---
Author Organization [facility] Address [address] [facility] [address] [place] [address] Phone Care Team Providers Care Cake Knocker Name Role Phone Luis Alberto Davey MD Unavailable +-[phone] Romie Arevalo MD Unavailable +-58 Ann Snyder MD Unavailable [phone] Justo Gurrola COMPUTER TYPESETTER Unavailable [phone] Sandra Gross MD Unavailable +37 Miguel Solomon MOTORBOAT OPERATOR Unavailable +1-41 Day Chandra MD Unavailable +-[phone] Bigg Caro MD Unavailable +[phone] Wilfred Jones MOTORBOAT OPERATOR Unavailable +-[phone] Jamaal Hernandez MD Unavailable +1-4 Chloe Zaragoza MOTORBOAT OPERATOR Unavailable [phone] Luis Alberto Davey MD Primary Care Provider + Edwin Burnette MD Unavailable [phone] Encounter Details Date Type Department Care Team (Late st Contact Info) Description 07/16/2018 Procedure Pass [place] Admitting Dept - Virtual Department 30 [place] [address] Social History Tobacco Use Types Packs/Day Years [...] Description 07/06/2025 1:45 PM EST Office Visit [address] [address] Luis Alberto Davey MD [address] [place] [address], [address] [place] [address] [email or web address] documented as of this encounter Visit Diagnoses Not on filedocumented in this encounter Additional Health Concerns Infection Onset Date Last Indicated Resolved Time CoV-Exposed Comment:Recent close contact documented in the COVID-19 PCR/PRO order 05/30/2021 06/06/2021 06/14/2021 1:[address] documented as of this encounter Care Teams Cake Knocker Relationship Specialty Start Date End Date Luis Alberto Davey MD [address] [place] [address], [address] [place] [address] PCP - General 05/19/17 Luis Alberto Davey MD [address] [place] [address], [address] [place] [address] Historical LMR Provider 05/03/17 2 Romie Arevalo MD [address] [place] [address], [address] [place] [address] Historical LMR Provider 05/03/17 07/21/21 Ann Snyder MD [address] [place] [address] [email or web address] Historical LMR Provider 05/03/17 07/21/21 Justo Gurrola NP [address] [place] [address] 2_[place] [address] [email or web address] Historical LMR Provider 05/03/17 07/21/21 Sandra Gross MD [address] [place] [address], [address] [place] [address] Historical LMR Provider 05/03/17 07/21/21 Miguel Solomon, MOTORBOAT OPERATOR [address] [place] [address], [address] [place] [address] Historical LMR Provider 05/03/17 07/21/21 Day Chandra MD [address] [place] [address], [address] [place] [address] Historical LMR Provider 05/03/17 Bigg Caro MD [address] [place] [address], [address] [place] [address] Historical LMR Provider 05/03/17 07/21/21 Wilfred Jones MOTORBOAT OPERATOR [address] [facility], 2nd [place] [address] [email or web address] Historical LMR Provider 05/03/17 07/21/21 Jamaal Hernandez MD [address] [facility] Floor 1 [place] [address] [email or web address] Historical LMR Provider 05/03/17 07/21/21 Chloe Zaragoza CNP [address] [facility], [address] [place] [address] [email or web address] Historical LMR Provider 05/03/17 Edwin Burnette MD [address] [facility] [place] [address] Hospitalist 11/14/21 documented as of this encounter Additional Source Comments The information contained in this document represents components of the legal health record. It is not the complete legal health record.[facility]
--- OUTSIDE RECORDS SUMMARY | 2025-04-19 09:44 | XMS_ITS | Encounter Summary ---
Author Organization [facility] Address [address] [facility] [address] [place] [address] Phone Care Team Providers Care Yield Improvement Engineer Name Role Phone Chloe Zaragoza POSTAL MAIL CARRIER Unavailable [phone] Luis Alberto Davey MD Primary Care Provider [phone] Edwin Burnette MD Unavailable [phone] Reason for Visit * Reason Onset Date Comments Triage 10/21/2024 Red+rectal bleed ing Encounter Details Date Type Department Care Team (Late st Contact Info) Description 10/21/2024 Nurse Triage [address] [place], [place] [id number] Luis Alberto Davey MD [address] [facility], [address] [place], [place] [id number] [email or web address] Triage (Red+rectal bleeding) Social History Tobacco Use [...] 11:57 AM EDT Natanael Harris RN * [place] Suicide Severity Rating Scale (Screener/Recent Self-Report) Question [...] a TCM appointment- patient was seen at [facility] ED 10/22 and underwent an outpatient sigmoidoscopy on 10/25. If he is having symptoms that necessitate a sooner visit, please document these & return to triage. Otherwise, it is clinically appropriate to follow up in the next available slot with PCP. He can also contact GI. * Mani Mcdonald - 10/27/2024 11:33 AM EDT Transitional Care Management New Patient: YES/NO: no Hospitalization Name: [facility] Discharge Date: 10/25/2024 Reason for Visit+ Diagnosis: [...] said he needs to be see sooner. [facility] Call Center CSS Agent (Please do [...] blood. Please contact and advise. Central Support Site Controller (Please do not reply to this user; this inbox is not monitored.) Thank you. * Treva Ray RN - 10/21/2024 1:43 PM EDT Notified patient this caller spoke with [facility] and they stated the patient [...] 1:42 PM EDT Spoke with Latoya at [facility]. Dr. Neal is doing scopes all day. A message has been sent to him. Dr. Neal advised him to go to the ED if he is hemorrhaging. Latoya will send another notice to Dr. Neal. * Treva Rya RN - 10/21/2024 11:43 AM EDT Awaiting [...] from him. Advised this caller will call [facility] and will call him back. * Eva Glaser - 10/21/2024 11:36 AM EDT [facility] PEN Top Smart Phrases: Red Yellow Green Guidelines Select Red, Yellow, Green Triage Intake *Route to appropriate staff member/pool according to practice guidelines* Red Call Intake Call Back Number: (if not patient, name/relationship and if patient is with caller) [phone] Red Symptom(s): Rectal bleeding When did these [...] Description 07/06/2025 1:45 PM EST Office Visit [address] [place] [address] Luis Alberto Davey MD [address] [place] [address], [address] [place] [address] Scheduled Orders Name Type Priority Associated Diagnoses Orde r Schedule CBC Lab Routine Rectal bleeding Expected: 10/22/2024, Expires: documented as of this encounter Visit Diagnoses Diagnosis Rectal bleeding- Primary Hemorrhage of rectum and anus documented in this encounter Additional Health Concerns Assessment Noted Time PHQ-2 Depression Total Score: 0 04/16/20 24 9:55 AM EDT documented as of this encounter Care Teams Yield Improvement Engineer Relationship Specialty Start Date End Date Luis Alberto Davey MD [address] [facility], [address] [place] [address] PCP - General 05/19/17 Chloe Zaragoza CNP [address] [place] [address], [address] [place] [address] Historical LMR Provider 05/03/17 [place] [address] [place] [address] [place] [address] Hospitalist 11/14/21 documented as of this encounter Additional Source Comments The information contained in this document represents components of the legal health record. It is not the complete legal health record.[facility]
--- OUTSIDE RECORDS SUMMARY | 2025-04-19 09:44 | XMS_ITS | Encounter Summary ---
Author Organization [facility] Address [address] [facility] [address] [place] [address] Phone Care Team Providers Care Invas Tech Name Role Phone EnioChloe decker LABOR STANDARDS DIRECTOR Unavailable [phone] Luis Alberto Davey MD Primary Care Provider [phone] Edwin Burnette MD Unavailable [phone] Encounter Details Date Type Department Care Team (Late st Contact Info) Description 11/15/2021 Procedure Pass [facility], [address] [place] [address] Social History Tobacco Use Types Packs/Day Years [...] Description 07/06/2025 1:45 PM EST Office Visit [facility] 22 [place] [address] Luis Alberto Davey MD [address] [place] [address], [address] [place] [address] documented as of this encounter Visit Diagnoses Not on filedocumented in this encounter Care Teams Invas Tech Relationship Specialty Start Date End Date Luis Alberto Davey MD [address] [place] [address], [address] [place] [address] PCP - General 05/19/17 Chloe Zaragoza CNP [address] [place] [address], [address] [place] [address] Historical LMR Provider 05/03/17 Edwin Burnette MD [address] [facility] [place] [address] Hospitalist 11/14/21 documented as of this encounter Additional Source Comments The information contained in this document represents components of the legal health record. It is not the complete legal health record.[facility]
--- OUTSIDE RECORDS SUMMARY | 2025-04-19 09:44 | XMS_ITS | Encounter Summary ---
Author Organization [facility] Address [address] [facility] [address] [place] [address] Phone Care Team Providers Care Printing Machine Operator Tape Rules Name Role Phone Luis Alberto Davey MD Unavailable +[phone] Romie Arevalo MD Unavailable +-58 Ann Snyder MD Unavailable [phone] Justo Gurrola GUEST RELATION OFFICER Unavailable [phone] Sandra Gross MD Unavailable +37 Miguel Solomon CLIENT LIAISON Unavailable +[phone] Day Chandra MD Unavailable +[phone] Bigg Caro MD Unavailable +[phone] Wilfred Jones CLIENT LIAISON Unavailable +-[phone] Jamaal Hernandez MD Unavailable +1-4 Chloe Zaragoza CLIENT LIAISON Unavailable [phone] Luis Alberto Davey MD Primary Care Provider + Edwin Burnette MD Unavailable [phone] Encounter Details Date Type Department Care Team (Latest Contact Info) Description 05/19/2017 Transcribe Orders [facility] 30 [place] [address] Matthew Billings MD [address] [facility] [place] [address] [email or web address] Benign localized hyperplasia of prostate with [...] Description 07/06/2025 1:45 PM EST Office Visit [facility] Medicine [address] [place] [address] Luis lAberto Davey MD [address] [facility], [address] [place] [address] [email or web address] documented as of this encounter Procedures Procedure Name Priority Date/Time Associated Diagnosis Comments PSA (SCREENING) Routine 05/19/2017 8:40 AM EST Benign localized hyperplasia of prostate with urinary retention documented in this encounter Results * PSA (screening) (05/19/2017 8:40 AM EST) PSA 2.94 0 - 4.00 ng/mL [facility] Blood 05/19/2017 8:40 AM EST 05/19/2017 2:37 PM EST us Matthew Billings MD LAB BLOOD ORDERABLES Final Resul t [facility] [address] [place] [address] documented in this encounter Visit Diagnoses Diagnosis [...] documented as of this encounter Care Teams Printing Machine Operator Tape Rules Relationship Specialty Start Date End Date Luis Alberto Davey MD [address] [place] [address], [address] [address] PCP - General 05/19/17 Luis Alberto Davey MD [address] [place] [address], [address] [address] Historical LMR Provider 05/03/17 2 Romie Arevalo MD [address] [place] [address], [address] [address] Historical LMR Provider 05/03/17 07/21/21 Ann Snyder MD [address] [place] [address] [email or web address] Historical LMR Provider 05/03/17 07/21/21 Justo Gurrola NP [address] [place] [address] 2_[place] [address] [email or web address] Historical LMR Provider 05/03/17 07/21/21 Sandra Gross MD [address] [address] Historical LMR Provider 05/03/17 07/21/21 Miguel Solomon, CLIENT LIAISON [address] [facility], [address] [place] [address] Historical LMR Provider 05/03/17 07/21/21 Day Chandra MD [address] [place] [address] Historical LMR Provider 05/03/17 Bigg Caro MD [address] [place] [address], [address] [place] [address] Historical LMR Provider 05/03/17 07/21/21 Wilfred Jones CLIENT LIAISON [address] [place] [address] Historical LMR Provider 05/03/17 07/21/21 Jamaal Hernandez MD [address] [facility] 1 [place] [address] [email or web address] Historical LMR Provider 05/03/17 07/21/21 Chloe Zaragoza CNP [address] [place] [address], [address] [place] [address] Historical LMR Provider 05/03/17 Edwin Burnette MD [address] [facility] [place] [address] Hospitalist 11/14/21 documented as of this encounter Additional Source Comments The information contained in this document represents components of the legal health record. It is not the complete legal health record.[facility]
--- OUTSIDE RECORDS SUMMARY | 2025-04-19 09:44 | XMS_ITS | Encounter Summary ---
Author Organization [facility] Address [address] [facility] [address] [place] [address] Phone Care Team Providers Care Meat And Poultry Inspector Name Role Phone Chloe Zaragoza LEENA Unavailable [phone] Luis Alberto Davey MD Primary Care Provider [phone] Edwin Burnette MD Unavailable [phone] Reason for Visit * Reason Onset Date Comments Request For Order(s) 04/11/2025 MRI Encounter Details Date Type Department Care Team (Late st Contact Info) Description 04/11/2025 Telephone [facility] [address] [place], [place] [address] Luis Alberto Davey MD [address] [facility], [address] [place], [place] [address] [email or web address] Request For Order(s) (MRI ) Social History [...] an artery in his chest faxed to [facility] for an appt he has on 04/19. Please contact and advise. Central Support School Superintendent (Please do not reply to this user; this inbox is not monitored.) Thank you. documented in this encounter Plan of Treatment Upcoming Encounters Date Type Department Care Team (Late st Contact Info) Description 07/06/2025 1:45 PM EST Office Visit [facility] Medicine [address] [place] [address] Luis Alberto Davey MD [address] [facility], [address] [place] [address] documented as of this encounter Visit Diagnoses Not on filedocumented in this encounter Additional Health Concerns Assessment Noted Time PHQ-2 Depression Total Score: 0 04/16/20 24 9:55 AM EDT documented as of this encounter Care Teams Meat And Poultry Inspector Relationship Specialty Start Date End Date Luis Alberto Davey MD [address] [facility], [address] [place] [address] PCP - General 05/19/17 Chloe Zaragoza CNP [address] [place] [address], [address] [place] [address] Historical LMR Provider 05/03/17 Edwin Burnette MD [address] [facility] [place] [address] Hospitalist 11/14/21 documented as of this encounter Additional Source Comments The information contained in this document represents components of the legal health record. It is not the complete legal health record.[facility]
--- OUTSIDE RECORDS SUMMARY | 2025-04-19 09:44 | XMS_ITS | Encounter Summary ---
Author Organization [facility] Address [address] [facility] [address] [place] [address] Phone Care Team Providers Care Still Operator Helper Name Role Phone Chloe Zaragoza LEENA Unavailable [phone] Luis Alberto Davey MD Primary Care Provider [phone] Edwin Burnette MD Unavailable [phone] Reason for Visit * Reason Onset Date Comments Referral 11/11/2022 Rectal Bleeding 11/11/2022 Encounter Details Date Type Department Care Team (Late st Contact Info) Description 11/11/2022 Telephone [facility] [address] [place] [address] Luis Alberto Davey MD [address] [facility], [address] [place], [place] [id number] [email or web address] Referral; Rectal Bleeding Social History Tobacco Use [...] Description 07/06/2025 1:45 PM EST Office Visit [address] [place] [address] Luis Alberto Davey MD [address] [place] [address], [address] [place] [address] documented as of this encounter Visit Diagnoses Not on filedocumented in this encounter Additional Health Concerns Assessment Noted Time PHQ-2 Depression Total Score: 0 07/04/20 22 1:20 PM EST documented as of this encounter Care Teams Still Operator Helper Relationship Specialty Start Date End Date Luis Alberto Davey MD [address] [place] [address], [address] [place] [address] PCP - General 05/19/17 Chloe Zaragoza CNP [address] [place] [address], [address] [place] [address] Historical LMR Provider 05/03/17 Edwin Burnette MD [address] [facility] [place] [address] Hospitalist 11/14/21 documented as of this encounter Additional Source Comments The information contained in this document represents components of the legal health record. It is not the complete legal health record.[facility]
--- OUTSIDE RECORDS SUMMARY | 2025-04-19 09:44 | XMS_ITS | Encounter Summary ---
Author Organization [facility] Address [address] [facility] [address] [place] [address] Phone Care Team Providers Care Sample Grader Name Role Phone EnioDeyanira deckeralana STERN Unavailable [phone] Luis Alberto Davey MD Primary Care Provider [phone] Edwin Burnette MD Unavailable [phone] Encounter Details Date Type Department Care Team (Late st Contact Info) Description 11/19/2021 Procedure Pass [facility], [address] [place] [address] Social History Tobacco Use Types Packs/Day Years [...] Description 07/06/2025 1:45 PM EST Office Visit [facility] [place] [facility] [address] [place] [address] [place] [address] Luis Alberto Davey MD [address] [facility], [address] [place] [address] documented as of this encounter Visit Diagnoses Not on filedocumented in this encounter Care Teams Sample Grader Relationship Specialty Start Date End Date Luis Alberto Davey MD [address] [place] [address], [address] [place] [address] PCP - General 05/19/17 Chloe Zaragoza CNP [address] [place] [address], [address] [place] [address] Historical LMR Provider 05/03/17 Edwin Burnette MD [address] [facility] [place] [address] Hospitalist 11/14/21 documented as of this encounter Additional Source Comments The information contained in this document represents components of the legal health record. It is not the complete legal health record.[facility]
--- OUTSIDE RECORDS SUMMARY | 2025-04-19 09:44 | XMS_ITS | Encounter Summary ---
Author Organization [facility] Address [address] [facility] [address] [place] [address] Phone Care Team Providers Care Cd Reactor Operator Name Role Phone Luis Alberto Davey MD Unavailable +-[phone] Romie Arevalo MD Unavailable +-58 Ann Snyder MD Unavailable [phone] Justo Gurrola MANAGER NEONATAL Unavailable [phone] Sandra Gross MD Unavailable +37 Miguel Solomon MERCHANDISING PROFESSOR Unavailable +1-41 Day Chandra MD Unavailable +-[phone] Bigg Caro MD Unavailable +[phone] Wilfred Jones MERCHANDISING PROFESSOR Unavailable +-[phone] Jamaal Hernandez MD Unavailable +1-4 Chloe Zaragoza MERCHANDISING PROFESSOR Unavailable [phone] Luis Alberto Davey MD Primary Care Provider + Edwin Burnette MD Unavailable [phone] Encounter Details Date Type Department Care Team (Late st Contact Info) Description 05/26/2017 Procedure Pass [facility] Admitting Dept Virtual Department 30 [place] [address] Social History Tobacco Use Types Packs/Day Years [...] Description 07/06/2025 1:45 PM EST Office Visit [facility] 22 [place] [address] Luis Alberto Davey MD [address] [place] [address], [address] [place] [address] [email or web address] documented as of this encounter Visit Diagnoses Not on filedocumented in this encounter Additional Health Concerns Infection Onset Date Last Indicated Resolved Time CoV-Exposed Comment:Recent close contact documented in the COVID-19 PCR/PRO order 05/30/2021 06/06/2021 06/14/2021 1:[address] documented as of this encounter Care Teams Cd Reactor Operator Relationship Specialty Start Date End Date Luis Alberto Davey MD [address] [place] [address], [address] [place] [address] [email or web address] PCP - General 05/19/17 Luis Alberto Davey MD [address] [place] [address], [address] [place] [address] Historical LMR Provider 05/03/17 2 Romie Arevalo MD [address] [place] [address], [address] [place] [address] Historical LMR Provider 05/03/17 07/21/21 Ann Snyder MD [address] [place] [address] [email or web address] Historical LMR Provider 05/03/17 07/21/21 Justo Gurrola NP [address] [place] [address] 2_[place] [address] [email or web address] Historical LMR Provider 05/03/17 07/21/21 Sandra Gross MD [address] [place] [address], [address] [place] [address] Historical LMR Provider 05/03/17 07/21/21 Miguel Solomon, MERCHANDISING PROFESSOR [address] [place] [address], [address] [place] [address] Historical LMR Provider 05/03/17 07/21/21 Day Chandra MD [address] [place] [address], [address] [place] [address] Historical LMR Provider 05/03/17 Bigg Caro MD [address] [place] [address], [address] [place] [address] Historical LMR Provider 05/03/17 07/21/21 Wilfred Jones MERCHANDISING PROFESSOR [address] [facility], 2nd [place] [address] [email or web address] Historical LMR Provider 05/03/17 07/21/21 Jamaal Hernandez MD [address] [facility] Floor 1 [place] [address] [email or web address] Historical LMR Provider 05/03/17 07/21/21 Chloe Zaragoza CNP [address] [facility], [address] [place] [address] [email or web address] Historical LMR Provider 05/03/17 Edwin Burnette MD [address] [facility] [place] [address] Hospitalist 11/14/21 documented as of this encounter Additional Source Comments The information contained in this document represents components of the legal health record. It is not the complete legal health record.[facility]
--- OUTSIDE RECORDS SUMMARY | 2025-04-19 09:45 | XMS_ITS | Encounter Summary ---
Author Organization [facility] Address [address] [facility] [address] [place] [address] Phone Care Team Providers Care Air Traffic Control Operator Name Role Phone Luis Alberto Davey MD Unavailable +-[phone] Romie Arevalo MD Unavailable +-58 Ann Snyder MD Unavailable Justo Gurrola ROUGH CARPENTER Unavailable [phone] Sandra Gross MD Unavailable +37 Miguel Solomon MARKETING DEVELOPMENT REPRESENTATIVE Unavailable +1-41 Day Chandra MD Unavailable +-[phone] Bigg Caro MD Unavailable +[phone] Wilfred Jones MARKETING DEVELOPMENT REPRESENTATIVE Unavailable +-[phone] Jamaal Hernandez MD Unavailable +1-4 Chloe Zaragoza MARKETING DEVELOPMENT REPRESENTATIVE Unavailable [phone] Luis Alberto Davey MD Primary Care Provider + Edwin Burnette MD Unavailable [phone] Encounter Details Date Type Department Care Team (Late st Contact Info) Description 06/30/2017 Procedure Pass [facility]oscopy Admitting Dept Virtual Department 30 [place] [address] Social History Tobacco Use Types Packs/Day Years [...] Description 07/06/2025 1:45 PM EST Office Visit [facility] 22 [place] [address] Luis Alberto Daevy MD [address] [place] [address], [address] [place] [address] [email or web address] documented as of this encounter Visit Diagnoses Not on filedocumented in this encounter Additional Health Concerns Infection Onset Date Last Indicated Resolved Time CoV-Exposed Comment:Recent close contact documented in the COVID-19 PCR/PRO order 05/30/2021 06/06/2021 06/14/2021 1:[address] documented as of this encounter Care Teams Air Traffic Control Operator Relationship Specialty Start Date End Date Luis Alberto Davey MD [address] [place] [address], [address] [place] [address] PCP - General 05/19/17 Luis Alberto Davey MD [address] [place] [address], [address] [place] [address] Historical LMR Provider 05/03/17 2 Romie Arevalo MD [address] [place] [address], [address] [place] [address] Historical LMR Provider 05/03/17 07/21/21 Ann Snyder MD [address] [place] [address] [email or web address] Historical LMR Provider 05/03/17 07/21/21 Justo Gurrola NP [address] [place] [address] 2_[place] [address] [email or web address] Historical LMR Provider 05/03/17 07/21/21 Sandra Gross MD [address] [place] [address], [address] [place] [address] Historical LMR Provider 05/03/17 07/21/21 Miguel Solomon, MARKETING DEVELOPMENT REPRESENTATIVE [address] [place] [address], [address] [place] [address] Historical LMR Provider 05/03/17 07/21/21 Day Chandra MD [address] [place] [address], [address] [place] [address] Historical LMR Provider 05/03/17 Bigg Caro MD [address] [place] [address], [address] [place] [address] Historical LMR Provider 05/03/17 07/21/21 Wilfred Jones MARKETING DEVELOPMENT REPRESENTATIVE [address] [facility], 2nd [place] [address] [email or web address] Historical LMR Provider 05/03/17 07/21/21 Jamaal Hernandez MD [address] [facility] Floor 1 [place] [address] [email or web address] Historical LMR Provider 05/03/17 07/21/21 Chloe Zaragoza CNP [address] [facility], [address] [place] [address] [email or web address] Historical LMR Provider 05/03/17 Edwin Burnette MD [address] [facility] [place] [address] Hospitalist 11/14/21 documented as of this encounter Additional Source Comments The information contained in this document represents components of the legal health record. It is not the complete legal health record.[facility]
--- OUTSIDE RECORDS SUMMARY | 2025-04-19 09:45 | XMS_ITS | Clinical Summary ---
Author Organization [facility] Address [address] [facility] [address] [place] [address] Phone Care Team Providers Care Aeronautical Engineering Officer Name Role Phone Mila Chloe STERN Unavailable [phone] Prema Demarco MD Primary Care Provider [phone] Edwin Burnette MD Unavailable [phone] Allergies Active Allergy Reactions Criticality Noted [...] size, greater than 5 cm, referral to [facility] Dr. Atkinson for consultation to address management options. 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 Morel. He states that [facility] will be following up with his repeat scans. Have given him the fax number to our office to make sure that [facility] sends over the reports to his scans [...] Type Department Care Team Description 04/11/[address] [place] [address] Prema Demarco MD Medication Refill (Clonazepam 1 mg tab) 04/11/[address] [place] [address] Prema Demarco MD Request For Order(s) (MRI ) 03/10/2025 1:30 PM EDT Office Visit [address] [place] [address] Prema Demarco MD Malaise and fatigue (Primary Dx); Abscess of buttock, right; Erectile dysfunction, unspecified erectile dysfunction type 03/07/2025 Telephone [facility] [address] [place] [address] Prema Demarco MD Triage (Green+Discuss energy levels) [...] Description 07/06/2025 1:45 PM EST Office Visit [facility] [address] [place] [address] Prema Demarco MD 22 [facility], [address] [place] [address] [email or web address] Health Maintenance Due Date Last Done Comments [...] this topic Medical Devices Implanted Type Area Dry Cleaning Checker Device Identifier Shelf Expiration Date Model / [...] Advance Directives For more information, please contact: [phone] (9AM - 5PM [facility], Friday-Friday) Documents on File Type Date Recorded Patient Centerless Grinder Tender Expl anation Healthcare Proxy 03/29/2024 6:13 PM [...] Agent (Proxy form on file) Care Teams Aeronautical Engineering Officer Relationship Specialty Start Date End Date Prema Demarco MD [address] [place] [address], [address] [place] [address] PCP - General 05/19/17 Chloe Zaragoza CNP [address] [address], [address] [place] [address] Historical LMR Provider 05/03/17 Edwin Burnette MD [address] [facility] [place] [address] Hospitalist 11/14/21 Additional Source Comments The information contained in this document represents components of the legal health record. It is not the complete legal health record.[facility]
--- OUTSIDE RECORDS SUMMARY | 2025-04-19 09:45 | XMS_ITS | Encounter Summary ---
Author Organization [facility] Address [address] [facility] [address] [place] [address] Phone Care Team Providers Care Tissue Packer Name Role Phone Luis Alberto Davey MD Unavailable +-[phone] Romie Arevalo MD Unavailable +-58 Ann Snyder MD Unavailable [phone] Justo Gurrola WHITE METAL CASTER Unavailable [phone] Sandra Gross MD Unavailable +37 Miguel Solomon EMERGENCY MEDCL EMT Unavailable +1-41 Day Chandra MD Unavailable +-[phone] Bigg Caro MD Unavailable +[phone] Wilfred Jones EMERGENCY MEDCL EMT Unavailable +-[phone] Jamaal Hernandez MD Unavailable +1-4 Chloe Zaragoza EMERGENCY MEDCL EMT Unavailable [phone] Luis Alberto Davey MD Primary Care Provider + Edwin Burnette MD Unavailable [phone] Encounter Details Date Type Department Care Team (Late Contact Info) Description 03/22/2021 Procedure Pass [facility], [address] Scan - [address] [place] [address] Social History Tobacco Use Types Packs/Day Years [...] 4:44 AM EDT Vibha Reich, RALPH * [place] Suicide Severity Rating Scale (Screener/Recent Self-Report) Question [...] Description 07/06/2025 1:45 PM EST Office Visit [address] [address] Luis Alberto Davey MD 22 [facility], [address] [place] [address] documented as of this encounter Visit Diagnoses Not on filedocumented in this encounter Additional Health Concerns Infection Onset Date Last Indicated Resolved Time CoV-Exposed Comment:Recent close contact documented in the COVID-19 PCR/PRO order 05/30/2021 06/06/2021 06/14/2021 1:[address] documented as of this encounter Care Teams Tissue Packer Relationship Specialty Start Date End Date Luis Alberto Davye MD [address] [place] [address], [address] [place] [address] PCP - General 05/19/17 Luis Alberto Davey MD 22 [facility], [address] [place] [address] Historical LMR Provider 05/03/17 2 Romie Arevalo MD 22 [facility], [address] [place] [address] Historical LMR Provider 05/03/17 07/21/21 Ann Snyder MD 19 [place] [address] [email or web address] Historical LMR Provider 05/03/17 07/21/21 Justo Gurrola, MARYANNE [address] [place] [address] 2_[place] [address] [email or web address] Historical LMR Provider 05/03/17 07/21/21 Sandra Gross MD 15 [facility], 2nd [place] [address] Historical LMR Provider 05/03/17 07/21/21 Miguel Solomon, EMERGENCY MEDCL EMT [address] [place] [address], [address] [place] [address] Historical LMR Provider 05/03/17 07/21/21 Day Chandra MD 15 [facility], 2nd [place] [address] Historical LMR Provider 05/03/17 Bigg Caro MD 22 [facility], [address] [place] [address] Historical LMR Provider 05/03/17 07/21/21 Wilfred Jones EMERGENCY MEDCL EMT [address] [place] [address], 2nd [place] [address] Historical LMR Provider 05/03/17 07/21/21 Jamaal Hernandez MD 22 [facility] Floor 1 [place] [address] [email or web address] Historical LMR Provider 05/03/17 07/21/21 Chloe Zaragoza CNP [address] [facility], [address] [place] [address] Historical LMR Provider 05/03/17 Edwin Burnette MD 3300 [facility] [place] [address] Hospitalist 11/14/21 documented as of this encounter Additional Source Comments The information contained in this document represents components of the legal health record. It is not the complete legal health record.[facility]
--- OUTSIDE RECORDS SUMMARY | 2025-04-19 09:45 | XMS_ITS | Encounter Summary ---
Author Organization [facility] Address [address] [facility] [address] [place] [address] Phone Care Team Providers Care Sericulturist Name Role Phone Chloe Zaragoza LEENA Unavailable [phone] Luis Alberto Davey MD Primary Care Provider [phone] Edwin Burnette MD Unavailable [phone] Reason for Visit * Reason Onset Date Comments Referral 11/14/2023 Encounter Details Date Type Department Care Team (Late st Contact Info) Description 11/14/2023 Telephone [facility] [address] [place] [address] [place] [address] Luis Alberto Davey MD 22 [facility], [address] [place], [place] [id number] [email or web address] Referral Social History Tobacco Use Types Packs/Day [...] Please contact pt and advise. Central Support Wet Crown Blocking Operator (Please do not reply to this [...] Patient called requesting a referral to an Client Relationship Consultant and states will be happy to go to whatever provider Dr Davey would recommend. Please advise. Thank you! documented in this encounter Plan of Treatment Upcoming Encounters Date Type Department Care Team (Late st Contact Info) Description 07/06/2025 1:45 PM EST Office Visit [facility] [address] [place] [address] Luis Alberto Davey MD [address] [place] [address], [address] [place] [address] [email or web address] documented as of this encounter Visit Diagnoses Diagnosis Vertigo- Primary Dizziness and giddiness documented in this encounter Additional Health Concerns Assessment Noted Time PHQ-2 Depression Total Score: 0 07/04/20 22 1:20 PM EST documented as of this encounter Care Teams Sericulturist Relationship Specialty Start Date End Date Luis Alberto Davey MD [address] [place] [address], [address] [place] [address] [email or web address] PCP - General 05/19/17 Chloe Zaragoza CNP [address] [place] [address], [address] [place] [address] [email or web address] Historical LMR Provider 05/03/17 Edwin Burnette MD [address] [place] [address] Hospitalist 11/14/21 documented as of this encounter Additional Source Comments The information contained in this document represents components of the legal health record. It is not the complete legal health record.[facility]
--- OUTSIDE RECORDS SUMMARY | 2025-04-19 09:45 | XMS_ITS | Encounter Summary ---
Author Organization [facility] Address [address] [facility] [address] [place] [address] Phone Care Team Providers Care Drug Safety Physician Name Role Phone Luis Alberto Davey MD Unavailable +-[phone] Romie Arevalo MD Unavailable +-58 Ann Snyder MD Unavailable [phone] Justo Gurrola MODELING AGENT Unavailable +[phone] Sandra Gross MD Unavailable +37 Miguel Solomon PETROLEUM GEOLOGIST Unavailable +1-41 Day Chandra MD Unavailable +-[phone] Bigg Caro MD Unavailable +[phone] Wilfred Jones PETROLEUM GEOLOGIST Unavailable +-[phone] Jamaal Hernandez MD Unavailable +1-4 Chloe Zaragoza PETROLEUM GEOLOGIST Unavailable [phone] Luis Alberto Davey MD Primary Care Provider + Edwin Burnette MD Unavailable [phone] Encounter Details Date Type Department Care Team (Late st Contact Info) Description 06/30/2017 Procedure Pass [facility]oscopy Admitting Dept Virtual Department 30 [place] [address] Social History Tobacco Use Types Packs/Day Years [...] Description 07/06/2025 1:45 PM EST Office Visit [facility] 22 [place] [address] Luis Alberto Davey MD [address] [place] [address], [address] [place] [address] [email or web address] documented as of this encounter Visit Diagnoses Not on filedocumented in this encounter Additional Health Concerns Infection Onset Date Last Indicated Resolved Time CoV-Exposed Comment:Recent close contact documented in the COVID-19 PCR/PRO order 05/30/2021 06/06/2021 06/14/2021 1:[address] documented as of this encounter Care Teams Drug Safety Physician Relationship Specialty Start Date End Date Luis Alberto Davey MD [address] [place] [address], [address] [place] [address] PCP - General 05/19/17 Luis Alberto Davey MD [address] [place] [address], [address] [place] [address] Historical LMR Provider 05/03/17 2 Romie Arevalo MD [address] [place] [address], [address] [place] [address] Historical LMR Provider 05/03/17 07/21/21 Ann Snyder MD [address] [place] [address] [email or web address] Historical LMR Provider 05/03/17 07/21/21 Justo Gurrola NP [address] [place] [address] 2_[place] [address] [email or web address] Historical LMR Provider 05/03/17 07/21/21 Sandra Gross MD [address] [place] [address], [address] [place] [address] Historical LMR Provider 05/03/17 07/21/21 Miguel Solomon, PETROLEUM GEOLOGIST [address] [place] [address], [address] [place] [address] Historical LMR Provider 05/03/17 07/21/21 Day Chandra MD [address] [place] [address], [address] [place] [address] Historical LMR Provider 05/03/17 Bigg Caro MD [address] [place] [address], [address] [place] [address] Historical LMR Provider 05/03/17 07/21/21 Wilfred Jones PETROLEUM GEOLOGIST [address] [facility], 2nd [place] [address] [email or web address] Historical LMR Provider 05/03/17 07/21/21 Jamaal Hernandez MD 22 [facility] Floor 1 [place] [address] [email or web address] Historical LMR Provider 05/03/17 07/21/21 Chloe Zaragoza CNP [address] [facility], [address] [place] [address] [email or web address] Historical LMR Provider 05/03/17 Edwin Burnette MD [address] [facility] [place] [address] Hospitalist 11/14/21 documented as of this encounter Additional Source Comments The information contained in this document represents components of the legal health record. It is not the complete legal health record.[facility]
== END 2025-04-19 08:57 | disposition home or self-care (01) ==
LOC: HO.CT 08:56
PROVIDERS: PCP Pediatrics; Visit Provider Surgery Vascular Surgery
DX: I71.43 Infrarenal abdominal aortic aneurysm, without rupture (principal)
CPT/HCPCS: 74174; Q9967

== ENCOUNTER → 2025-04-19 08:57 | Outpatient (BNV) | payer MEDICARE, SELFPAY | PROVIDERS: PCP Pediatrics; Visit Provider Radiology Diagnostic Radiology | DX: I71.40 Abdominal aortic aneurysm, without rupture, unspecified (principal) | CPT/HCPCS: 74174 ==

== ENCOUNTER 2025-05-19 09:51 | Outpatient (AMB) | payer MEDICARE, SELFPAY ==
--- NOTE | 2025-05-19 09:57 | A.OFFVIS_ITS ---
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 He underwent an aortic endograft repair on May 28, 2021, using an Endologix AFX2 device. Since the procedure, he reports no interval issues, and the recent CT angiogram of the abdomen and pelvis conducted on April 19, 2025, shows stability with no evidence of endoleak. The patient remains completely independent and active, reporting no significant changes in his health status. He continues to engage in regular activities and maintains a high level of independence. [facility] Medical History Exercises daily COVID-19 vaccine series completed Restless leg syndrome Asthma Peripheral artery disease Small bowel obstruction GERD (gastroesophageal reflux disease) Hypercholesteremia Surgical History History of endovascular stent graft for abdominal aortic aneurysm (AAA) (05/28/21) Hx of exploratory laparotomy History of esophagogastroduodenoscopy (EGD) H/O colonoscopy H/O hernia repair History of cholecystectomy Family History Mother Ovarian cancer Breast cancer Father Stroke Sister Lung cancer Brother Lung cancer Sister Arthritis Social History Are you a primary critical care physician assistant to a significant other at home: No Do you presently have visiting nurse or other home services: No Alcohol intake: never Patient Tobacco Use Status: Never used Tobacco Advance Directives Date on File: 05/30/21 service: No Current occupational status: retired Review of Systems Const All systems reviewed & are unremarkable except as noted in HPI and below Reports no additional complaints ENT Reports Normal hearing present Card Denies chest pain, Denies chest pain at rest, Denies chest pain with activity and Denies pedal edema Resp Denies cough GI Denies abdominal pain Musc Denies abnormal gait, Denies muscle cramps and Denies radiating pain into limb Skin/Breast Denies skin ulcer and Denies wounds Neuro Reports Normal hearing present and Denies abnormal gait Psych Reports no additional complaints Physical Exam Vital Signs: BMI result Body Mass Index 23.0 Const General: cooperative, healthy appearing and comfortable Orientation/consciousness: oriented to person, oriented to place and oriented to time HEENT Head: Yes normal to inspection Neck Neck: Yes normal visual inspection Carotids: no bruits Chest Chest palpation & inspection: normal inspection of the chest Resp Effort & Inspection: normal respiratory effort and able to speak in complete sentences Auscultation: clear to auscultation bilaterally, no crackles, no rales, no rhonchi and no wheezes Cardio Rate: regular rate Rhythm: regular rhythm Heart sounds: S1 normal heart sound present and S2 normal heart sound present Bruits: no carotid bruits Peripheral pulses: Peripheral pulses 2+ throughout GI Inspection: Yes normal to inspection Skin Wounds: no wounds Hair: normal Neuro General: oriented to person, oriented to place and oriented to time Cranial nerves: Yes CN's II-XII intact bilaterally and Yes Normal hearing present Cognition (Neuro): normal cognition Motor exam (neuro): 5/5 motor strength present throughout Extrem Other: venous exam: No significant superficial varicosities or spider telang iectasias, minimal edema General: No clubbing, No cyanosis and No edema Psych Appearance: grossly normal Mental Status: mental status grossly normal Speech and movement: Normal speech and movement present Results Reviewed Results Reviewed: 04/19/2025 - stable aortic aneurysm with endograft. No evidence of endoleak Assessment & Plan Assessment & Plan (1) AAA (abdominal aortic aneurysm) without rupture: Comment: 05/28/2021 - endovascular aortic aneurysm repair with Endologix AFX2 device Code(s): I71.4 - Abdominal aortic aneurysm, without rupture Category: Medical Qualifiers: Abdominal aorta location: infrarenal aorta Qualified Code(s): I71.43 - Infrarenal abdominal aortic aneurysm, without rupture Plan: In short patient has a stable aortic endograft. We will plan for annual surveillance follow-up. Thank you for allowing us to assist in his care. If there are any questions or concerns please do not hesitate to contact us. Orders: Orders CT angio abdomen pelvis 1 Year I71.43 - Infrarenal abdominal aortic aneurysm, without rupture Blood Urea Nitrogen 1 Year I71.43 - Infrarenal abdominal aortic aneurysm, without rupture Creatinine 1 Year I71.43 - Infrarenal abdominal aortic aneurysm, without rupture Coding Level of Care Code Est Pt Level 4 (89158) Complex EM visit Add On G2211 Diagnoses Infrarenal abdominal aortic aneurysm (AAA) without rupture I71.43 Abdominal aorta location: infrarenal aorta
[2025-05-19 09:58] VITALS: BMI 23.0
--- OUTSIDE RECORDS SUMMARY | 2025-05-19 11:11 | XMS_ITS | Encounter Summary ---
Author Organization [facility] Address [address] [facility] [address] [place] [address] Phone Care Team Providers Care Construction Economist Name Role Phone Chloe Zaragoza SENIOR UX DESIGNER Unavailable Luis Alberto Davey MD Primary Care Provider [phone] Edwin Burnette MD Unavailable [phone] Encounter Details Date Type Department Care Team (Late st Contact Info) Description 11/15/2021 Procedure Pass [facility], [address] [place] [address] Social History Tobacco Use Types Packs/Day Years [...] 07/06/2025 1:45 PM EST Office Visit [facility] [address] [place] [address] Luis Alberto Davey MD [address] [place] [address], [address] [address] documented as of this encounter Visit Diagnoses Not on filedocumented in this encounter Care Teams Construction Economist Relationship Specialty Start Date End Date Luis Alberto Davey MD [address] [place] [address], [address] [place] [address] PCP - General 05/19/17 Chloe Zaragoza CNP [address] [place] [address], [address] [place] [address] Historical LMR Provider 05/03/17 Edwin Burnette MD [address] [facility] [place] [address] Hospitalist 11/14/21 documented as of this encounter Additional Source Comments The information contained in this document represents components of the legal health record. It is not the complete legal health record.[facility]
--- OUTSIDE RECORDS SUMMARY | 2025-05-19 11:11 | XMS_ITS | Encounter Summary ---
Author Organization [facility] Address [address] [facility] [address] [place] [address] Phone Care Team Providers Care Web Worker Name Role Phone Chloe Zaragoza LEENA Unavailable [phone] Luis Alberto Davey MD Primary Care Provider [phone] Edwin Burnette MD Unavailable [phone] Reason for Visit * Reason Onset Date Comments Request For Order(s) 04/11/2025 MRI Encounter Details Date Type Department Care Team (Late st Contact Info) Description 04/11/2025 Telephone [facility] [employer] [address] [id number] Luis Alberto Davey MD [address] [facility], [address] [place], [place] [phone] [email or web address] Request For Order(s) (MRI ) Social History [...] an artery in his chest faxed to [facility] for an appt he has on 04/19. Please contact and advise. Central Support Financial Assistance Advisor (Please do not reply to this user; this inbox is not monitored.) Thank you. documented in this encounter Plan of Treatment Upcoming Encounters Date Type Department Care Team (Late st Contact Info) Description 07/06/2025 1:45 PM EST Office Visit [facility] Medicine [address] [place] [address] Luis Alberto Davey MD [address] [place] [address], [address] [place] [address] documented as of this encounter Visit Diagnoses Not on filedocumented in this encounter Additional Health Concerns Assessment Noted Time PHQ-2 Depression Total Score: 0 04/16/20 24 9:55 AM EDT documented as of this encounter Care Teams Web Worker Relationship Specialty Start Date End Date Luis Alberto Davey MD [address] [place] [address], [address] [place] [address] PCP - General 05/19/17 Chloe Zaragoza CNP [address] [place] [address], [address] [place] [address] Historical LMR Provider 05/03/17 Edwin Burnette MD [address] [facility] [place] [address] Hospitalist 11/14/21 documented as of this encounter Additional Source Comments The information contained in this document represents components of the legal health record. It is not the complete legal health record.[facility]
--- OUTSIDE RECORDS SUMMARY | 2025-05-19 11:11 | XMS_ITS | Encounter Summary ---
Author Organization [facility] Address [address] [place] [address] Phone Care Team Providers Care Pallet Rectifier Name Role Phone Chloe Zaragoza PILLOWCASE CLEANER Unavailable Luis Alberto Davey MD Primary Care Provider [phone] Edwin Burnette MD Unavailable [phone] Encounter Details Date Type Department Care Team (Late st Contact Info) Description 10/25/2024 Procedure Pass [facility] Endoscopy Admitting Dept Virtual Department [address] [place] [address] Social History Tobacco Use Types Packs/Day Years [...] Description 07/06/2025 1:45 PM EST Office Visit [facility] Medicine [address] [place] [address] [place] [address] Luis Alberto Davey MD [address] [place] [address], [address] [place] [address] documented as of this encounter Visit Diagnoses Not on filedocumented in this encounter Additional Health Concerns Assessment Noted Time PHQ-2 Depression Total Score: 0 04/16/20 24 9:55 AM EDT documented as of this encounter Care Teams Pallet Rectifier Relationship Specialty Start Date End Date Luis Alberto Davey MD [address] [place] [address], [address] [place] [address] PCP - General 05/19/17 Chloe Zaragoza CNP [address] [place] [address], [address] [place] [address] Historical LMR Provider 05/03/17 Edwin Burnette MD [address] [facility] [place] [address] Hospitalist 11/14/21 documented as of this encounter Additional Source Comments The information contained in this document represents components of the legal health record. It is not the complete legal health record.[facility]
--- OUTSIDE RECORDS SUMMARY | 2025-05-19 11:11 | XMS_ITS | Encounter Summary ---
Author Organization [facility] Address [address] [facility] [address] [place] [address] Phone Care Team Providers Care Filler Shredder Helper Name Role Phone Chloe Zaragoza INSULATION SUPERVISOR Unavailable [phone] Luis Alberto Davey MD Primary Care Provider [phone] Edwin Burnette MD Unavailable [phone] Reason for Visit * Reason Onset Date Comments Referral 05/19/2025 [facility] Cardology + insurance referral Encounter Details Date Type Department Care Team (Late st Contact Info) Description 05/19/2025 Telephone [facility] Medicine [address] [place] [address] [place], [place] [phone] Luis Alberto Davey MD [address] [facility], [address] [place], [place] [phone] [email or web address] Referral ([facility] Cardology + insurance referral) Social History Tobacco Use Types Packs/Day Years [...] as of this encounter Progress Notes * Georges, Jane - 05/19/2025 11:03 AM EST [facility] PEN Top Smart Phrases: Referral Request 1. Name of the office where the patient has been seen/requests to be seen: [facility] Cardiology 2. Reason for referral/specialist appointment and the diagnosis code: n/a 2A. Have you seen this provider before for this same problem? YES/NO: yes 2B. If this is a new problem, is your PCP aware of your symptoms? YES/NO: n/a 3. Date of appointment(s):05/19 4. Name of specialist provider: Dr. Andrew Morel 5. NPI number to enter for referral authorization (enter n/a if not available): n/a 6. Number of visits requested for referral: n/a 7. Fax number of specialist office to send referral authorization: n/a Central Support Circulation Manager (Please do not reply to this user; this inbox is not monitored.) Thank you. documented in this encounter Plan of Treatment Upcoming Encounters Date Type Department Care Team (Late st Contact Info) Description 07/06/2025 1:45 PM EST Office Visit [facility] [address] [place] [address] [place] [address] Luis Alberto Davey MD [address] [place] [address], [address] [place] [address] documented as of this encounter Visit Diagnoses Not on filedocumented in this encounter Additional Health Concerns Assessment Noted Time PHQ-2 Depression Total Score: 0 04/16/20 24 9:55 AM EDT documented as of this encounter Care Teams Filler Shredder Helper Relationship Specialty Start Date End Date Luis Alberto Davey MD [address] [facility], [address] [place] [address] [email or web address] PCP - General 05/19/17 Chloe Zaragoza CNP [address] [facility], [address] [place] [address] Historical LMR Provider 05/03/17 Edwin Burnette MD [address] [place] [address] [place] [address] Hospitalist 11/14/21 documented as of this encounter Additional Source Comments The information contained in this document represents components of the legal health record. It is not the complete legal health record.[facility]
--- OUTSIDE RECORDS SUMMARY | 2025-05-19 11:11 | XMS_ITS | Encounter Summary ---
Author Organization [facility] Address [address] [facility] [address] [place] [address] Phone Care Team Providers Care System Administrator Name Role Phone Luis Alberto Davey MD Unavailable [phone] Romie Arevalo MD Unavailable [phone] Ann Snyder MD Unavailable [phone] Justo Gurrola RUNSTITCHING MACHINE OPERATOR Unavailable [phone] Sandra Gross MD Unavailable [phone] Miguel Solomon DEBT AND BUDGET COUNSELOR Unavailable [phone] Day Chandra MD Unavailable [phone] Bigg Caro MD Unavailable [phone] Wilfred Jones DEBT AND BUDGET COUNSELOR Unavailable [phone] Jamaal Hernandez MD Unavailable [phone] Chloe Zaragoza DEBT AND BUDGET COUNSELOR Unavailable [phone] Luis Alberto Davey MD Primary Care Provider + Edwin Burnette MD Unavailable [phone] Encounter Details Date Type Department Care Team (Late st Contact Info) Description 07/16/2018 Procedure Pass [place] Admitting Dept - Virtual Department [address] [place] [address] Social History Tobacco Use Types Packs/Day Years [...] Description 07/06/2025 1:45 PM EST Office Visit [address] [address] Luis Alberto Davey MD [address] [place] [address], [address] [place] [address] [email or web address] documented as of this encounter Visit Diagnoses Not on filedocumented in this encounter Additional Health Concerns Infection Onset Date Last Indicated Resolved Time CoV-Exposed Comment:Recent close contact documented in the COVID-19 PCR/PRO order 05/30/2021 06/06/2021 06/14/2021 1:[address] documented as of this encounter Care Teams System Administrator Relationship Specialty Start Date End Date Luis Alberto Davey MD [address] [place] [address], [address] [place] [address] [email or web address] PCP - General 05/19/17 Luis Alberto Davey MD [address] [place] [address], [address] [place] [address] Historical LMR Provider 05/03/17 2 Romie Arevalo MD [address] [place] [address], [address] [place] [address] Historical LMR Provider 05/03/17 07/21/21 Ann Snyder MD [address] [place] [address] [email or web address] Historical LMR Provider 05/03/17 07/21/21 Justo Gurrola NP [address] [place] [address] 2_[place] [address] [email or web address] Historical LMR Provider 05/03/17 07/21/21 Sandra Gross MD [address] [place] [address], [address] [place] [address] Historical LMR Provider 05/03/17 07/21/21 Miguel Solomon, LEENA [address] [place] [address], [address] [place] [address] Historical LMR Provider 05/03/17 07/21/21 Day Chandra MD [address] [place] [address], [address] [place] [address] Historical LMR Provider 05/03/17 Bigg Caro MD [address] [place] [address], [address] [place] [address] Historical LMR Provider 05/03/17 07/21/21 Wilfred Jones CNP [address] [facility], 2nd [place] [address] [email or web address] Historical LMR Provider 05/03/17 07/21/21 Jamaal Hernandez MD [address] [facility] Floor 1 [place] [address] [email or web address] Historical LMR Provider 05/03/17 07/21/21 Chloe Zaragoza CNP [address] [facility], [address] [place] [address] [email or web address] Historical LMR Provider 05/03/17 Edwin Burnette MD [address] [facility] [place] [address] Hospitalist 11/14/21 documented as of this encounter Additional Source Comments The information contained in this document represents components of the legal health record. It is not the complete legal health record.[facility]
--- OUTSIDE RECORDS SUMMARY | 2025-05-19 11:11 | XMS_ITS | Encounter Summary ---
Author Organization [facility] Address [address] [facility] [address] [place] [address] Phone Care Team Providers Care Network Technology Instructor Name Role Phone Luis Alberto Davey MD Unavailable +[phone] Romie Arevalo MD Unavailable +-58 Ann Snyder MD Unavailable [phone] Justo Gurrola LAB SPECIALIST Unavailable [phone] Sandra Gross MD Unavailable +[phone] Miguel Solomon VICE PRESIDENT RESEARCH Unavailable +[phone] Day Chandra MD Unavailable [phone] Bigg Caro MD Unavailable [phone] Wilfred Jones VICE PRESIDENT RESEARCH Unavailable [phone] Jamaal Hernandez MD Unavailable +[phone] Chloe Zaragoza VICE PRESIDENT RESEARCH Unavailable [phone] Luis Alberto Davey MD Primary Care Provider + Edwin Burnette MD Unavailable [phone] Encounter Details Date Type Department Care Team (Late Contact Info) Description 05/26/2017 Procedure Pass [facility] Endoscopy Admitting Dept Virtual Department [address] [place] [address] Social History Tobacco Use Types Packs/Day Years [...] Upcoming Encounters Date Type Department Care Team ([facility] Contact Info) Description 07/06/2025 1:45 PM EST Office Visit [address] [address] Luis Alberto Davey MD [address] [place] [address], [address] [place] [address] [email or web address] documented as of this encounter Visit Diagnoses Not on filedocumented in this encounter Additional Health Concerns Infection Onset Date Last Indicated Resolved Time CoV-Exposed Comment:Recent close contact documented in the COVID-19 PCR/PRO order 05/30/2021 06/06/2021 06/14/2021 1:[address] documented as of this encounter Care Teams Network Technology Instructor Relationship Specialty Start Date End Date Luis Alberto Davey MD [address] [place] [address], [address] [place] [address] PCP - General 05/19/17 Luis Alberto Davey MD [address] [place] [address], [address] [place] [address] [email or web address] Historical LMR Provider 05/03/17 2 Romie Arevalo MD [address] [place] [address], [address] [place] [address] Historical LMR Provider 05/03/17 07/21/21 Ann Snyder MD [address] [place] [address] [email or web address] Historical LMR Provider 05/03/17 07/21/21 Justo Gurrola NP [address] [place] [address] 2[place] [address] [email or web address] Historical LMR Provider 05/03/17 07/21/21 Sandra Gross MD [address] [place] [address], [address] [place] [address] Historical LMR Provider 05/03/17 07/21/21 Miguel Solomon, LEENA [address] [place] [address], [address] [place] [address] Historical LMR Provider 05/03/17 07/21/21 Day Chandra MD [address] [place] [address], [address] [place] [address] Historical LMR Provider 05/03/17 Bigg Caro MD [address] [place] [address], [address] [place] [address] Historical LMR Provider 05/03/17 07/21/21 Wilfred Jones CNP [address] [facility], 2nd [place] [address] [email or web address] Historical LMR Provider 05/03/17 07/21/21 Jamaal Hernandez MD [address] [facility] Floor 1 [place] [address] [email or web address] Historical LMR Provider 05/03/17 07/21/21 Chloe Zaragoza CNP [address] [facility], [address] [place] [address] [email or web address] Historical LMR Provider 05/03/17 Edwin Burnette MD [address] [facility] [place] [address] Hospitalist 11/14/21 documented as of this encounter Additional Source Comments The information contained in this document represents components of the legal health record. It is not the complete legal health record.[facility]
--- OUTSIDE RECORDS SUMMARY | 2025-05-19 11:11 | XMS_ITS | Encounter Summary ---
Author Organization [facility] Address [address] [employer] [facility] [address] [place] [address] Phone Care Team Providers Care Paper Tube Grader Name Role Phone Chloe Zaragoza ROAD CONTRACTOR Unavailable [phone] Luis Alberto Davey MD Primary Care Provider [phone] Edwin Burnette MD Unavailable [phone] Encounter Details Date Type Department Care Team (Late st Contact Info) Description 11/19/2021 Procedure Pass [address] [place] [address] Social History Tobacco Use Types Packs/Day Years [...] Description 07/06/2025 1:45 PM EST Office Visit [facility] [address] [place] [address] [place] [address] Luis Alberto Davey MD 22 [facility], [address] [place] [address] documented as of this encounter Visit Diagnoses Not on filedocumented in this encounter Care Teams Paper Tube Grader Relationship Specialty Start Date End Date Luis Alberto Davey MD [address] [place] [address], [address] [place] [address] PCP - General 05/19/17 Chloe Zaragoza CNP [address] [place] [address], [address] [place] [address] Historical LMR Provider 05/03/17 Edwin Burnette MD [address] [facility] [place] [address] Hospitalist 11/14/21 documented as of this encounter Additional Source Comments The information contained in this document represents components of the legal health record. It is not the complete legal health record.[facility]
--- OUTSIDE RECORDS SUMMARY | 2025-05-19 11:11 | XMS_ITS | Encounter Summary ---
Author Organization [facility] Address [address] [facility] [address] [place] [address] Phone Care Team Providers Care Data Processing Specialist Name Role Phone Chloe Zaragoza COMMUNICATION STUDIES PROFESSOR Unavailable [phone] Luis Alberto Davey MD Primary Care Provider [phone] Edwin Burnette MD Unavailable [phone] Reason for Visit * Reason Onset Date Comments Referral 11/11/2022 Rectal Bleeding 11/11/2022 Encounter Details Date Type Department Care Team (Late st Contact Info) Description 11/11/2022 Telephone [facility] [address] [place] [address] Luis Alberto Davey MD 22 [facility], [address] [place], [place] [id number] [email or web address] [...] Description 07/06/2025 1:45 PM EST Office Visit [address] [place] [address] Luis Alberto Davey MD [address] [place] [address], [address] [place] [address] documented as of this encounter Visit Diagnoses Not on filedocumented in this encounter Additional Health Concerns Assessment Noted Time PHQ-2 Depression Total Score: 0 07/04/20 1:20 PM EST documented as of this encounter Care Teams Data Processing Specialist Relationship Specialty Start Date End Date Luis Alberto Davey MD [address] [place] [address], [address] [place] [address] PCP - General 05/19/17 Chloe Zaragoza CNP [address] [place] [address], [address] [place] [address] Historical LMR Provider 05/03/17 Edwin Burnette MD [address] [facility] [place] [address] Hospitalist 5/4/22 documented as of this encounter Additional Source Comments The information contained in this document represents components of the legal health record. It is not the complete legal health record.[facility]
--- OUTSIDE RECORDS SUMMARY | 2025-05-19 11:11 | XMS_ITS | Encounter Summary ---
Author Organization [facility] Address [address] [facility] [address] [place] [address] Phone Care Team Providers Care Music Professor Name Role Phone Luis Alberto Davey MD Unavailable +[phone] Romie Arevalo MD Unavailable +-58 Ann Snyder MD Unavailable [phone] Justo Gurrola SPIRITUAL MINISTER Unavailable [phone] Sandra Gross MD Unavailable +37 Miguel Solomon WATERSHED ENGINEER Unavailable +1-41 Day Chandra MD Unavailable +-[phone] Bigg Caro MD Unavailable +-[phone] Wilfred Jones WATERSHED ENGINEER Unavailable +[phone] Jamaal Hernandez MD Unavailable +1-4 Chloe Zaragoza WATERSHED ENGINEER Unavailable [phone] Luis Alberto Davey MD Primary Care Provider + Edwin Burnette MD Unavailable [phone] Encounter Details Date Type Department Care Team (Latest Contact Info) Description 08/07/2018 Transcribe Orders [facility] Specimen Processing [address] [place] [address] Luis Alberto Davey MD [address] [place] [address], [address] [place] [address] [email or web address] Mechanical and motor problems with [...] Description 07/06/2025 1:45 PM EST Office Visit [address] [address] Luis Alberto Davey MD [address] [place] [address], [address] [place] [address] documented as of this encounter Results * Rapid influenza A and B (08/07/2018 10:38 AM EST) Influenza A Ag Negative Negative [facility] Influenza B Ag Negative Negative [facility] Other (Nasal) 08/07/2018 10: 38 AM EST 08/07/2018 4:03 PM EST us Luis Alberto Davey MD MICROBIOLOGY - GENERAL ORDERAB LES Final Result [address] [address] documented in this encounter Visit Diagnoses Diagnosis Mechanical and motor problems with internal organs- Primary documented in this encounter Additional Health Concerns Infection Onset Date Last Indicated Resolved Time CoV-Exposed Comment:Recent close contact documented in the COVID-19 PCR/PRO order 05/30/2021 06/06/2021 06/14/2021 1:[address] documented as of this encounter Care Teams Music Professor Relationship Specialty Start Date End Date Luis Alberto Davey MD [address] [place] [address], [address] [place] [address] [email or web address] PCP - General 05/19/17 Luis Alberto Davey MD [address] [place] [address], [address] [place] [address] Historical LMR Provider 05/03/17 2 Romie Arevalo MD [address] [place] [address], [address] [place] [address] [email or web address] Historical LMR Provider 05/03/17 07/21/21 Ann Snyder MD [address] [place] [address] [email or web address] Historical LMR Provider 05/03/17 07/21/21 Justo Gurrola NP [address] [place] [address] 2_[place] [address] [email or web address] Historical LMR Provider 05/03/17 07/21/21 Sandra Gross MD [address] [place] [address], 2nd [place] [address] Historical LMR Provider 05/03/17 07/21/21 Miguel Solomon, WATERSHED ENGINEER 22 [facility], [address] [place] [address] Historical LMR Provider 05/03/17 07/21/21 Day Chandra MD [address] [place] [address], 2nd [place] [address] Historical LMR Provider 05/03/17 Bigg Caro MD [address] [place] [address], [address] [place] [address] Historical LMR Provider 05/03/17 07/21/21 Wilfred Jones, WATERSHED ENGINEER [address] [place] [address], 2[address] [place] [address] [email or web address] Historical LMR Provider 05/03/17 07/21/21 Jamaal Hernandez MD 22 [facility] Floor 1 [place] [address] [email or web address] Historical LMR Provider 05/03/17 07/21/21 Chloe Zaragoza CNP [address] [place] [address], [address] [place] [address] Historical LMR Provider 05/03/17 Edwin Burnette MD 3300 [facility] [place] [address] Hospitalist 11/14/21 documented as of this encounter Additional Source Comments The information contained in this document represents components of the legal health record. It is not the complete legal health record.[facility]
--- OUTSIDE RECORDS SUMMARY | 2025-05-19 11:11 | XMS_ITS | Encounter Summary ---
Author Organization [facility] Address [address] [place] [address] Phone Care Team Providers Care Manager Functional Name Role Phone Chloe Zaragoza LEENA Unavailable [phone] Luis Alberto Davey MD Primary Care Provider [phone] Edwin Burnette MD Unavailable [phone] Encounter Details Date Type Department Care Team (Late st Contact Info) Description 04/19/2025 Orders Only [facility] [place] [address] Provider, MD Safia [facility] [place] [address] Social History Tobacco Use Types Packs/Day Years [...] as of this encounter Progress Notes * Luis Alberto Davey MD - 04/19/2025 11:07 AM EDT Notify patient normal test result documented in this encounter Plan of Treatment Upcoming Encounters Date Type Department Care Team (Late st Contact Info) Description 07/06/2025 1:45 PM EST Office Visit [facility] [address] [place] [address] Luis Alberto Davey MD 22 [facility], [address] [place] [address] [email or web address] documented as of this encounter Procedures Procedure Name Priority Date/Time Associated Diagnosis Comments OUTSIDE IMAGING Routine 04/19/2025 11:07 AM EDT OUTSIDE LAB Routine 04/18/2025 1:57 PM EDT documented in this encounter Results * Outside Imaging Report Only (04/19/2025 11:07 AM EDT) Historical Provider IMG XR CHEST Final Res ult * Outside Lab (04/18/2025 1:57 PM EDT) us Historical Provider LAB BLOOD BKR ORDERABLES Edited Result - Final documented in this encounter Visit Diagnoses Not on filedocumented in this encounter Additional Health Concerns Assessment Noted Time PHQ-2 Depression Total Score: 0 04/16/20 24 9:55 AM EDT documented as of this encounter Care Teams Manager Functional Relationship Specialty Start Date End Date Luis Alberto Davey MD 22 [facility], [address] [place] [address] [email or web address] PCP - General 05/19/17 Chloe Zaragoza, LEENA [address] [place] [address], [address] [place] [address] [email or web address] Historical LMR Provider 05/03/17 Edwin Burnette MD 3300 [facility] [place] [address] Hospitalist 11/14/21 documented as of this encounter Additional Source Comments The information contained in this document represents components of the legal health record. It is not the complete legal health record.[facility]
--- OUTSIDE RECORDS SUMMARY | 2025-05-19 11:11 | XMS_ITS | Encounter Summary ---
Author Organization [facility] Address [address] [facility] [address] [place] [address] Phone Care Team Providers Care Over Short And Damage Clerk Name Role Phone Luis Alberto Davey MD Unavailable +-[phone] Romie Arevalo MD Unavailable +-58 Ann Snyder MD Unavailable [phone] Justo Gurrola FACILITIES LOCATOR Unavailable [phone] Sandra Gross MD Unavailable +37 Miguel Solomon DEVELOPMENT SYSTEM EFFICIENCY MANAGER Unavailable +1-41 Day Chandra MD Unavailable +-[phone] Bigg Caro MD Unavailable +-[phone] Wilfred Jones DEVELOPMENT SYSTEM EFFICIENCY MANAGER Unavailable [phone] Jamaal Hernandez MD Unavailable +1-4 Chloe Zaragoza DEVELOPMENT SYSTEM EFFICIENCY MANAGER Unavailable [phone] Luis Alberto Davey MD Primary Care Provider + Edwin Burnette MD Unavailable [phone] Encounter Details Date Type Department Care Team (Latest Contact Info) Description 05/19/2017 Transcribe Orders [facility] Lab Main [address] [place] [address] Matthew Billings MD [address] [facility], [address] [place] [address] [email or web address] Benign localized hyperplasia of prostate with urinary [...] 07/06/2025 1:45 PM EST Office Visit [facility] [address] [place] [address] Luis Alberto Davey MD 22 [facility], [address] [place] [address] [email or web address] documented as of this encounter Procedures Procedure Name Priority Date/Time Associated Diagnosis Comments PSA (SCREENING) Routine 05/19/2017 8:40 AM EST Benign localized hyperplasia of prostate with urinary retention documented in this encounter Results * PSA (screening) (05/19/2017 8:40 AM EST) PSA 2.94 0 - 4.00 ng/mL [facility] Blood 05/19/2017 8:40 AM EST 05/19/2017 2:37 PM EST us Matthew Billings MD LAB BLOOD BKR ORDERABLES Final R esult [facility] [address] [place] [address] documented in this encounter Visit Diagnoses Diagnosis [...] documented as of this encounter Care Teams Over Short And Damage Clerk Relationship Specialty Start Date End Date Luis Alberto Davey MD [address] [place] [address], [address] [address] PCP - General 05/19/17 Luis Alberto Davey MD [address] [place] [address], [address] [address] Historical LMR Provider 05/03/17 2 Romie Arevalo MD [address] [place] [address], [address] [address] Historical LMR Provider 05/03/17 07/21/21 Ann Snyder MD [address] [place] [address] [email or web address] Historical LMR Provider 05/03/17 07/21/21 Justo Gurrola NP [address] [place] [address] 2_[place] [address] [email or web address] Historical LMR Provider 05/03/17 07/21/21 Sandra Gross MD [address] [place] [address] [email or web address] Historical LMR Provider 05/03/17 07/21/21 Miguel Solomon, DEVELOPMENT SYSTEM EFFICIENCY MANAGER 22 [facility], [address] [place] [address] Historical LMR Provider 05/03/17 07/21/21 Day Chandra MD [address] [place] [address] Historical LMR Provider 05/03/17 Bigg Caro MD [address] [place] [address], [address] [place] [address] Historical LMR Provider 05/03/17 07/21/21 Wilfred Jones, DEVELOPMENT SYSTEM EFFICIENCY MANAGER [address] [place] [address] Historical LMR Provider 05/03/17 07/21/21 Jamaal Hernandez MD [address] [facility] 1 [place] [address] [email or web address] Historical LMR Provider 05/03/17 07/21/21 Chloe Zaragoza CNP [address] [place] [address], [address] [place] [address] Historical LMR Provider 05/03/17 Edwin Burnette MD 3300 [facility] [place] [address] Hospitalist 11/14/21 documented as of this encounter Additional Source Comments The information contained in this document represents components of the legal health record. It is not the complete legal health record.[facility]
--- OUTSIDE RECORDS SUMMARY | 2025-05-19 11:11 | XMS_ITS | Encounter Summary ---
Author Organization [facility] Address [address] [facility] [address] [place] [address] Phone Care Team Providers Care Qc Scientist Name Role Phone Luis Alberto Davey MD Unavailable +-[phone] Romie Arevalo MD Unavailable +-58 Ann Snyder MD Unavailable Justo Gurrola NEWSPAPER SUBSCRIPTION SOLICITOR Unavailable [phone] Sandra Gross MD Unavailable +37 Miguel Solomon GROUP SOCIAL WORKER Unavailable +1-41 Day Chandra MD Unavailable +-[phone] Bgig Caro MD Unavailable +-[phone] Wilfred Jones GROUP SOCIAL WORKER Unavailable +[phone] Jamaal Hernandez MD Unavailable +1-4 Chloe Zaragoza GROUP SOCIAL WORKER Unavailable [phone] Luis Alberto Davey MD Primary Care Provider + Edwin Burnette MD Unavailable [phone] Encounter Details Date Type Department Care Team (Late st Contact Info) Description 12/01/2020 Ancillary Orders [facility] [address] 3rd [place] [address] Greg Cross DO 22 [facility] [address] [place] [address] [email or web address] PVD (peripheral vascular disease) Social History Tobacco [...] 07/06/2025 1:45 PM EST Office Visit [address] [place] [address] Luis Alberto Davey MD 22 [facility], [address] [place] [address] [email or web address] documented as of this encounter Results * [...] documented as of this encounter Care Teams Qc Scientist Relationship Specialty Start Date End Date Luis Alberto Davey MD [address] [place] [address], [address] [place] [address] PCP - General 05/19/17 Luis Alebrto Davey MD [address] [place] [address], [address] [address] Historical LMR Provider 05/03/17 2 Romie Arevalo MD [address] [place] [address], [address] [place] [address] Historical LMR Provider 05/03/17 07/21/21 Ann Snyder MD [address] [place] [address] [email or web address] Historical LMR Provider 05/03/17 07/21/21 Justo Gurrola NP [address] [place] [address] 2_[place] [address] [email or web address] Historical LMR Provider 05/03/17 07/21/21 Sandra Gross MD [address] [place] [address], 2nd [place] [address] Historical LMR Provider 05/03/17 07/21/21 Miguel Solomon, GROUP SOCIAL WORKER 22 [facility], [address] [place] [address] Historical LMR Provider 05/03/17 07/21/21 Day Chandra MD [address] [place] [address], 2nd [place] [address] Historical LMR Provider 05/03/17 Bigg Caro MD [address] [place] [address], [address] [place] [address] Historical LMR Provider 05/03/17 07/21/21 Wilfred Jones GROUP SOCIAL WORKER [address] [place] [address], 2nd [place] [address] Historical LMR Provider 05/03/17 07/21/21 Jamaal Hernandez MD 22 [facility] Floor 1 [place] [address] [email or web address] Historical LMR Provider 05/03/17 07/21/21 Chloe Zaragoza CNP [address] [place] [address], [address] [place] [address] [email or web address] Historical LMR Provider 05/03/17 Edwin Burnette MD [facility] [place] [address] Hospitalist 11/14/21 documented as of this encounter Additional Source Comments The information contained in this document represents components of the legal health record. It is not the complete legal health record.[facility]
--- OUTSIDE RECORDS SUMMARY | 2025-05-19 11:12 | XMS_ITS | Encounter Summary ---
Author Organization [facility] Address [address] [facility] [address] [place] [address] Phone Care Team Providers Care Electronic Intelligence Officer Name Role Phone Luis Alberto Davey MD Unavailable +-[phone] Romie Arevalo MD Unavailable +-58 Ann Snyder MD Unavailable [phone] Justo Gurrola MANAGER CASE MANAGEMENT Unavailable [phone] Sandra Gross MD Unavailable +37 Miguel Solomon WOOD CALKER Unavailable +1-41 Day Chandra MD Unavailable +-[phone] Bigg Caro MD Unavailable +-[phone] Wilfred Jones WOOD CALKER Unavailable +[phone] Jamaal Hernandez MD Unavailable +1-4 Chloe Zaragoza WOOD CALKER Unavailable [phone] Luis Alberto Davey MD Primary Care Provider + Edwin Burnette MD Unavailable [phone] Encounter Details Date Type Department Care Team (Late Contact Info) Description 06/30/2017 Procedure Pass [facility] Endoscopy Admitting Dept Virtual Department [address] [place] [address] Social History Tobacco Use Types Packs/Day Years [...] Upcoming Encounters Date Type Department Care Team ([facility] Contact Info) Description 07/06/2025 1:45 PM EST Office Visit [facility] 22 [place] [address] Luis Alberto Davey MD [address] [place] [address], [address] [place] [address] [email or web address] documented as of this encounter Visit Diagnoses Not on filedocumented in this encounter Additional Health Concerns Infection Onset Date Last Indicated Resolved Time CoV-Exposed Comment:Recent close contact documented in the COVID-19 PCR/PRO order 05/30/2021 06/06/2021 06/14/2021 1:[address] documented as of this encounter Care Teams Electronic Intelligence Officer Relationship Specialty Start Date End Date Luis Alberto Davey MD [address] [place] [address], [address] [place] [address] PCP - General 05/19/17 Luis Alberto Davey MD [address] [place] [address], [address] [place] [address] Historical LMR Provider 05/03/17 2 Romie Arevalo MD [address] [place] [address], [address] [place] [address] Historical LMR Provider 05/03/17 07/21/21 Ann Snyder MD [address] [place] [address] [email or web address] Historical LMR Provider 05/03/17 07/21/21 Justo Gurrola NP [address] [place] [address] 2_[place] [address] [email or web address] Historical LMR Provider 05/03/17 07/21/21 Sandra Gross MD [address] [place] [address], [address] [place] [address] Historical LMR Provider 05/03/17 07/21/21 Miguel Solomon, LEENA [address] [place] [address], [address] [place] [address] Historical LMR Provider 05/03/17 07/21/21 Day Chandra MD [address] [place] [address], [address] [place] [address] Historical LMR Provider 05/03/17 Bigg Caro MD [address] [place] [address], [address] [place] [address] Historical LMR Provider 05/03/17 07/21/21 Wilfred Jones CNP 15 [facility], 2nd [place] [address] [email or web address] Historical LMR Provider 05/03/17 07/21/21 Jamaal Hernandez MD 22 [facility] Floor 1 [place] [address] [email or web address] Historical LMR Provider 05/03/17 07/21/21 Chloe Zaragoza CNP 22 [facility], [address] [place] [address] [email or web address] Historical LMR Provider 05/03/17 Edwin Burnette MD 3300 [facility] [place] [address] Hospitalist 11/14/21 documented as of this encounter Additional Source Comments The information contained in this document represents components of the legal health record. It is not the complete legal health record.[facility]
--- OUTSIDE RECORDS SUMMARY | 2025-05-19 11:12 | XMS_ITS | Encounter Summary ---
Author Organization [facility] Address [address] [place] [address] Phone Care Team Providers Care Uniformer Name Role Phone EnioDeyanira deckeralana STERN Unavailable [phone] Luis Alberto Davey MD Primary Care Provider [phone] Edwin Burnette MD Unavailable [phone] Encounter Details Date Type Department Care Team (Late st Contact Info) Description 03/13/2024 Procedure Pass [facility] 30 [place] [address] Social History Tobacco Use Types Packs/Day Years [...] 12:23 PM EDT Valerie King RN * [place] Suicide Severity Rating Scale (Screener/Recent Self-Report) Question [...] 07/06/2025 1:45 PM EST Office Visit [facility] [address] [place] [address] [place] [address] Luis Alberto Davey MD [address] [place] [address], [address] [place] [address] documented as of this encounter Visit Diagnoses Not on filedocumented in this encounter Additional Health Concerns Assessment Noted Time PHQ-2 Depression Total Score: 0 07/04/20 22 1:20 PM EST documented as of this encounter Care Teams Uniformer Relationship Specialty Start Date End Date Luis Alberto Davey MD [address] [place] [address], [address] [place] [address] PCP - General 05/19/17 Chloe Zaragoza CNP 22 [facility], [address] [place] [address] Historical LMR Provider 05/03/17 Edwin Burnette MD [facility] [place] [address] Hospitalist 11/14/21 documented as of this encounter Additional Source Comments The information contained in this document represents components of the legal health record. It is not the complete legal health record.[facility]
--- OUTSIDE RECORDS SUMMARY | 2025-05-19 11:12 | XMS_ITS | Encounter Summary ---
Author Organization [facility] Address [address] [facility] [address] [place] [address] Phone Care Team Providers Care Senior Marketing Data Analyst Name Role Phone Chloe Zaragoza CNP Unavailable [phone] Luis Alberto Davey MD Primary Care Provider [phone] Edwin Burnette MD Unavailable [phone] Reason for Visit * Reason Onset Date Comments Triage 10/21/2024 Red+rectal bleed ing Encounter Details Date Type Department Care Team (Late st Contact Info) Description 10/21/2024 Nurse Triage [address] [place], [place] [id number] Luis Alberto Davey MD [address] [facility] [place], [place] [id number] [email or web address] Triage (Red+rectal bleeding) Social History Tobacco Use [...] 11:57 AM EDT Natanael Harris RN * [place] Suicide Severity Rating Scale (Screener/Recent Self-Report) Question [...] a TCM appointment- patient was seen at [facility] ED 10/22 and underwent an outpatient sigmoidoscopy on 10/25. If he is having symptoms that necessitate a sooner visit, please document these & return to triage. Otherwise, it is clinically appropriate to follow up in the next available slot with PCP. He can also contact GI. * Main Mcdonald - 10/27/2024 11:33 AM EDT Transitional Care Management New Patient: YES/NO: no Hospitalization Name: [facility] Discharge Date: 10/25/2024 Reason for Visit+ Diagnosis: [...] said he needs to be see sooner. [facility] CSS Agent (Please do not [...] blood. Please contact and advise. Central Support Knitted Cloth Examiner (Please do not reply to this user; this inbox is not monitored.) Thank you. * Treva Ray RN - 10/21/2024 1:43 PM EDT Notified patient this caller spoke with [facility] and they stated the patient was [...] 1:42 PM EDT Spoke with Latoya at [facility]. Dr. Neal is doing scopes all [...] from him. Advised this caller will call [facility] and will call him back. * Eva Glaser - 10/21/2024 11:36 AM EDT CD PEN Top Smart Phrases: Red Yellow Green Guidelines Select Red, Yellow, Green Triage Intake *Route to appropriate staff member/pool according to practice guidelines* Red Call Intake Call Back Number: (if not patient, name/relationship and if patient is with caller) [phone] Red Symptom(s): Rectal bleeding When did these [...] Description 07/06/2025 1:45 PM EST Office Visit [address] [place] [address] Luis Alberto Davey MD [address] [place] [address], [address] [address] Scheduled Orders Name Type Priority Associated Diagnoses Orde r Schedule CBC Lab Routine Rectal bleeding Expected: 10/22/2024, Expires: 6 documented as of this encounter Visit Diagnoses Diagnosis Rectal bleeding- Primary Hemorrhage of rectum and anus documented in this encounter Additional Health Concerns Assessment Noted Time PHQ-2 Depression Total Score: 0 04/16/20 24 9:55 AM EDT documented as of this encounter Care Teams Senior Marketing Data Analyst Relationship Specialty Start Date End Date Luis Alberto Davey MD [address] [place] [address], [address] [place] [address] PCP - General 05/19/17 Chloe Zaragoza CNP [address] [place] [address], [address] [place] [address] Historical LMR Provider 05/03/17 Edwin Burnette MD [address] [facility] [place] [address] Hospitalist 11/14/21 documented as of this encounter Additional Source Comments The information contained in this document represents components of the legal health record. It is not the complete legal health record.[facility]
--- OUTSIDE RECORDS SUMMARY | 2025-05-19 11:12 | XMS_ITS | Encounter Summary ---
Author Organization [facility] Address [address] [address] [place] [address] Phone Care Team Providers Care Grooming Salon Manager Name Role Phone Chloe Zaragoza PATIENT CASE COORDINATOR Unavailable [phone] Luis Alberto Davey MD Primary Care Provider [phone] Edwin Burnette MD Unavailable [phone] Reason for Visit * Reason Onset Date Comments Referral 11/14/2023 Encounter Details Date Type Department Care Team (Late st Contact Info) Description 11/14/2023 Telephone [facility] [address] [place] [address] [place] [address] Luis Alberto Daevy MD [address] [facility] [place], [place] [phone] [email or web address] Referral Social History Tobacco Use Types Packs/Day [...] Please contact pt and advise. Central Support Spring Coiling Machine Setter (Please do not reply to this user; [...] Patient called requesting a referral to an Senior Merchandiser and states will be happy to go to whatever provider Dr Davey would recommend. Please advise. Thank you! documented in this encounter Plan of Treatment Upcoming Encounters Date Type Department Care Team (Late st Contact Info) Description 07/06/2025 1:45 PM EST Office Visit [facility] [address] [place] [address] Luis Alberto Davey MD [address] [facility] [place] [address] [email or web address] documented as of this encounter Visit Diagnoses Diagnosis Vertigo- Primary Dizziness and giddiness documented in this encounter Additional Health Concerns Assessment Noted Time PHQ-2 Depression Total Score: 0 07/04/20 22 1:20 PM EST documented as of this encounter Care Teams Grooming Salon Manager Relationship Specialty Start Date End Date Luis Alberto Davey MD [address] [facility] [place] [address] [email or web address] PCP - General 05/19/17 Chloe Zaragoza CNP [address] [place] [address], [address] [place] [address] Historical LMR Provider 05/03/17 Edwin Burnette MD [address] [facility] [place] [address] Hospitalist 11/14/21 documented as of this encounter Additional Source Comments The information contained in this document represents components of the legal health record. It is not the complete legal health record.[facility]
--- OUTSIDE RECORDS SUMMARY | 2025-05-19 11:12 | XMS_ITS | Encounter Summary ---
Author Organization [facility] Address [address] [facility] [address] [place] [address] Phone Care Team Providers Care Lozenge Maker Helper Name Role Phone Luis Alberto Davey MD Unavailable [phone] Romie Arevalo MD Unavailable [phone] Ann Snyder MD Unavailable [phone] Justo Gurrola IN HOME SALES CONSULTANT Unavailable [phone] Sandra Gross MD Unavailable [phone] Miguel Solomon COVER MAKING MACHINE OPERATOR Unavailable [phone] Day Chandra MD Unavailable [phone] Bigg Caro MD Unavailable [phone] Wilfred Jones COVER MAKING MACHINE OPERATOR Unavailable [phone] Jamaal Hernandez MD Unavailable +[phone] Chloe Zaragoza COVER MAKING MACHINE OPERATOR Unavailable [phone] Luis Alberto Davey MD Primary Care Provider + Edwin Burnette MD Unavailable [phone] Encounter Details Date Type Department Care Team (Late Contact Info) Description 03/22/2021 Procedure Pass [facility], Ct Scan - [address] [place] [address] Social History Tobacco Use Types Packs/Day Years [...] 4:44 AM EDT Vibha Reich, RALPH * [place] Suicide Severity Rating Scale (Screener/Recent Self-Report) Question [...] 07/06/2025 1:45 PM EST Office Visit [address] [address] Luis Alberto Davey MD [address] [facility] [place] [address] documented as of this encounter Visit Diagnoses Not on filedocumented in this encounter Additional Health Concerns Infection Onset Date Last Indicated Resolved Time CoV-Exposed Comment:Recent close contact documented in the COVID-19 PCR/PRO order 05/30/2021 06/06/2021 06/14/2021 1:[address] documented as of this encounter Care Teams Lozenge Maker Helper Relationship Specialty Start Date End Date Luis Alberto Davey MD [address] [facility], [address] [place] [address] PCP - General 05/19/17 Luis Alberto Davey MD [address] [facility] [place] [address] Historical LMR Provider 05/03/17 2 Romie Arevalo MD [address] [facility] [place] [address] Historical LMR Provider 05/03/17 07/21/21 Ann Snyder MD [address] [place] [address] [email or web address] Historical LMR Provider 05/03/17 07/21/21 Justo Gurrola, MARYANNE [address] [place] [address] 2_[place] [address] [email or web address] Historical LMR Provider 05/03/17 07/21/21 Sandra Gross MD [address] [facility], 2nd [place] [address] Historical LMR Provider 05/03/17 07/21/21 Miguel Solomon, COVER MAKING MACHINE OPERATOR [address] [place] [address], [address] [place] [address] Historical LMR Provider 05/03/17 07/21/21 Day Chandra MD [address] [facility], 2nd [place] [address] Historical LMR Provider 05/03/17 Bigg Caro MD [address] [facility] [place] [address] Historical LMR Provider 05/03/17 07/21/21 Wilfred Jones COVER MAKING MACHINE OPERATOR [address] [place] [address], [address] [place] [address] Historical LMR Provider 05/03/17 07/21/21 Jamaal Hernandez MD [address] [facility] Floor 1 [place] [address] [email or web address] Historical LMR Provider 05/03/17 07/21/21 Chloe Zaragoza CNP [address] [facility] [place] [address] Historical LMR Provider 05/03/17 Edwin Burnette MD [address] [place] [address] [place] [address] Hospitalist 11/14/21 documented as of this encounter Additional Source Comments The information contained in this document represents components of the legal health record. It is not the complete legal health record.[facility]
--- OUTSIDE RECORDS SUMMARY | 2025-05-19 11:12 | XMS_ITS | Clinical Summary ---
Author Organization [facility] Address [address] [facility] [address] [place] [address] Phone Care Team Providers Care Photoengraving Etcher Name Role Phone FeliDeyanira milianalana STERN Unavailable [phone] Prema Demarco MD Primary Care Provider [phone] Edwin Burnette MD Unavailable [phone] Allergies Active Allergy Reactions Criticality Noted [...] for anxiety. 90 tablet 04/13/20 25 Active Active Problems Problem Noted Date Diagnosed Date [...] RUPTURE WRITTEN ON 07/15/2018 3:29 PM BY DARÍO CORRAL MD Stable on CTA Assessment & Plan [...] size, greater than 5 cm, referral to [facility] Dr. Atkinson for consultation to address management options. 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 Morel. He states that [facility] will be following up with his repeat scans. Have given him the fax number to our office to make sure that [facility] sends over the reports to his scans [...] Zosyn as above. Acute cholecystitis 07/15/2018 05/03/20 Assessment & Plan (07/17/2018 9:53 PM EST): [...] Encounters Date Type Department Care Team Description 05/19/[address] [place] [address] Prema Demarco MD Referral ([facility] Cardology + insurance referral) 04/19/2025 Orders Only [address] [place] [address] ProviderSafia MD 04/11/[address] [place] [address] Prema Demarco MD Medication Refill (Clonazepam 1 mg tab) 04/11/[address] [place] [address] Prema Demarco MD Request For Order(s) (MRI ) 03/10/2025 1:30 PM EDT Office Visit [address] [place] [address] Prema Demarco MD Malaise and fatigue (Primary Dx); Abscess of buttock, right; Erectile dysfunction, unspecified erectile dysfunction type 03/07/2025 Telephone [facility] [address] [place] [address] Prema eDmarco MD Triage (Green+Discuss energy levels) from Last [...] 07/06/2025 1:45 PM EST Office Visit [facility] [address] [place] [address] Prema Demarco MD [address] [facility] [place] [address] [email or web address] Health Maintenance Due Date Last Done Comments [...] this topic Medical Devices Implanted Type Area Estate Conservator Device Identifier Shelf Expiration Date Model / Serial / Lot Cardiac Stent Procedures Procedure Name Priority Date/Time Associated Diagnosis Comments OUTSIDE IMAGING Routine 04/19/2025 11:07 AM EDT OUTSIDE LAB Routine 04/18/2025 1:57 PM EDT from Last 3 Months Results * Outside Imaging Report Only (04/19/2025 11:07 AM EDT) us Historical Provider IMG XR CHEST Final Res ult * Outside Lab (04/18/2025 1:57 PM EDT) us Historical Provider LAB BLOOD BKR ORDERABLES Edited Result - Final from Last 3 Months Insurance [employer] REPLAC[employer] MEDICARE PART A & B MEDICARE PART A & B [employer] MEDICARE PART A & B [employer] REPLAC[employer] MEDICARE PART A & B [employer] REPLACEMENT MEDICARE PART A & B [employer] REPLAC[employer]AC[employer] MEDICARE PART A & B Advance Directives For more information, please contact: [phone] (9AM - 5PM [facility], Friday-Friday) Documents on File Type Date Recorded Patient Library Manager Expl anation Healthcare Proxy 03/29/2024 6:13 PM [...] Health care Agent (Proxy form on file) Patricia Clark Daughter .Primary Health Care Agent (Proxy form on file) Care Teams Photoengraving Etcher Relationship Specialty Start Date End Date Prema Demarco MD [address] [place] [address], [address] [address] PCP - General 05/19/17 Chloe Zaragoza CNP [address] [place] [address], [address] [place] [address] Historical LMR Provider 05/03/17 Edwin Burnette MD [facility] [place] [address] Hospitalist 11/14/21 Additional Source Comments The information contained in this document represents components of the legal health record. It is not the complete legal health record.[facility]
--- OUTSIDE RECORDS SUMMARY | 2025-05-19 11:12 | XMS_ITS | Encounter Summary ---
Author Organization [facility] Address [address] [facility] [address] [place] [address] Phone Care Team Providers Care County Tax Assessor Name Role Phone Luis Alberto Davey MD Unavailable [phone] Romie Arevalo MD Unavailable +-[phone] Ann Snyder MD Unavailable [phone] Justo Gurrola TECHNOLOGIST DEVELOPMENT Unavailable [phone] Sandra Gross MD Unavailable [phone] Miguel Solomon PRINCIPAL SCIENTIST Unavailable +[phone] Day Chandra MD Unavailable [phone] Bigg Caro MD Unavailable [phone] Wilfred Jones PRINCIPAL SCIENTIST Unavailable [phone] Jamaal Hernandez MD Unavailable +[phone] Chloe Zaragoza PRINCIPAL SCIENTIST Unavailable [phone] Luis Alberto Davey MD Primary Care Provider + Edwin Burnette MD Unavailable [phone] Encounter Details Date Type Department Care Team (Late Contact Info) Description 06/30/2017 Procedure Pass [facility] Endoscopy Admitting Dept Virtual Department [address] [place] [address] Social History Tobacco Use Types Packs/Day Years [...] Upcoming Encounters Date Type Department Care Team ([facility] Contact Info) Description 07/06/2025 1:45 PM EST Office Visit [facility] [address] [place] [address] Luis Alberto Davey MD [address] [place] [address], [address] [place] [address] [email or web address] documented as of this encounter Visit Diagnoses Not on filedocumented in this encounter Additional Health Concerns Infection Onset Date Last Indicated Resolved Time CoV-Exposed Comment:Recent close contact documented in the COVID-19 PCR/PRO order 05/30/2021 06/06/2021 06/14/2021 1:[address] documented as of this encounter Care Teams County Tax Assessor Relationship Specialty Start Date End Date Luis Alberto Davey MD [address] [place] [address], [address] [place] [address] [email or web address] PCP - General 05/19/17 Luis Alberto Davey MD [address] [place] [address], [address] [place] [address] Historical LMR Provider 05/03/17 2 Romie Arevalo MD [address] [place] [address], [address] [place] [address] Historical LMR Provider 05/03/17 07/21/21 Ann Snyder MD [address] [place] [address] [email or web address] Historical LMR Provider 05/03/17 07/21/21 Justo Gurrola NP [address] [place] [address] 2_[place] [address] [email or web address] Historical LMR Provider 05/03/17 07/21/21 Sandra Gross MD [address] [place] [address], [address] [place] [address] Historical LMR Provider 05/03/17 07/21/21 Miguel Solomon, LEENA [address] [place] [address], [address] [place] [address] Historical LMR Provider 05/03/17 07/21/21 Day Chandra MD [address] [place] [address], [address] [place] [address] Historical LMR Provider 05/03/17 Bigg Caro MD [address] [place] [address], [address] [place] [address] Historical LMR Provider 05/03/17 07/21/21 Wilfred Jones CNP [address] [facility], 2nd [place] [address] [email or web address] Historical LMR Provider 05/03/17 07/21/21 Jamaal Hernandez MD [address] [facility] Floor 1 [place] [address] [email or web address] Historical LMR Provider 05/03/17 07/21/21 Chloe Zaragoza CNP [address] [facility] [place] [address] [email or web address] Historical LMR Provider 05/03/17 Edwin Burnette MD [address] [facility] [place] [address] Hospitalist 11/14/21 documented as of this encounter Additional Source Comments The information contained in this document represents components of the legal health record. It is not the complete legal health record.[facility]
== END 2025-05-19 10:25 | disposition home or self-care (01) ==
LOC: HO.HVS 09:51
PROVIDERS: PCP Pediatrics; Visit Provider Surgery Vascular Surgery
DX: I71.43 Infrarenal abdominal aortic aneurysm, without rupture (principal)
CPT/HCPCS: 99214; G2211

== ENCOUNTER → 2025-05-19 09:51 | Outpatient (BNVA) | payer MEDICARE, SELFPAY | PROVIDERS: PCP Pediatrics; Visit Provider Surgery Vascular Surgery | DX: I71.43 Infrarenal abdominal aortic aneurysm, without rupture (principal) | CPT/HCPCS: 99212 ==